=== PATIENT | female | born 1940 | race Caucasian/White ===

== ENCOUNTER 2017-10-14 17:20 | Emergency (ER) | payer MEDICARE, MEDICAID ==
[2017-10-14 17:23] VITALS: BP 140/78
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
--- NOTE | 2017-10-14 18:43 | RADIOLOGY REPORT (SQ) ---
EXAM DESCRIPTION: WRIST LEFT 3 VIEWS COMPLETED DATE/TIME: 10/14/2017 6:18 pm REASON FOR STUDY: pain COMPARISON: None. NUMBER OF VIEWS: Three views. TECHNIQUE: AP, lateral, and oblique radiographic images acquired of the left wrist. LIMITATIONS: None. FINDINGS: MINERALIZATION: Normal. BONES: No acute fracture or dislocation. No worrisome bone lesions. Normal alignment. Prominent de generative changes at the 1st carpometacarpal joint with sclerosis and osteophytes. SOFT TISSUES: No soft tissue swelling. Soft tissue calcification. No foreign body. OTHER: No other significant finding. IMPRESSION: PROMINENT DEGENERATIVE CHANGES AT THE BASE OF THE THUMB. NO OTHER SIGNIFICANT FINDINGS OR ACUTE FINDINGS. TECHNICAL DOCUMENTATION: JOB ID: [id number] [employer]- All Rights Reserved
[2017-10-14] MEDS ORDERED: ACETAMINOPHEN 325 MG TABLET PO ONE (19:08)
== END 2017-10-15 01:00 | disposition home or self-care (01) ==
LOC: ER 17:20
DX: S60.862A Insect bite (nonvenomous) of left wrist, initial encounter (principal); M25.532 Pain in left wrist; W57.XXXA Bitten or stung by nonvenomous insect and other nonvenomous arthropods, initial encounter; Z87.891 Personal history of nicotine dependence
CPT/HCPCS: 99283; 73110; L3908; A9270

== ENCOUNTER 2017-12-09 15:11 | Emergency (ER) | payer MEDICARE, MEDICAID ==
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
--- NOTE | 2017-12-09 15:54 | RADIOLOGY REPORT (SQ) ---
EXAM DESCRIPTION: CT HEAD WITHOUT; CT CERVICAL SPINE WITHOUT COMPLETED DATE/TIME: 12/09/2017 3:38 pm; 12/09/2017 3:42 pm REASON FOR STUDY: TRAUMA/PAIN COMPARISON: None. TECHNIQUE: Axial images acquired through the brain and cervical spine without intravenous contrast. Images reviewed with brain, subdural, lung, soft tissue and bone windows. Reconstructed coronal and sagittal MPR images reviewed. Images stored on PACS. All CT scanners at this facility use dose modulation, iterative reconstruction, and/or weight based d osing when appropriate to reduce radiation dose to as low as reasonably achievable (ALARA). [facility]: Dose Right [facility]: CareDose [facility]: Dose Right [facility]: Teradose 4D [facility]: [employer] RADIATION DOSE: CT Rad equipment meets quality standard of care and radiation dose reduction techniq ues were employed. CTDIvol: 64.6 mGy. DLP: 1163 mGy-cm.; CT Rad equipment meets quality standard of c are and radiation dose reduction techniques were employed. CTDIvol: 19.5 mGy. DLP: 362 mGy-cm. mGy. LIMITATIONS: None. FINDINGS: Brain Minimal small vessel disease is suggested in the deep white matter. No hemorrhage or mass or shift o r hydrocephalus. No skull fracture. A clear paranasal sinuses with intact orbits. Suspect high pos terior right scalp soft tissue hematoma. Cervical spine: No significant malalignment, allowing for minimal degenerative appearing listhesis at C4-5. Multilev el spondylosis with disc and facet disease throughout. No fracture or bone lesion. Mild ligament th ickening with calcification posterior to the odontoid ; mild encroachment on the central canal here. Soft tissues normal. Lung apices clear. IMPRESSION: 1. No acute brain pathology. 2. No acute findings in the cervical spine, degenerative changes are present. TECHNICAL DOCUMENTATION: JOB ID: [id number] Quality ID # [id number]: Final reports with documentation of one or more dose reduction techniques (e.g., Au tomated exposure control, adjustment of the mA and/or kV according to patient size, use of iterative reconstruction technique) 2010 [employer]- All Rights Reserved
--- NOTE | 2017-12-09 16:09 | RADIOLOGY REPORT (SQ) ---
EXAM DESCRIPTION: SACRUM AND COCCYX COMPLETED DATE/TIME: 12/09/2017 3:52 pm REASON FOR STUDY: TRAUMA/PAIN COMPARISON: None. NUMBER OF VIEWS: Three views. TECHNIQUE: AP, lateral, and tilt views of the sacrum and coccyx. LIMITATIONS: Osteopenia. FINDINGS: MINERALIZATION: Osteopenia. BONES: No acute fracture or dislocation. No worrisome bone lesions. SOFT TISSUES: No soft tissue swelling. No foreign body. OTHER: Lower lumbar spondylosis with mild degenerative anterolisthesis at L4-5 and marked disc space narrowing at the lumbosacral junction. IMPRESSION: Limiting osteopenia. No coccyx or sacral fracture evident. TECHNICAL DOCUMENTATION: JOB ID: [id number] [employer] All Rights Reserved
[2017-12-09] MEDS ORDERED: ACETAMINOPHEN 325 MG TABLET PO ONE (16:46)
[2017-12-09 18:19] VITALS: BP 143/75
== END 2017-12-09 18:30 | disposition home or self-care (01) ==
LOC: ER 15:11
DX: S00.03XA Contusion of scalp, initial encounter (principal); S30.0XXA Contusion of lower back and pelvis, initial encounter; Y04.8XXA Assault by other bodily force, initial encounter
CPT/HCPCS: 99284; 72220; 70450; 72125; A9270

== ENCOUNTER 2019-05-12 16:16 | Emergency (ER) | payer MEDICARE, MEDICAID ==
[2019-05-12 16:30] VITALS: BP 127/76
--- NOTE | 2019-05-12 18:57 | ER Document Report ---
ED Extremity Problem, Lower - General Chief Complaint: Foot Pain Stated Complaint: FOOT SWOLLEN Time Seen by Provider: 05/12/19 18:18 Primary Care Provider: LUCIANO RODRIGUEZ FNP-C [Primary Care Provider] - Follow up as needed TRAVEL OUTSIDE OF THE [place] IN LAST 30 DAYS: No - HPI Notes: Patient is a 78-year-old female with Alzheimer's dementia that presents to the emergency department for chief complaint of left foot redness. Patient tells me that she believes her foot became red yesterday. She is from the [facility] who reports she has had redness in her left foot since cutting her toenails a week ago. Patient has not had any reported change in mental status and is at her baseline dementia. She has not had any fevers. They report no history of injury. HPI is limited because of patient's Alzheimer's. Past Medical History: Alzheimer's dementia Past Surgical History: Reviewed in chart Social History: Lives at the [facility]. Family History: Reviewed and noncontributory for presenting illness Allergies: Reviewed, see documented allergy list. REVIEW OF SYSTEMS: Unable to obtain because of dementia PHYSICAL EXAMINATION: Vital signs reviewed, nursing noted reviewed. GENERAL: Well-appearing, well-nourished and in no acute distress. HEAD: Atraumatic, normocephalic. EYES: Eyes appear normal, extraocular movements intact, sclera anicteric, conjunctiva are normal. ENT: nares patent, oropharynx clear without exudates. Moist mucous membranes. NECK: Normal range of motion, supple without lymphadenopathy LUNGS: Breath sounds clear to auscultation bilaterally and equal. No wheezes rales or rhonchi. HEART: Regular rate and rhythm without murmurs ABDOMEN: Soft, nontender, normoactive bowel sounds. No rebound, guarding, or rigidity. No masses appreciated. EXTREMITIES: Nontender, good range of motion. No right lower externally edema. +2 left lower extremity pitting edema extending proximally to just below the knee. NEUROLOGICAL: Oriented to person only. Moves all extremities spontaneously Motor and sensory grossly intact on exam. PSYCH: Normal mood, normal affect. SKIN: Warm, Dry, normal turgor, trace erythema to the dorsal aspect of the left foot without lymphatic streaking, small overlying healing abrasion - Related Data Allergies/Adverse Reactions: soap Allergy (Verified 12/09/17 15:22) Past Medical History - Social History Smoking Status: Unknown if Ever Smoked Family History: Reviewed & Not Pertinent Patient has suicidal ideation: No Patient has homicidal ideation: No - Past Medical History Cardiac Medical History: Reports: Hx Hypercholesterolemia Renal/ Medical History: Denies: Hx Peritoneal Dialysis Psychiatric Medical History: Reports: Hx Dementia Past Surgical History: Reports: Hx Appendectomy, Hx Hysterectomy, Hx Kidney (Renal Surgery), Hx Tonsillectomy Physical Exam - Vital signs Vitals: Temp Pulse Resp BP Pulse Ox 98.2 F 74 18 127/76 H 96 05/12/19 16:29 05/12/19 16:29 05/12/19 16:29 05/12/19 16:29 05/12/19 16:29 Course - Re-evaluation Re-evalutation: 05/12/19 18:56 Vitals reviewed. Nursing notes reviewed. Patient is well-appearing and in no a cute distress. She does have edema to the left lower extremity with trace erythema on her dorsal foot. There appears to be a small overlying abrasion that is healing. There is no bleeding or drainage from the abrasion. She reports no injury and the arc reports no injury however given the abrasion x-ray will be ordered to evaluate for underlying bony injury. Because of her asymmetric edema Doppler of the left lower extremity has been ordered to evaluate for DVT. 05/12/19 20:24 Patient's x-ray and venous Doppler are both negative. She does have an opening in her skin with this abrasion and will be started on Keflex for early cellulitis. She has no systemic symptoms and her vital signs are stable. Patient is otherwise well-appearing. She will be discharged back to [facility] facility on Keflex. Foot X-Ray 05/12/19 18:36 IMPRESSION: Soft tissue swelling. No osseous finding. - Vital Signs Vital signs: Temp Pulse Resp BP Pulse Ox 98.2 F 74 18 127/76 H 96 05/12/19 16:29 05/12/19 16:29 05/12/19 16:29 05/12/19 16:29 05/12/19 16:29 Discharge - Discharge Clinical Impression: Cellulitis of left foot, Leg edema, left Condition: Stable Disposition: HOME, SELF-CARE Instructions: Cellulitis ([facility]) Additional Instructions: Please return to the emergency department if you have any worsening, or concern of your symptoms. Please return to the emergency department if you develop chest pain, difficulty breathing, severe abdominal pain, or ongoing vomiting. Please follow-up with your primary care physician in 2-3 days and any other recommended physicians. If prescribed, take all medications as directed. If you have any questions or concerns do not hesitate to return the emergency department for evaluation. Keep patient's left leg elevated above the level of the heart as often as possible Given Keflex prescription on 05/13/2019 Prescriptions: Cephalexin Monohydrate [Keflex 500 mg Capsule] 500 mg PO BID 5 Days capsule Referrals: LUCIANO RODRIGUEZ FNP-[place] [Primary Care Provider] - Follow up as needed
--- NOTE | 2019-05-12 19:29 | RADIOLOGY REPORT (SQ) ---
EXAM DESCRIPTION: FOOT LEFT COMPLETE COMPLETED DATE/TIME: 05/12/2019 7:05 pm REASON FOR STUDY: pain COMPARISON: None. NUMBER OF VIEWS: Three views. TECHNIQUE: AP, lateral and oblique radiographic images acquired of the left foot. LIMITATIONS: None. FINDINGS: MINERALIZATION: Normal. BONES: No acute fracture or dislocation. No worrisome bone lesions. JOINTS: No effusions. SOFT TISSUES: Dorsal soft tissue swelling. OTHER: No other significant finding. IMPRESSION: Soft tissue swelling. No osseous finding. TECHNICAL DOCUMENTATION: JOB ID: [id number] [employer]- All Rights Reserved Reading location - IP/workstation name: [email or web address]
[2019-05-12] MEDS ORDERED: CEPHALEXIN 500 MG CAPSULE PO ONE (20:23)
--- NOTE | 2019-05-13 06:48 | RADIOLOGY REPORT (SQ) ---
CLINICAL HISTORY: pain left leg COMPARISON: None. TECHNIQUE: US EXTREMITY VEINS UNILATERAL on 05/12/2019 6:35 PM CDT FINDINGS: The left common femoral, femoral and popliteal veins and right common femoral vein are normally compressible with patent flow and augmentation. The calf veins are patent. IMPRESSION: No DVT.
== END 2019-05-12 22:00 | disposition home or self-care (01) ==
LOC: ER 16:16
DX: L03.116 Cellulitis of left lower limb (principal); F02.80 Dementia in other diseases classified elsewhere, unspecified severity, without behavioral disturbance, psychotic disturbance, mood disturbance, and anxiety; M79.672 Pain in left foot; G30.9 Alzheimer's disease, unspecified; R60.0 Localized edema
CPT/HCPCS: 99285; 93971; 73630; A9270

== ENCOUNTER 2019-09-14 08:40 | Emergency (ER) | payer MEDICARE, MEDICAID ==
--- NOTE | 2019-09-14 09:49 | RADIOLOGY REPORT (SQ) ---
EXAM DESCRIPTION: CT CERVICAL SPINE WITHOUT COMPLETED DATE/TIME: 09/14/2019 9:32 am REASON FOR STUDY: pain s/p fall COMPARISON: None. TECHNIQUE: Axial images acquired through the cervical spine without intravenous contrast. Images re viewed with lung, soft tissue and bone windows. Reconstructed coronal and sagittal MPR images review ed. Images stored on PACS. All CT scanners at this facility use dose modulation, iterative reconstruction, and/or weight based d osing when appropriate to reduce radiation dose to as low as reasonably achievable (ALARA). [facility]: Dose Right [facility]: CareDose [facility]: Dose Right [facility]: Teradose 4D [facility]: [employer] RADIATION DOSE: CT Rad equipment meets quality standard of care and radiation dose reduction techniq ues were employed. CTDIvol: 18.5 mGy. DLP: 353 mGy-cm. mGy. LIMITATIONS: None. FINDINGS: ALIGNMENT: Anatomic. MINERALIZATION: Normal. VERTEBRAL BODIES: No fractures or dislocation. DISCS: Multilevel disc space narrowing with osteophytes. FACETS, LATERAL MASSES, POSTERIOR ELEMENTS: Facet arthropathy. No fractures. No dislocation. No ac te-moak findings. HARDWARE: None in the spine. VISUALIZED RIBS: No fractures. LUNG APICES AND SOFT TISSUES: No significant or acute findings. OTHER: No other significant finding. IMPRESSION: CHRONIC DEGENERATIVE CHANGES. NO ACUTE FINDINGS. TECHNICAL DOCUMENTATION: JOB ID: [id number] Quality ID # [id number]: Final reports with documentation of one or more dose reduction techniques (e.g., Au tomated exposure control, adjustment of the mA and/or kV according to patient size, use of iterative reconstruction technique) 2010 [employer]- All Rights Reserved Reading location - IP/workstation name: [email or web address]
--- NOTE | 2019-09-14 09:51 | RADIOLOGY REPORT (SQ) ---
EXAM DESCRIPTION: CT HEAD WITHOUT COMPLETED DATE/TIME: 09/14/2019 9:32 am REASON FOR STUDY: pain s/p fall COMPARISON: None. TECHNIQUE: Axial images acquired through the brain without intravenous contrast. Images reviewed wi th bone, brain and subdural windows. Additional sagittal and coronal reconstructions were generated. Images stored on PACS. All CT scanners at this facility use dose modulation, iterative reconstruction, and/or weight based d osing when appropriate to reduce radiation dose to as low as reasonably achievable (ALARA). [facility]: Dose Right [facility]: CareDose [facility]: Dose Right [facility]: Teradose 4D [facility]: [employer] RADIATION DOSE: CT Rad equipment meets quality standard of care and radiation dose reduction techniq ues were employed. CTDIvol: 53.2 mGy. DLP: 1177 mGy-cm.mGy. LIMITATIONS: None. FINDINGS: VENTRICLES: Prominent. CEREBRUM: No masses. No hemorrhage. No midline shift. Areas of low density in the white matter mos t likely due to chronic micro-vascular ischemic change. No evidence for acute infarction. CEREBELLUM: No masses. No hemorrhage. No alteration of density. No evidence for acute infarction. EXTRAAXIAL SPACES: Age-related involutional change. No fluid collections. No masses. ORBITS AND GLOBE: No intra- or extraconal masses. Normal contour of globe without masses. CALVARIUM: No fracture. PARANASAL SINUSES: No fluid or mucosal thickening. SOFT TISSUES: No mass or hematoma. OTHER: No other significant finding. IMPRESSION: CHRONIC CHANGES OF ATROPHY AND MICROVASCULAR ISCHEMIA. NO ACUTE PROCESS. EVIDENCE OF ACUTE STROKE: NO. TECHNICAL DOCUMENTATION: JOB ID: [id number] Quality ID # [id number]: Final reports with documentation of one or more dose reduction techniques (e.g., Au tomated exposure control, adjustment of the mA and/or kV according to patient size, use of iterative reconstruction technique) 2010 [employer]- All Rights Reserved Reading location - IP/workstation name: [email or web address]
--- NOTE | 2019-09-14 10:13 | ER Document Report ---
ED Fall - General Chief Complaint: Fall Stated Complaint: FALL,NECK,BACK PAIN Time Seen by Provider: 09/14/19 09:52 Primary Care Provider: LUCIANO RODRIGUEZ FNP-C [Primary Care Provider] - Follow up as needed Notes: Very pleasant 78-year-old female with reported recent CVA presents to the emergency department via EMS from a [facility] care facility after a fall sustained prior to arrival. Patient states that she remembers catching her foot and falling and she remembers striking her head on the ground. Patient states that she has been forgetful. Patient denies any palpitations or lightheadedness prior to the fall, denies slurred speech or acute limb weakness, denies any chest pain. Per EMS report did say that she became dizzy prior to fall so it is unclear if her history is inconsistent secondary to her Alzheimer's. TRAVEL OUTSIDE OF THE [place] IN LAST 30 DAYS: No - Related data Allergies/Adverse Reactions: soap Allergy (Verified 12/09/17 15:22) Home Medications: See paperwork provided by facility Past Medical History - Social History Smoking Status: Never Smoker Family History: Reviewed & Not Pertinent Patient has suicidal ideation: No Patient has homicidal ideation: No - Past Medical History Cardiac Medical History: Reports: Hx Hypercholesterolemia Renal/ Medical History: Denies: Hx Peritoneal Dialysis Psychiatric Medical History: Reports: Hx Dementia, Hx Depression Past Surgical History: Reports: Hx Appendectomy, Hx Hysterectomy, Hx Kidney (Renal Surgery), Hx Tonsillectomy Review of Systems - Review of Systems Constitutional: See HPI EENT: See HPI Cardiovascular: See HPI Respiratory: See HPI Gastrointestinal: No symptoms reported Genitourinary: No symptoms reported Female Genitourinary: No symptoms reported Musculoskeletal: See HPI Skin: No symptoms reported Hematologic/Lymphatic: No symptoms reported Neurological/Psychological: See HPI Physical Exam - Vital signs Vitals: Temp Resp BP 98.4 F 18 128/72 H 09/14/19 08:46 09/14/19 08:46 09/14/19 08:46 - Notes Notes: PHYSICAL EXAMINATION: Reviewed vital signs and charting by RN GENERAL: Alert, interacts well. No acute distress. HEAD: Normocephalic, atraumatic. EYES: Pupils equal and round. Extraocular movements intact. ENT: Oral mucosa moist, tongue midline. NECK: Full range of motion. Trachea midline. LUNGS: Clear to auscultation bilaterally, no wheezes, rales, or rhonchi. No respiratory distress. HEART: Regular rate and rhythm. No murmur ABDOMEN: soft, non-tender. No distention. Bowel sounds present EXTREMITIES: Moves all 4 extremities spontaneously. No edema, No cyanosis. NEURO: A &O X 3, normal speech, normal gait, PERRL, EOMI, SILT, follows commands in all 4 extremities, no gross abnormalities of cranial nerves, no focal neuro deficits, no pronator drift, [id number] testing normal, rapid alternating hand movements normal, [id number] normal, student affairs dean strength 5/5 bilateral, 5/5 strength in both proximal and distal upper and lower extremities PSYCH: Normal affect, normal mood. SKIN: Warm, dry, normal turgor. No rashes or lesions noted. Course - Re-evaluation Re-evalutation: 09/14/19 10:14 Well-appearing in no acute distress, imaging was ordered per protocol. CT head did not show any evidence of acute stroke or intracranial bleed, did not show evidence of mass-effect. CT cervical did not show any evidence of fracture or other acute findings. Plan is to get an EKG and ambulate patient although she is [place] ambulated without difficulty. This is most likely a mechanical fall and unrelated to potential cardiac etiology. Pending EKG patient will be stable for discharge home. 09/14/19 11:39 EKG did show discordant T wave inversions in leads V2 through V6, rate of 60, normal axis. Initial troponin was negative. But it was less than 4 hours from the event so I am going to get a delta troponin. 09/14/19 17:57 Delta troponin negative. Patient is stable for discharge with follow-up with her primary provider. - Vital Signs Vital signs: Temp Pulse Resp BP Pulse Ox 98.4 F 70 16 135/89 H 98 09/14/19 14:30 09/14/19 14:30 09/14/19 14:30 09/14/19 14:30 09/14/19 14:30 - Laboratory Result Diagrams: 09/14/19 10:37 09/14/19 10:37 Laboratory results interpreted by me: 09/14/19 10:37 Urine Blood SMALL H Discharge - Discharge Clinical Impression: Fall Qualifiers: Encounter type: initial encounter Qualified Code(s): W19.XXXA - Unspecified fall, initial encounter Condition: Good Disposition: HOME, SELF-CARE Additional Instructions: You were seen in the emergency department this morning for a fall. The CT exams were normal which is very reassuring meaning he did not fracture your neck or suffer from an acute stroke. Your clinical exam is very reassuring. It is important to ensure that your home is safe. If you have any tripping hazards you should address them. These can include rugs or loose items. Please immediately return to the emergency department if you develop acute confusion, slurred speech, acute weakness, severe shortness of breath or severe chest pain, intractable nausea or vomiting, or if you have any other concerning symptoms. Referrals: LUCIANO RODRIGUEZ, INSTRUCTOR [employer]UCATION-C [Primary Care Provider] - Follow up as needed
[2019-09-14 10:49] LABS: ABSOLUTE EOSINOPHILS # (AUTO) 0.1 10^3/uL (0.0-0.6); ABSOLUTE MONOCYTES (AUTO) 0.7 10^3/uL (0.1-1.4); ABSOLUTE NEUT (AUTO) 3.3 10^3/uL (1.7-8.2); BASOPHILS % (AUTO) 0.7 % (0-2); EOSINOPHILS % (AUTO) 1.6 % (0-6); HEMATOCRIT 39.4 % (36.0-47.0); HEMOGLOBIN 13.3 g/dL (12.0-15.5); LYMPHOCYTES % (AUTO) 32.9 % (13-45); MEAN CORPUSCULAR HEMOGLOBIN 31.2 pg (27.0-33.4); MEAN CORPUSCULAR HGB CONC 33.8 g/dL (32.0-36.0); MEAN CORPUSCULAR VOLUME 92 fl (80-97); MONOCYTES % (AUTO) 11.5 % (3-13); PLATELET COUNT 219 10^3/uL (150-450); RED BLOOD COUNT 4.27 10^6/uL (3.72-5.28); RED CELL DISTRIBUTION WIDTH 13.5 % (11.5-14.0); SEGMENTED NEUTROPHILS % (AUTO) 53.3 % (42-78); TOTAL CELLS COUNTED % (AUTO) 100 %; WHITE BLOOD COUNT 6.2 10^3/uL (4.0-10.5)
[2019-09-14 10:50] LABS: APPEARANCE,URINE CLEAR; BILIRUBIN,URINE NEGATIVE (NEGATIVE); COLOR,URINE STRAW; GLUCOSE, URINE NEGATIVE (NEGATIVE); KETONES,URINE NEGATIVE (NEGATIVE); LEUKOCYTE ESTERASE,URINE NEGATIVE (NEGATIVE); NITRITE,URINE NEGATIVE (NEGATIVE); PROTEIN,URINE NEGATIVE (NEGATIVE); URINE SPECIFIC GRAVITY 1.004; UROBILINOGEN,URINE NEGATIVE mg/dL (<2.0)
[2019-09-14 11:04] LABS: ALBUMIN 3.6 g/dL (3.5-5.0); ALKALINE PHOSPHATASE 59 U/L (38-126); ANION GAP 7 (5-19); ASPARTATE AMINO TRANSFERASE 18 U/L (14-36); BILIRUBIN,DIRECT 0.1 mg/dL (0.0-0.4); BILIRUBIN,TOTAL 0.5 mg/dL (0.2-1.3); BLOOD UREA NITROGEN 20 mg/dL (7-20); CALCIUM 9.5 mg/dL (8.4-10.2); CARBON DIOXIDE 29 mmol/L (22-30); CHLORIDE 105 mmol/L (98-107); GLUCOSE 80 mg/dL (75-110); POTASSIUM 4.4 mmol/L (3.6-5.0); TOTAL PROTEIN 6.4 g/dL (6.3-8.2)
[2019-09-14 14:58] VITALS: BP 135/89
--- NOTE | 2019-09-14 17:12 | EKG REPORT ---
SEVERITY:- ABNORMAL ECG - SINUS RHYTHM LOW VOLTAGE IN FRONTAL LEADS ABNORMAL T, CONSIDER ISCHEMIA, ANTEROLATERAL LEADS : Confirmed by: Juan Carlos Campos MD 14-Sep-2019 17:12:05
== END 2019-09-14 14:55 | disposition home or self-care (01) ==
LOC: ER 08:40
DX: S09.90XA Unspecified injury of head, initial encounter (principal); M54.2 Cervicalgia; M54.9 Dorsalgia, unspecified; W19.XXXA Unspecified fall, initial encounter; Y92.009 Unspecified place in unspecified non-institutional (private) residence as the place of occurrence of the external cause; E78.00 Pure hypercholesterolemia, unspecified; Z90.710 Acquired absence of both cervix and uterus; Z86.73 Personal history of transient ischemic attack (TIA), and cerebral infarction without residual deficits
CPT/HCPCS: 36415; 70450; 72125; 80053; 81001; 84484; 85025; 93005; 93010; 99284

== ENCOUNTER 2019-10-10 15:54 | Emergency (ER) | payer MEDICARE, MEDICAID ==
--- NOTE | 2019-10-10 17:09 | ER Document Report ---
ED Medical Screen (RME) - General Chief Complaint: Pain With Urination Stated Complaint: PAINFUL URINATION Time Seen by Provider: 10/10/19 16:58 Primary Care Provider: LUCIANO RODRIGUEZ FNP-C [Primary Care Provider] - Follow up as needed Mode of Arrival: Medic Notes: 78-year-old female presented to the ED via EMS from the [facility] for frequent urination and disorientation. The EMS report states that the [facility] stated she was more confused than normal and she has been complaining of pain with urination. She does have abdominal pain to palpation. Her urine is very foul-smelling and thick. She does wear a diaper. Perineal area is slightly red. Urine and blood work will be sent. I have greeted and performed a rapid initial assessment of this patient. A comprehensive ED assessment and evaluation of the patient, analysis of test results and completion of medical decision making process will be conducted by an additional ED providers. TRAVEL OUTSIDE OF THE [place] IN LAST 30 DAYS: No - Related Data Allergies/Adverse Reactions: No Known Allergies Allergy (Unverified 10/10/19 16:26) Past Medical History - Past Medical History Cardiac Medical History: Reports: Hx Hypercholesterolemia Renal/ Medical History: Denies: Hx Peritoneal Dialysis Psychiatric Medical History: Reports: Hx Dementia, Hx Depression Past Surgical History: Reports: Hx Appendectomy, Hx Hysterectomy, Hx Kidney (Renal Surgery), Hx Tonsillectomy Doctor's Discharge - Discharge Referrals: LUCIANO RODRIGUEZ FNP-C [Primary Care Provider] - Follow up as needed
[2019-10-10 17:38] LABS: APPEARANCE,URINE TURBID; BILIRUBIN,URINE NEGATIVE (NEGATIVE); COLOR,URINE YELLOW; GLUCOSE, URINE NEGATIVE (NEGATIVE); KETONES,URINE TRACE mg/dL (NEGATIVE); PROTEIN,URINE 100 mg/dL (NEGATIVE); URINE SPECIFIC GRAVITY 1.011
[2019-10-10 17:44] LABS: ABSOLUTE BASOPHILS # (AUTO) 0.1 10^3/uL (0.0-0.2); ABSOLUTE LYMPHOCYTES (AUTO) 1.2 10^3/uL (0.5-4.7); ABSOLUTE MONOCYTES (AUTO) 1.9 10^3/uL (0.1-1.4); ABSOLUTE NEUT (AUTO) 10.7 10^3/uL (1.7-8.2); BASOPHILS % (AUTO) 0.4 % (0-2); HEMATOCRIT 37.1 % (36.0-47.0); HEMOGLOBIN 12.3 g/dL (12.0-15.5); LYMPHOCYTES % (AUTO) 8.6 % (13-45); MEAN CORPUSCULAR HEMOGLOBIN 30.5 pg (27.0-33.4); MEAN CORPUSCULAR HGB CONC 33.3 g/dL (32.0-36.0); MEAN CORPUSCULAR VOLUME 92 fl (80-97); MONOCYTES % (AUTO) 13.5 % (3-13); PLATELET COUNT 249 10^3/uL (150-450); RED BLOOD COUNT 4.04 10^6/uL (3.72-5.28); RED CELL DISTRIBUTION WIDTH 13.4 % (11.5-14.0); SEGMENTED NEUTROPHILS % (AUTO) 77.5 % (42-78); TOTAL CELLS COUNTED % (AUTO) 100 %; WHITE BLOOD COUNT 13.9 10^3/uL (4.0-10.5)
[2019-10-10 18:06] LABS: ALBUMIN 3.5 g/dL (3.5-5.0); ALKALINE PHOSPHATASE 69 U/L (38-126); ANION GAP 8 (5-19); ASPARTATE AMINO TRANSFERASE 20 U/L (14-36); BILIRUBIN,DIRECT 0.1 mg/dL (0.0-0.4); BILIRUBIN,TOTAL 0.7 mg/dL (0.2-1.3); BLOOD UREA NITROGEN 24 mg/dL (7-20); CALCIUM 9.2 mg/dL (8.4-10.2); CARBON DIOXIDE 26 mmol/L (22-30); CHLORIDE 105 mmol/L (98-107); GLUCOSE 121 mg/dL (75-110); POTASSIUM 4.1 mmol/L (3.6-5.0); TOTAL PROTEIN 6.6 g/dL (6.3-8.2)
[2019-10-10] MEDS ORDERED: CEFTRIAXONE 1 GM/D5W RTU 1 GM/50 ML RTUPB IV SCH (20:00)
--- NOTE | 2019-10-10 20:05 | ER Document Report ---
ED General - General Mode of Arrival: Medic TRAVEL OUTSIDE OF THE [place] IN LAST 30 DAYS: No <AMAURI WILHELM - Last Filed: 10/10/19 20:36> <RUDY KUMAR IV - Last Filed: 10/10/19 22:57> - General Chief Complaint: Pain With Urination Stated Complaint: PAINFUL URINATION Time Seen by Provider: 10/10/19 16:58 Primary Care Provider: LUCIANO RODRIGUEZ FNP-C [Primary Care Provider] - Follow up as needed Notes: 78-year-old woman history of dementia presents to the emergency department with a history of increased confusion and concerns that the patient may have a urinary tract infection. Apparently she has complained of burning with urination. (AMAURI WLIHELM) - Related Data Allergies/Adverse Reactions: No Known Allergies Allergy (Unverified 10/10/19 16:26) Past Medical History - Social History Smoking Status: Unknown if Ever Smoked Family History: Reviewed & Not Pertinent Patient has suicidal ideation: No Patient has homicidal ideation: No - Past Medical History Cardiac Medical History: Reports: Hx Hypercholesterolemia Renal/ Medical History: Denies: Hx Peritoneal Dialysis Psychiatric Medical History: Reports: Hx Dementia, Hx Depression Past Surgical History: Reports: Hx Appendectomy, Hx Hysterectomy, Hx Kidney (Renal Surgery), Hx Tonsillectomy <AMAURI WILHELM - Last Filed: 10/10/19 20:36> Review of Systems - Review of Systems -: Yes ROS unobtainable due to patient's medical condition - Dementia and poorly responsive <AMAURI WILHELM - Last Filed: 10/10/19 20:36> Physical Exam <AMAURI WILHELM - Last Filed: 10/10/19 20:36> - Vital signs Vitals: Temp Pulse Resp BP Pulse Ox 99.8 F 75 18 124/61 93 10/10/19 17:18 10/10/19 17:18 10/10/19 17:18 10/10/19 17:18 10/10/19 17:18 - Notes Notes: PHYSICAL EXAMINATION: Physical Exam: General: Frail elderly female in no acute distress HEENT: NC/AT, pupils equal round and reactive to light, MM moist,nares clear, Neck: supple, no adenopathy, no masses. Lungs: clear, no wheezing, no rales no rhonchi CVS: Tachycardic rate and rhythm no murmur gallop or rub Abdomen: Soft active nontender, no masses, no hepatosplenomegaly Ext: No edema clubbing or cyanosis. Neuro: Alert and nonverbal, spontaneously moving all 4 extremities, no obvious focal neurologic abnormalities Skin: Intact no open lesions, no rash PSYCH: Normal mood, normal affect. (AMAURI WILHELM) Course - Laboratory Result Diagrams: 10/10/19 17:30 10/10/19 17:30 <AMAURI WILHELM - Last Filed: 10/10/19 20:36> - Laboratory Result Diagrams: 10/10/19 17:30 10/10/19 17:30 <RUDY KUMAR IV - Last Filed: 10/10/19 22:57> - Re-evaluation Re-evalutation: 10/10/19 20:32 78-year-old frail elderly Alzheimer's patient with fever, UTI and elevated white blood cell count. Lactic acid, blood cultures, fluids to be ordered. IV antibiotics ceftriaxone 1 g IV ordered. I have discussed the patient with Dr. Kumar, he will assume the care and disposition. (AMAURI WILHELM) 10/10/19 22:53 PT ABLE TO TOLERATE PO TYLENOL. STATES SHE FEELS "OKAY" WHEN ASKED HOW SHE IS FEELING BY THIS MD. PLAN: PRIOR URINE CX SHOWS SENSITIVITY TO MULTIPLE ABXS, INCLUDING BACTRIM. WILL D/C PT WITH RX FOR BACTRIM BID X 10 DAYS. (RUDY KUMAR IV) - Vital Signs Vital signs: Temp Pulse Resp BP Pulse Ox 101.8 F H 75 18 124/61 93 10/10/19 20:13 10/10/19 17:18 10/10/19 17:18 10/10/19 17:18 10/10/19 17:18 - Laboratory Laboratory results interpreted by me: 10/10/19 10/10/19 10/10/19 17:02 17:30 17:30 WBC 13.9 H Lymph % (Auto) 8.6 L [place] % (Auto) 13.5 H Absolute Neuts (auto) 10.7 H Absolute Monos (auto) 1.9 H BUN 24 H Est GFR (MDRD) Non-Af 55 L Glucose 121 H Urine Protein 100 H Urine Ketones TRACE H Urine Blood SMALL H Urine Nitrite (Reflex) POSITIVE H Urine Urobilinogen 4.0 H Leukocyte Esterase Rfl LARGE H Discharge <AMAURI WILHELM - Last Filed: 10/10/19 20:36> <CAMACHORUDY IV - Last Filed: 10/10/19 22:57> - Discharge Clinical Impression: UTI (urinary tract infection) Condition: Good Disposition: SNF-Other Instructions: Urinary Tract Infection ([facility]) Additional Instructions: Return to the Emergency Department without delay if any worse. HOME CARE INSTRUCTIONS & INFORMATION: Thank you for choosing us for your medical needs. We hope you're satisfied with the care you received. After you leave, you must properly care for your problem and, at the same time, observe its progress. Any condition can change. Some illnesses can change rapidly over hours or days. If your condition worsens, return to the Emergency Department or see your physician promptly. ABOUT YOUR X-RAYS AND EKG'S: If you had an EKG or X-rays taken, they have been read by the Emergency Physician. The X-rays and EKG's will also be read by a Radiologist or Dry Starch Operator within 24 hours. If discrepancies are noted, you will be notified by telephone. Please be certain the ED has a correct telephone number & address where you can be reached. Also, realize that some fractures or abnormalities do not show up on initial X-rays. If your symptoms continue, see your physician. ABOUT YOUR LABORATORY TEST: If you had laboratory tests, the results have been reviewed by the Emergency Physician. Some test results (for example cultures) may not be available for several days. You will be contacted if any test result shows you need additional treatment. Please be certain the ED has a correct telephone number and address where you can be reached. ABOUT YOUR MEDICATIONS: You will receive instructions on how to take your medicine on the prescription label you receive. Additional information may be provided by the Pharmacy. If you have questions afterwards, call the ED for clarification or further instructions. Some prescribed medications may cause drowsiness. Do not perform tasks such as driving a car or operating machinery without consulting your Pharmacist. If you feel you need a refill of pain medication, your condition will need re-evaluation. Please do not call for a refill of any medication. ABOUT YOUR SIGNATURE: Signature of this document acknowledges to followin. Understanding that you received emergency treatment and that you may be released before al medical problems are known or treated. Please be certain the ED has a correct phone number & address where you can be reached. 2. Acknowledgement that you will arrange for follow-up care as recommended. 3. Authorization for the Emergency Physician to provide information to your follow-up Physician in order to maximize your care. AT ANY TIME, IF YOUR SYMPTOMS CHANGE SIGNIFICANTLY OR WORSEN OR YOU DEVELOP NEW SYMPTOMS, RETURN TO THE EMERGENCY DEPARTMENT IMMEDIATELY FOR RE-EVALUATION. OUR GOAL IS TO PROVIDE EXCELLENT MEDICAL CARE! WE HOPE THAT WE HAVE MET YOUR EXPECTATIONS DURING YOUR EMERGENCY DEPARTMENT VISIT AND THAT YOU FEEL YOU HAVE RECEIVED EXCELLENT CARE! Prescriptions: Sulfamethoxazole/Trimethoprim [Bactrim Ds Tablet] 1 tab PO BID 10 Days #20 tablet Referrals: LUCIANO RODRIGUEZ FNP-C [Primary Care Provider] - Follow up as needed
[2019-10-10] MEDS ORDERED: ACETAMINOPHEN 325 MG TABLET PO ONE (21:04)
[2019-10-10] MEDS ORDERED: NORMAL SALINE 1000 ML 1,000 ML IV ONE (21:04)
[2019-10-10 23:04] VITALS: BP 106/63
== END 2019-10-11 00:01 ==
LOC: ER 15:54
DX: N39.0 Urinary tract infection, site not specified (principal); R00.0 Tachycardia, unspecified; R50.9 Fever, unspecified; G30.9 Alzheimer's disease, unspecified; F02.80 Dementia in other diseases classified elsewhere, unspecified severity, without behavioral disturbance, psychotic disturbance, mood disturbance, and anxiety
CPT/HCPCS: 99284; 96361; 51701; 96365; 36415; 87040; 83690; 85025; 80053; 81001; 83605; A9270; J3490; J7030; J0696

== ENCOUNTER 2020-04-23 11:27 | Inpatient (IN) | payer MEDICARE, MEDICAID ==
[2020-04-23] MEDS ORDERED: ACETAMINOPHEN 650 MG SUPP.RECT PR ONE (11:58)
--- NOTE | 2020-04-23 12:22 | RADIOLOGY REPORT (SQ) ---
EXAM DESCRIPTION: CHEST SINGLE VIEW IMAGES COMPLETED DATE/TIME: 04/23/2020 12:06 pm REASON FOR STUDY: suspect sepsis COMPARISON: None. EXAM PARAMETERS: NUMBER OF VIEWS: One view. TECHNIQUE: Single frontal radiographic view of the chest acquired. RADIATION DOSE: NA LIMITATIONS: None. FINDINGS: LUNGS AND PLEURA: No opacities, masses or pneumothorax. No pleural effusion. MEDIASTINUM AND HILAR STRUCTURES: No masses. Contour normal. HEART AND VASCULAR STRUCTURES: Heart normal in size. Normal vasculature. BONES: No acute findings. HARDWARE: None in the chest. OTHER: No other significant finding. IMPRESSION: NO ACUTE RADIOGRAPHIC FINDING IN THE CHEST. TECHNICAL DOCUMENTATION: JOB ID: [id number] 2010 [employer]- All Rights Reserved Reading location - IP/workstation name: [email or web address]
[2020-04-23 12:28] LABS: ABSOLUTE BASOPHILS # (AUTO) 0.1 10^3/uL (0.0-0.2); ABSOLUTE LYMPHOCYTES (AUTO) 1.8 10^3/uL (0.5-4.7); ABSOLUTE MONOCYTES (AUTO) 1.8 10^3/uL (0.1-1.4); ABSOLUTE NEUT (AUTO) 9.6 10^3/uL (1.7-8.2); BASOPHILS % (AUTO) 0.4 % (0-2); EOSINOPHILS % (AUTO) 0.1 % (0-6); HEMATOCRIT 39.9 % (36.0-47.0); HEMOGLOBIN 13.1 g/dL (12.0-15.5); LYMPHOCYTES % (AUTO) 13.3 % (13-45); MEAN CORPUSCULAR HEMOGLOBIN 30.8 pg (27.0-33.4); MEAN CORPUSCULAR HGB CONC 32.8 g/dL (32.0-36.0); MEAN CORPUSCULAR VOLUME 94 fl (80-97); MONOCYTES % (AUTO) 13.4 % (3-13); PLATELET COUNT 229 10^3/uL (150-450); RED BLOOD COUNT 4.26 10^6/uL (3.72-5.28); RED CELL DISTRIBUTION WIDTH 14.1 % (11.5-14.0); SEGMENTED NEUTROPHILS % (AUTO) 72.8 % (42-78); TOTAL CELLS COUNTED % (AUTO) 100 %; WHITE BLOOD COUNT 13.2 10^3/uL (4.0-10.5)
[2020-04-23 12:32] LABS: INTERNATIONAL RATION (INR) 1.13; PROTHROMBIN TIME 14.6 SEC (11.4-15.4)
[2020-04-23 12:45] LABS: ALBUMIN 3.8 g/dL (3.5-5.0); ALKALINE PHOSPHATASE 62 U/L (38-126); ANION GAP 5 (5-19); ASPARTATE AMINO TRANSFERASE 20 U/L (14-36); BILIRUBIN,TOTAL 0.6 mg/dL (0.2-1.3); BLOOD UREA NITROGEN 26 mg/dL (7-20); CALCIUM 9.5 mg/dL (8.4-10.2); CARBON DIOXIDE 28 mmol/L (22-30); CHLORIDE 103 mmol/L (98-107); GLUCOSE 102 mg/dL (75-110); POTASSIUM 4.2 mmol/L (3.6-5.0); TOTAL PROTEIN 6.8 g/dL (6.3-8.2)
[2020-04-23] MEDS ORDERED: NORMAL SALINE 1000 ML 2,300 ML IV PRN (12:46)
--- NOTE | 2020-04-23 12:49 | ER Document Report ---
ED General - General Chief Complaint: Altered Mental Status Stated Complaint: ALTERED MENTAL STATUS Time Seen by Provider: 04/23/20 11:59 Primary Care Provider: LUCIANO RODRIGUEZ FNP-C [Primary Care Provider] - Follow up as needed Mode of Arrival: Medic Information source: Patient Notes: This 79-year-old woman presents to the emergency department history of altered mental status noted this morning. She is brought to the emergency department from the [facility] by EMS. Apparently was normal but yesterday and last night, found today confused and disoriented. Patient was noted to have a temperature of 103.9. There is no further history regarding the onset or duration of her symptoms. Patient is unable to give a history. TRAVEL OUTSIDE OF THE [place] IN LAST 30 DAYS: No - Related Data Allergies/Adverse Reactions: No Known Allergies Allergy (Verified 04/23/20 12:01) Home Medications: Pt. arrived via EMS from the [facility] of [place], C/O of altered Mental Status. Per EMS, caregivers stated that the the Pt. was not acting like herself. Pt. is A & O X1, vitals were stable for EMS. However, when pt. arrived she was found to be febrile with a taurus of 103.9 Rectally. Pt. was placed on public service administrator, and chnaged into a gown. IV access was obtained and blood cultures and labs were drawn. Pt. is in room resting at this time. Past Medical History - Social History Smoking Status: Unknown if Ever Smoked Chew tobacco use (# tins/day): No Frequency of alcohol use: None Family History: Reviewed & Not Pertinent Patient has homicidal ideation: No - Past Medical History Cardiac Medical History: Reports: Hx Hypercholesterolemia Renal/ Medical History: Denies: Hx Peritoneal Dialysis Psychiatric Medical History: Reports: Hx Dementia, Hx Depression Past Surgical History: Reports: Hx Appendectomy, Hx Hysterectomy, Hx Kidney (Renal Surgery), Hx Tonsillectomy Review of Systems - Review of Systems -: Yes ROS unobtainable due to patient's medical condition - Due to confusion/dementia Physical Exam - Vital signs Vitals: Temp 103.9 F H 04/23/20 11:27 - Notes Notes: PHYSICAL EXAMINATION: Physical Exam: General: Poorly responsive 79-year-old woman with obvious confusion HEENT: NC/AT, pupils equal round and reactive to light, MM moist,nares clear, oropharynx clear, airway patent Neck: supple, no adenopathy, no masses. Good range of motion Lungs: clear, no wheezing, no rales no rhonchi CVS: Tachycardic rate and rhythm no murmur gallop or rub Abdomen: Soft, active, nontender, no masses, no hepatosplenomegaly Ext: No edema, clubbing or cyanosis. Neuro: Confused and answering questions with nonsensical answers, no focal neurologic findings Skin: Intact no open lesions, no rash Course - Re-evaluation Re-evalutation: 04/23/20 14:04 Patient presents with fever of 103.9 and increased confusion. She is from the [facility], appears to be a full code, a sepsis evaluation is carried out, the patient is given normal saline 30mL/kg, Zosyn 3.375 g IV, blood cultures x2 lactate levels were also performed. Lactic acid was 1.5, WBC 13.2, urinalysis reveals nitrite positive urine with 68 WBCs and moderate leukocyte esterase. Patient is being treated for a urinary tract infection with possible sepsis. After hydration and IV antibiotics the patient is more alert, temperature continues at 101, she is given a dose of ibuprofen in the emergency department. 04/23/20 15:00 I have spoken with the hospitalist, Dr. Villegas and a request for rapid coronavirus testing prior to admission given that the patient is coming from long-term care facility and febrile. - Vital Signs Vital signs: Temp Pulse Resp BP Pulse Ox 101.6 F H 88 18 121/62 98 04/23/20 13:52 04/23/20 12:09 04/23/20 14:00 04/23/20 13:01 04/23/20 14:00 - Laboratory Result Diagrams: 04/23/20 11:54 04/23/20 11:54 Laboratory results interpreted by me: 04/23/20 04/23/20 04/23/20 11:54 11:54 12:35 WBC 13.2 H RDW 14.1 H [place] % (Auto) 13.4 H Absolute Neuts (auto) 9.6 H Absolute Monos (auto) 1.8 H Sodium 136.2 L BUN 26 H Urine Protein 100 H Urine Ketones TRACE H Urine Blood MODERATE H Urine Nitrite (Reflex) POSITIVE H Urine Urobilinogen 4.0 H Leukocyte Esterase Rfl MODERATE H - Diagnostic Test Radiology reviewed: Image reviewed, Reports reviewed Radiology results interpreted by me: 04/23/20 15:02 Chest x-ray: No acute cardiopulmonary findings. - EKG Interpretation by Me EKG shows normal: Sinus rhythm, Boomer - Normal, QRS Complexes - Low voltage in the anterior leads, ST-T Waves - No acute ST or T wave changes, no ischemic findings. Rate: Normal - 78 bpm Rhythm: NSR Critical Care Note - Critical Care Note Total time excluding time spent on procedures (mins): 60 - Critical care time spent obtaining history from patient or surrogate, discussions with consultants, development of treatment plan with patient or surrogate, evaluation of patient's response to treatment, examination of patient, ordering and performing treatments and interventions, ordering and review of laboratory studies, re- evaluation of patient's condition, ordering and review of radiographic studies and review of old charts Discharge - Discharge Clinical Impression: Encephalopathy due to infection, Dementia UTI (urinary tract infection) Qualifiers: Urinary tract infection type: site unspecified Hematuria presence: without hematuria Qualified Code(s): N39.0 - Urinary tract infection, site not specified Fever Qualifiers: Fever type: due to other condition Qualified Code(s): R50.81 - Fever presenting with conditions classified elsewhere Sepsis Qualifiers: Sepsis type: sepsis due to unspecified organism Sepsis acute organ dysfunction status: unspecified Qualified Code(s): A41.9 - Sepsis, unspecified organism Condition: Good Disposition: ADMITTED INPATIENT Admitting Provider: Bakari (Hospitalist) Unit Admitted: Telemetry Referrals: LUCIANO RODRIGUEZ FNP-C [Primary Care Provider] - Follow up as needed
[2020-04-23 12:57] LABS: VENOUS BLOOD BASE EXCESS 2.1 mmol/L; VENOUS BLOOD PCO2 48.6 mmHg (35-63); VENOUS BLOOD PH 7.38 (7.30-7.42)
[2020-04-23 12:58] LABS: APPEARANCE,URINE SLIGHTLY-CLOUDY; BILIRUBIN,URINE NEGATIVE (NEGATIVE); COLOR,URINE YELLOW; GLUCOSE, URINE NEGATIVE (NEGATIVE); KETONES,URINE TRACE mg/dL (NEGATIVE); PROTEIN,URINE 100 mg/dL (NEGATIVE); URINE SPECIFIC GRAVITY 1.013
[2020-04-23] MEDS ORDERED: PIPERACILLIN/TAZOBACTAM 4.5 GM VIAL IV ONE (13:32)
[2020-04-23] MEDS: PIPERACILLIN SODIUM/TAZOBACTAM 4.5 GM in NORMAL SALINE 100 ML IV SCH ×3 (13:43→23:13)
[2020-04-23] MEDS ORDERED: IBUPROFEN 800 MG TABLET PO ONE (13:59)
[2020-04-23] MEDS ORDERED: MAG HYDROX/AL HYDROX/SIMETH SUSP 30 ML UDCUP PO PRN (16:08)
[2020-04-23] MEDS ORDERED: ONDANSETRON HCL INJ/PF 4 MG/2 ML SDV IV PRN (16:08)
[2020-04-23] MEDS ORDERED: IBUPROFEN 400 MG TABLET PO PRN (16:14)
[2020-04-23] MEDS ORDERED: RISPERIDONE 1 MG TABLET PO PRN (16:15)
[2020-04-23] MEDS ORDERED: LORAZEPAM 0.5 MG TABLET PO PRN (16:15)
--- NOTE | 2020-04-23 16:26 | PDOC H&P ---
History of Present Illness Admission Date/PCP: 04/23/20 15:15 JOHN HOPKINS Patient complains of: Fever History of Present Illness: LUCHO BROWN is a 79 year old female with of advanced dementia [baseline AO x1 and confused], who presents to the hospital from [facility] for evaluation of fever no reported change in mental status. Apparently patient became more confused today. She was also noted to be spiking fevers at the custodial. Patient is not able to divulge much history during physical encounter. She is alert and oriented to self alone. In the ER, patient was noted to have a positive urinalysis and referred to hospitalist service for admission for possible UTI. ER staff also confirms to me that patient is a full code per report from [facility]. Past Medical History Cardiac Medical History: Reports: Hyperlipidema Psychiatric Medical History: Reports: Dementia, Depression Past Surgical History Past Surgical History: Reports: Appendectomy, Hysterectomy, Tonsillectomy Social History Smoking Status: Unknown if Ever Smoked Electronic Cigarette use?: No Frequency of Alcohol Use: None Hx Recreational Drug Use: No - Advance Directive Resuscitation Status: Full Code Family History Family History: Reviewed & Not Pertinent Parental Family History Reviewed: Yes - Unknown also not pertinent Children Family History Reviewed: Unknown Sibling(s) Family History Reviewed.: Unknown Medication/Allergy Home Medications: Aripiprazole 2 mg PO QHS 10/10/19 Bupropion HCl [Wellbutrin 75 Mg Tablet] 75 mg PO DAILY 10/10/19 Dextromethorphan HBr/Quinidine [Nuedexta 20-10 mg Capsule] 1 each PO DAILY 10/10/19 Divalproex Sodium [Depakote Sprinkle] 250 mg PO TID 10/10/19 Lorazepam 0.5 mg PO Q12 10/10/19 Paroxetine HCl [Paxil 20 mg Tablet] 20 mg PO DAILY 10/10/19 Risperidone [Risperdal 1 mg Tablet] 1 mg PO Q8HP PRN 10/10/19 Allergies/Adverse Reactions: No Known Allergies Allergy (Verified 04/23/20 12:01) Review of Systems ROS unobtainable: Due to mental status Physical Exam Vital Signs: Temp Pulse Resp BP Pulse Ox 98.7 F 88 22 H 108/67 95 04/23/20 15:06 04/23/20 12:09 04/23/20 15:01 04/23/20 15:01 04/23/20 15:01 Intake & Output 04/22/20 04/23/20 04/24/20 06:59 06:59 06:59 Intake Total 100 Balance 100 Weight 77.111 kg General appearance: PRESENT: no acute distress, cooperative, well-nourished Head exam: PRESENT: normocephalic Eye exam: PRESENT: EOMI Mouth exam: PRESENT: neck supple Neck exam: ABSENT: JVD Respiratory exam: PRESENT: clear to auscultation coleman, symmetrical, unlabored. ABSENT: tachypnea, wheezes Cardiovascular exam: PRESENT: RRR, +S1, +S2. ABSENT: tachycardia GI/Abdominal exam: PRESENT: soft, tenderness - Mildly tender in the periumbilical region. ABSENT: distended, firm, guarding, rebound, rigid Extremities exam: PRESENT: pedal edema Neurological exam: PRESENT: alert, awake, oriented to person, other - Does not talk much and likes to keep her eyes closed except if instructed to open it.. ABSENT: oriented to place, oriented to time, oriented to situation Psychiatric exam: ABSENT: agitated, anxious Focused psych exam: ABSENT: pressured speech Results Laboratory Results: 04/23/20 11:54 04/23/20 11:54 04/23/20 04/23/20 04/23/20 11:54 11:54 11:54 WBC 13.2 H RBC 4.26 Hgb 13.1 Hct 39.9 MCV 94 MCH 30.8 MCHC 32.8 RDW 14.1 H Plt Count 229 Seg Neutrophils % 72.8 VBG pH VBG pCO2 VBG HCO3 VBG Base Excess Sodium 136.2 L Potassium 4.2 Chloride 103 Carbon Dioxide 28 Anion Gap 5 BUN 26 H Creatinine 0.89 Est GFR ( Amer) > 60 Glucose 102 Lactic Acid 1.5 Calcium 9.5 Total Bilirubin 0.6 AST 20 Alkaline Phosphatase 62 Total Protein 6.8 Albumin 3.8 Urine Color Urine Appearance Urine pH Ur Specific Holloway Urine Protein Urine Glucose (UA) Urine Ketones Urine Blood Urine RBC (Auto) 04/23/20 04/23/20 04/23/20 12:30 12:35 14:27 WBC RBC Hgb Hct MCV MCH MCHC RDW Plt Count Seg Neutrophils % VBG pH 7.38 VBG pCO2 48.6 VBG HCO3 28.0 VBG Base Excess 2.1 Sodium Potassium Chloride Carbon Dioxide Anion Gap BUN Creatinine Est GFR ( Amer) Glucose Lactic Acid 1.0 Calcium Total Bilirubin AST Alkaline Phosphatase Total Protein Albumin Urine Color YELLOW Urine Appearance SLIGHTLY-CLOUDY Urine pH 7.0 Ur Specific Holloway 1.013 Urine Protein 100 H Urine Glucose (UA) NEGATIVE Urine Ketones TRACE H Urine Blood MODERATE H Urine RBC (Auto) 19 Impressions: Chest X-Ray 04/23/20 11:39 IMPRESSION: NO ACUTE RADIOGRAPHIC FINDING IN THE CHEST. Assessment and Plan - Diagnosis (1) UTI (urinary tract infection) Qualifiers: Urinary tract infection type: site unspecified Hematuria presence: without hematuria Qualified Code(s): N39.0 - Urinary tract infection, site not specified Is this a current diagnosis for this admission?: Yes Plan: Urinalysis is positive. Given patient's dementia, it is hard to obtain if patient truly has urinary symptoms. Will treat empirically for UTI given fever with cefepime. Urine culture and blood cultures are pending. We will follow- up. (2) Fever Qualifiers: Fever type: due to other condition Qualified Code(s): R50.81 - Fever presenting with conditions classified elsewhere Is this a current diagnosis for this admission?: Yes Plan: Notably having fevers. However that does not seem to have respiratory symptoms. Exact source of fever is not quite certain but is suspected to be due to urinary tract infection. Chest x-ray is negative. Blood cultures pending. Skin survey done by me does not denote any infected wounds or ulcers. Sofa score is 1 [GCS assessment is skewed as patient has baseline confusion and AO x1 at baseline from her dementia]-sepsis unlikely We will continue to monitor closely. Tylenol and ibuprofen as needed for fevers We will test patient for COVID-19. (3) Dementia Is this a current diagnosis for this admission?: Yes Plan: Supportive care. Apparently patient is baseline confused and ANO x1. Lives at [facility] facility. (4) Depression with anxiety Is this a current diagnosis for this admission?: Yes Plan: Resume patient's psych medications (5) DVT prophylaxis Is this a current diagnosis for this admission?: Yes Plan: Lovenox - Time Time Spent with patient: 25-34 minutes
[2020-04-23] MEDS ORDERED: DIVALPROEX SODIUM 125 MG CAP.SPRINK PO ONE (18:51)
[2020-04-23] MEDS: DIVALPROEX SODIUM 125 MG CAP.SPRINK PO SCH (19:21)
[2020-04-23] MEDS ORDERED: CEFEPIME 2 GM/D5W RTU 2 GM/50 ML RTUPB IV ONE (21:25)
[2020-04-23] MEDS: ARIPIPRAZOLE 2 MG TABLET PO SCH (21:35)
[2020-04-23] MEDS ORDERED: CEFEPIME 2 GM/D5W RTU 2 GM/50 ML RTUPB IV SCH (22:00)
--- NOTE | 2020-04-23 22:11 | EKG REPORT ---
SEVERITY:- OTHERWISE NORMAL ECG - SINUS RHYTHM LOW VOLTAGE IN FRONTAL LEADS : Confirmed by: Shantel Cruz MD 23-Apr-2020 22:11:31
[2020-04-24] MEDS: PIPERACILLIN SODIUM/TAZOBACTAM 4.5 GM in NORMAL SALINE 100 ML IV SCH (05:10)
[2020-04-24] MEDS: ACETAMINOPHEN 325 MG TABLET PO PRN ×2 (05:34→20:20)
[2020-04-24 07:02] LABS: HEMATOCRIT 33.8 % (36.0-47.0); HEMOGLOBIN 11.4 g/dL (12.0-15.5); MEAN CORPUSCULAR HEMOGLOBIN 31.2 pg (27.0-33.4); MEAN CORPUSCULAR HGB CONC 33.7 g/dL (32.0-36.0); MEAN CORPUSCULAR VOLUME 93 fl (80-97); PLATELET COUNT 168 10^3/uL (150-450); RED BLOOD COUNT 3.65 10^6/uL (3.72-5.28); RED CELL DISTRIBUTION WIDTH 14.1 % (11.5-14.0); WHITE BLOOD COUNT 15.3 10^3/uL (4.0-10.5)
[2020-04-24 07:25] LABS: ANION GAP 7 (5-19); BLOOD UREA NITROGEN 23 mg/dL (7-20); CALCIUM 8.2 mg/dL (8.4-10.2); CARBON DIOXIDE 21 mmol/L (22-30); CHLORIDE 109 mmol/L (98-107); GLUCOSE 95 mg/dL (75-110); POTASSIUM 3.5 mmol/L (3.6-5.0)
[2020-04-24 07:32] LABS: ABSOLUTE LYMPHOCYTES# (MANUAL) 0.9 10^3/uL (0.5-4.7); ABSOLUTE MONOCYTES # (MANUAL) 1.7 10^3/uL (0.1-1.4); BAND NEUTROPHILS % (MANUAL) 7 % (3-5); BASOPHILS % (MANUAL) 0 % (0-2); EOSINOPHILS % (MANUAL) 0 % (0-6); LYMPHOCYTES % (MANUAL) 6 % (13-45); MONOCYTES % (MANUAL) 11 % (3-13); SEGMENTED NEUTROPHILS % (MAN) 76 % (42-78); TOTAL CELLS COUNTED 100
[2020-04-24 07:33] LABS: ANISOCYTOSIS 1+; PLATELET COMMENT ADEQUATE; POLYCHROMASIA 1+
[2020-04-24] MEDS: NORMAL SALINE 1000 ML 1,000 ML IV PRN ×2 (08:41→16:24)
[2020-04-24] MEDS ORDERED: POTASSIUM CHLORIDE 10 MEQ TABLET.ER PO ONE (08:45)
[2020-04-24] MEDS ORDERED: CEFEPIME HCL 2 GM in DEXTROSE 5%-WATER 50 ML IV SCH (10:00)
[2020-04-24] MEDS: BUPROPION HCL 75 MG TABLET PO SCH (10:15)
[2020-04-24] MEDS: DOCUSATE SODIUM 100 MG CAPSULE PO SCH (10:15)
[2020-04-24] MEDS: PAROXETINE HCL 20 MG TABLET PO SCH (10:15)
[2020-04-24] MEDS: DIVALPROEX SODIUM 125 MG CAP.SPRINK PO SCH ×3 (10:15→21:24)
[2020-04-24] MEDS: ENOXAPARIN SODIUM INJ 40 MG/0.4 ML DISP.SYRIN SUBCUT SCH (10:16)
[2020-04-24] MEDS ORDERED: NORMAL SALINE 500 ML IV ONE (11:30)
[2020-04-24] MEDS: IPRATROPIUM/ALBUTEROL 0.5-2.5 MG/3 ML AMPUL NEB PRN (13:02)
--- NOTE | 2020-04-24 15:13 | RADIOLOGY REPORT (SQ) ---
EXAM DESCRIPTION: CHEST SINGLE VIEW IMAGES COMPLETED DATE/TIME: 04/24/2020 2:36 pm REASON FOR STUDY: hypoxia COMPARISON: 04/23/2020 TECHNIQUE: Single frontal radiographic view of the chest acquired. NUMBER OF VIEWS: One view. LIMITATIONS: Mild RPO positioning. FINDINGS: LUNGS AND PLEURA: No pneumothorax. No consolidation or pleural effusion. Similar chronic interstitial changes. MEDIASTINUM AND HILAR STRUCTURES: Stable. HEART AND VASCULAR STRUCTURES: Stable. BONES: No acute findings. HARDWARE: None in the chest. OTHER: No other significant finding. IMPRESSION: NO ACUTE FINDINGS. TECHNICAL DOCUMENTATION: JOB ID: [id number] [id number] 2010 [employer]- All Rights Reserved Reading location - IP/workstation name: [email or web address]
[2020-04-24] MEDS ORDERED: PIPERACILLIN/TAZOBACTAM 3.375 GM VIAL IV SCH (15:15)
--- NOTE | 2020-04-24 17:16 | PDOC PROGRESS REPORT ---
Subjective Progress Note for:: 04/24/20 Subjective:: Patient is more awake and alert today. Still baseline confused and only oriented to self. He did get a little bit more hypoxic earlier this afternoon and was put on 2 L nasal cannula. Appeared comfortable at the time but we obtained a chest x-ray. Reason For Visit: URINARY TRACT INFECTION Physical Exam Vital Signs: Temp Pulse Resp BP Pulse Ox 98.3 F 86 28 H 101/52 L 92 04/24/20 13:30 04/24/20 13:30 04/24/20 13:30 04/24/20 13:30 04/24/20 13:30 Intake & Output 04/23/20 04/24/20 04/25/20 06:59 06:59 06:59 Intake Total 2750 1322 Balance 2750 1322 Weight 77.1 kg General appearance: PRESENT: no acute distress, cooperative Neck exam: ABSENT: JVD Respiratory exam: PRESENT: clear to auscultation coleman, unlabored. ABSENT: tachypnea, wheezes Cardiovascular exam: PRESENT: RRR, +S1, +S2. ABSENT: tachycardia GI/Abdominal exam: PRESENT: soft. ABSENT: rebound, rigid, tenderness Neurological exam: PRESENT: alert, awake, oriented to person. ABSENT: oriented to place, oriented to time, oriented to situation Psychiatric exam: ABSENT: agitated, anxious Focused psych exam: ABSENT: pressured speech Skin exam: ABSENT: dry, jaundice Results Laboratory Results: 04/24/20 06:30 04/24/20 06:30 04/23/20 04/24/20 04/24/20 18:55 06:30 06:30 WBC 15.3 H RBC 3.65 L Hgb 11.4 L Hct 33.8 L MCV 93 MCH 31.2 MCHC 33.7 RDW 14.1 H Plt Count 168 Seg Neutrophils % Not Reportable Sodium 136.6 L Potassium 3.5 L Chloride 109 H Carbon Dioxide 21 L Anion Gap 7 BUN 23 H Creatinine 0.77 Est GFR ( Amer) > 60 Glucose 95 Lactic Acid 1.0 Calcium 8.2 L Magnesium 1.7 Impressions: Chest X-Ray 04/24/20 00:00 IMPRESSION: NO ACUTE FINDINGS. Assessment and Plan - Diagnosis (1) UTI (urinary tract infection) Qualifiers: Urinary tract infection type: site unspecified Hematuria presence: without hematuria Qualified Code(s): N39.0 - Urinary tract infection, site not specified Is this a current diagnosis for this admission?: Yes Plan: Urinalysis is positive. Given patient's dementia, it is hard to obtain if patient truly has urinary symptoms. Will continue to treat empirically for UTI given fever with IV antibiotics. Urine culture is growing gram-negative rods and blood cultures negative so far. We will continue to follow. Awaiting speciation. (2) Fever Qualifiers: Fever type: due to other condition Qualified Code(s): R50.81 - Fever p resenting with conditions classified elsewhere Is this a current diagnosis for this admission?: Yes Plan: Last fever was notably at 5 AM this morning. However that does not seem to have respiratory symptoms. Exact source of fever is not quite certain but is suspected to be due to urinary tract infection. Chest x-ray yesterday and today still show only chronic interstitial changes but nothing acute. Blood cultures pending. Skin survey done by me does not denote any infected wounds or ulcers. Sofa score is 1 [GCS assessment is skewed as patient has baseline confusion and AO x1 at baseline from her dementia]-sepsis unlikely Tylenol and ibuprofen as needed for fevers Rapid COVID-19 test was negative. (3) Dementia Is this a current diagnosis for this admission?: Yes Plan: Supportive care. Apparently patient is baseline confused and ANO x1. Lives at [facility] facility. (4) Depression with anxiety Is this a current diagnosis for this admission?: Yes Plan: Resume patient's psych medications (5) DVT prophylaxis Is this a current diagnosis for this admission?: Yes Plan: Lovenox (6) Hypoxia Is this a current diagnosis for this admission?: Yes Plan: Noted to be hypoxic earlier this afternoon. However O2 sats look a lot better on 2 L. Chest x-ray does not show any new findings besides just some chronic changes in her lungs. Hypoxia may be vertebral secondary to chronic interstitial lung disease. This is never been officially diagnosed with a high- res CT. Will hold off on pursuing further CT imaging for now patient can have this done as outpatient. We will try to wean off oxygen if possible. - Time Time Spent with patient: 15-24 minutes
[2020-04-24] MEDS: ARIPIPRAZOLE 2 MG TABLET PO SCH (21:24)
[2020-04-24] MEDS: PIPERACILLIN SODIUM/TAZOBACTAM 3.375 GM in NORMAL SALINE 100 ML IV SCH (21:25)
[2020-04-25] MEDS: NORMAL SALINE 1000 ML 1,000 ML IV PRN (03:36)
[2020-04-25] MEDS: PIPERACILLIN SODIUM/TAZOBACTAM 3.375 GM in NORMAL SALINE 100 ML IV SCH (05:03)
[2020-04-25] MEDS: IPRATROPIUM/ALBUTEROL 0.5-2.5 MG/3 ML AMPUL NEB PRN ×2 (08:43→20:24)
[2020-04-25 08:47] LABS: ABSOLUTE EOSINOPHILS # (AUTO) 0.1 10^3/uL (0.0-0.6); ABSOLUTE LYMPHOCYTES (AUTO) 1.8 10^3/uL (0.5-4.7); ABSOLUTE MONOCYTES (AUTO) 1.8 10^3/uL (0.1-1.4); ABSOLUTE NEUT (AUTO) 8.7 10^3/uL (1.7-8.2); BASOPHILS % (AUTO) 0.4 % (0-2); EOSINOPHILS % (AUTO) 0.4 % (0-6); HEMATOCRIT 33.5 % (36.0-47.0); HEMOGLOBIN 11.2 g/dL (12.0-15.5); LYMPHOCYTES % (AUTO) 14.2 % (13-45); MEAN CORPUSCULAR HGB CONC 33.4 g/dL (32.0-36.0); MEAN CORPUSCULAR VOLUME 93 fl (80-97); MONOCYTES % (AUTO) 14.8 % (3-13); PLATELET COUNT 163 10^3/uL (150-450); RED CELL DISTRIBUTION WIDTH 13.8 % (11.5-14.0); SEGMENTED NEUTROPHILS % (AUTO) 70.2 % (42-78); TOTAL CELLS COUNTED % (AUTO) 100 %; WHITE BLOOD COUNT 12.4 10^3/uL (4.0-10.5)
[2020-04-25 08:58] LABS: ALBUMIN 2.7 g/dL (3.5-5.0); ALKALINE PHOSPHATASE 55 U/L (38-126); ANION GAP 6 (5-19); ASPARTATE AMINO TRANSFERASE 21 U/L (14-36); BILIRUBIN,TOTAL 0.6 mg/dL (0.2-1.3); BLOOD UREA NITROGEN 21 mg/dL (7-20); CALCIUM 8.5 mg/dL (8.4-10.2); CARBON DIOXIDE 22 mmol/L (22-30); CHLORIDE 109 mmol/L (98-107); GLUCOSE 120 mg/dL (75-110); POTASSIUM 3.6 mmol/L (3.6-5.0); TOTAL PROTEIN 5.3 g/dL (6.3-8.2)
[2020-04-25] MEDS: PAROXETINE HCL 20 MG TABLET PO SCH (09:58)
[2020-04-25] MEDS: BUPROPION HCL 75 MG TABLET PO SCH (09:58)
[2020-04-25] MEDS: ENOXAPARIN SODIUM INJ 40 MG/0.4 ML DISP.SYRIN SUBCUT SCH (09:58)
[2020-04-25] MEDS: DIVALPROEX SODIUM 125 MG CAP.SPRINK PO SCH ×3 (09:58→17:30)
[2020-04-25] MEDS: DOCUSATE SODIUM 100 MG CAPSULE PO SCH (09:58)
--- NOTE | 2020-04-25 13:45 | PDOC PROGRESS REPORT ---
Subjective Progress Note for:: 04/25/20 Subjective:: Patient is doing well today. She has no complaints. She is very cheerful. She denies any shortness of breath. Noted to be hypoxic on ambulation on room air earlier. Reason For Visit: URINARY TRACT INFECTION Physical Exam Vital Signs: Temp Pulse Resp BP Pulse Ox 97.9 F 90 18 113/73 95 04/25/20 08:00 04/25/20 08:43 04/25/20 08:43 04/25/20 08:00 04/25/20 08:43 Intake & Output 04/24/20 04/25/20 04/26/20 06:59 06:59 06:59 Intake Total 2750 4107 Balance 2750 4107 Weight 77.1 kg 76.6 kg General appearance: PRESENT: no acute distress, cooperative Neck exam: ABSENT: JVD Respiratory exam: PRESENT: clear to auscultation coleman, unlabored. ABSENT: tachypnea, wheezes Cardiovascular exam: PRESENT: RRR, +S1, +S2. ABSENT: tachycardia GI/Abdominal exam: PRESENT: soft. ABSENT: rebound, rigid, tenderness Neurological exam: PRESENT: alert, awake, oriented to person, other - Fully al ert and talkative. Cheerful. ABSENT: oriented to place, oriented to time, oriented to situation Results Laboratory Results: 04/25/20 08:15 04/25/20 08:15 04/25/20 04/25/20 08:15 08:15 WBC 12.4 H RBC 3.60 L Hgb 11.2 L Hct 33.5 L MCV 93 MCH 31.0 MCHC 33.4 RDW 13.8 Plt Count 163 Seg Neutrophils % 70.2 Sodium 137.0 Potassium 3.6 Chloride 109 H Carbon Dioxide 22 Anion Gap 6 BUN 21 H Creatinine 0.75 Est GFR ( Amer) > 60 Glucose 120 H Calcium 8.5 Magnesium 2.1 Total Bilirubin 0.6 AST 21 Alkaline Phosphatase 55 Total Protein 5.3 L Albumin 2.7 L Impressions: Chest X-Ray 04/24/20 00:00 IMPRESSION: NO ACUTE FINDINGS. Assessment and Plan - Diagnosis (1) UTI (urinary tract infection) Qualifiers: Urinary tract infection type: site unspecified Hematuria presence: without hematuria Qualified Code(s): N39.0 - Urinary tract infection, site not specifi ed Is this a current diagnosis for this admission?: Yes Plan: Urinalysis is positive. Given patient's dementia, it is hard to obtain if patient truly has urinary symptoms. Will continue to treat empirically for Urine culture growing E. coli which is sensitive to most to except ampicillin. Will put patient on cefazolin. Leukocytosis is improving. (2) Fever Qualifiers: Fever type: due to other condition Qualified Code(s): R50.81 - Fever presenting with conditions classified elsewhere Is this a current diagnosis for this admission?: Yes Plan: Currently afebrile. Suspected to be due to urinary tract infection. Chest x-ray show only chronic interstitial changes but nothing acute. Blood cultures pending. Skin survey done by me does not denote any infected wounds or ulcers. Sofa score is 1 [GCS assessment is skewed as patient has baseline confusion and AO x1 at baseline from her dementia]-sepsis unlikely Tylenol and ibuprofen as needed for fevers Rapid COVID-19 test was negative. (3) Dementia Qualifiers: Dementia type: unspecified type Dementia behavioral disturbance: without behavioral disturbance Qualified Code(s): F03.90 - Unspecified dementia without behavioral disturbance Is this a current diagnosis for this admission?: Yes Plan: Supportive care. Patient is back to her baseline fully alert and talkative but AO x1. Lives at [facility] facility. Initially had some delirium likely exacerbated by UTI. Delirium seems to have resolved. (4) Depression with anxiety Is this a current diagnosis for this admission?: Yes Plan: Resume patient's psych medications (5) DVT prophylaxis Is this a current diagnosis for this admission?: Yes Plan: Lovenox (6) Hypoxia Is this a current diagnosis for this admission?: Yes Plan: Noted to be hypoxic on ambulation earlier this morning but at rest is okay on room air. Chest x-ray does not show any new findings besides just some chronic interstitial findings in her lungs. Hypoxia may be secondary to chronic interstitial lung disease. This has never been officially diagnosed with a high-res CT. Will hold off on pursuing further CT imaging for now patient can have this done as outpatient. We will try to wean off oxygen if possible otherwise patient will need to be qualified for home O2. - Time Time Spent with patient: Less than 15 minutes
[2020-04-25] MEDS: CEFAZOLIN SODIUM 2 GM in DEXTROSE 5%-WATER 100 ML IV SCH ×2 (17:31→23:12)
[2020-04-25] MEDS ORDERED: CEFAZOLIN 2 GM/D5W RTU 2 GM/50 ML RTUPB IV SCH (18:00)
[2020-04-25] MEDS: ARIPIPRAZOLE 2 MG TABLET PO SCH (21:55)
[2020-04-26] MEDS: CEFAZOLIN SODIUM 2 GM in DEXTROSE 5%-WATER 100 ML IV SCH (05:32)
[2020-04-26] MEDS: IPRATROPIUM/ALBUTEROL 0.5-2.5 MG/3 ML AMPUL NEB PRN (09:00)
[2020-04-26] MEDS: DOCUSATE SODIUM 100 MG CAPSULE PO SCH ×2 (09:14→09:47)
[2020-04-26] MEDS: PAROXETINE HCL 20 MG TABLET PO SCH (09:14)
[2020-04-26] MEDS: DIVALPROEX SODIUM 125 MG CAP.SPRINK PO SCH (09:14)
[2020-04-26] MEDS: BUPROPION HCL 75 MG TABLET PO SCH (09:14)
[2020-04-26] MEDS: ENOXAPARIN SODIUM INJ 40 MG/0.4 ML DISP.SYRIN SUBCUT SCH (09:15)
[2020-04-26 09:47] LABS: ABSOLUTE EOSINOPHILS # (AUTO) 0.2 10^3/uL (0.0-0.6); ABSOLUTE LYMPHOCYTES (AUTO) 1.8 10^3/uL (0.5-4.7); ABSOLUTE MONOCYTES (AUTO) 1.4 10^3/uL (0.1-1.4); ABSOLUTE NEUT (AUTO) 5.6 10^3/uL (1.7-8.2); BASOPHILS % (AUTO) 0.3 % (0-2); EOSINOPHILS % (AUTO) 1.9 % (0-6); HEMATOCRIT 33.6 % (36.0-47.0); HEMOGLOBIN 11.2 g/dL (12.0-15.5); LYMPHOCYTES % (AUTO) 19.9 % (13-45); MEAN CORPUSCULAR HEMOGLOBIN 30.9 pg (27.0-33.4); MEAN CORPUSCULAR HGB CONC 33.4 g/dL (32.0-36.0); MEAN CORPUSCULAR VOLUME 92 fl (80-97); MONOCYTES % (AUTO) 15.2 % (3-13); PLATELET COUNT 193 10^3/uL (150-450); RED BLOOD COUNT 3.64 10^6/uL (3.72-5.28); RED CELL DISTRIBUTION WIDTH 13.9 % (11.5-14.0); SEGMENTED NEUTROPHILS % (AUTO) 62.7 % (42-78); TOTAL CELLS COUNTED % (AUTO) 100 %
--- NOTE | 2020-04-26 11:55 | PDOC DISCHARGE SUMMARY ---
Impression - Admit/DC Date/PCP Admission Date/Primary Care Provider: 04/23/20 15:15 JOHN HOPKINS Discharge Date: 04/26/20 - Discharge Diagnosis (1) UTI (urinary tract infection) Is this a current diagnosis for this admission?: Yes (2) Fever Is this a current diagnosis for this admission?: Yes (3) Dementia Is this a current diagnosis for this admission?: Yes (4) Depression with anxiety Is this a current diagnosis for this admission?: Yes (5) DVT prophylaxis Is this a current diagnosis for this admission?: Yes (6) Hypoxia Is this a current diagnosis for this admission?: Yes - Additional Information Resuscitation Status: Full Code Referrals: LUCIANO RODRIGUEZ FNP-C [Primary Care Provider] - Follow up as needed Prescriptions: Cephalexin Monohydrate [Keflex 500 mg Capsule] 500 mg PO TID 3 Days #9 capsule Albuterol Sulfate [Ventolin Hfa 8 gm Mdi (1 Mdi/ER Disp)] 2 puff IH Q6HP PRN #1 inhaler PRN Reason: Home Medications: Aripiprazole 2 mg PO QHS 10/10/19 Bupropion HCl [Wellbutrin 75 mg Tablet] 75 mg PO DAILY 10/10/19 Dextromethorphan HBr/Quinidine [Nuedexta 20-10 mg Capsule] 1 each PO DAILY 10/10/19 Divalproex Sodium [Depakote Sprinkle] 250 mg PO TID 10/10/19 Paroxetine HCl [Paxil 20 mg Tablet] 20 mg PO DAILY 10/10/19 Risperidone [Risperdal 1 mg Tablet] 1 mg PO Q8HP PRN 10/10/19 Albuterol Sulfate [Ventolin Hfa 8 gm Mdi (1 Mdi/ER Disp)] 2 puff IH Q6HP PRN #1 inhaler 04/26/20 Cephalexin Monohydrate [Keflex 500 mg Capsule] 500 mg PO TID 3 Days #9 capsule 04/26/20 Lorazepam 0.5 mg PO DAILYP PRN #0 04/26/20 History of Present Illiness History of Present Illness: LUCHO BROWN is a 79 year old female with of advanced dementia [baseline AO x1 and confused], who presents to the hospital from [facility] for evaluation of fever no reported change in mental status. Apparently patient became more confused today. She was also noted to be spiking fevers at the alf. Patient is not able to divulge much history during physical encounter. She is alert and oriented to self alone. In the ER, patient was noted to have a positive urinalysis and referred to hospitalist service for admission for possible UTI. ER staff also confirms to me that patient is a full code per report from [facility]. Hospital Course Hospital Course: Patient was admitted to the hospital for fever. Chest x-ray on presentation showed only findings of chronic interstitial lung disease but no pneumonia. Patient had a little bit of encephalopathy likely due to delirium from UTI. Her urinalysis was positive and urine culture grew E. coli which is sensitive to most antibiotics except ampicillin. Blood cultures were negative at 48 hours. COVID-19 test was negative. Patient has been treated with IV antibiotics since presentation and her leukocytosis has normalized from 15.3-9 today. Patient mental status has also improved and she has been alert awake and conversational pleasantly for most of her hospital stay. She will be discharged on Keflex to be taken for 3 more days to complete treatment of UTI. Her fevers have long resolved. She was noted to have some hypoxia but as mentioned before her chest x-ray does show findings that make me believe that patient may have some chronic interstitial lung disease. On ambulation this morning, patient's pulse oximetry remained mostly between 88% to 90% but never dropped below 88% and as such as no qualified for home oxygen. Patient may benefit from a high-res CT scan of the lung to confirm the diagnosis of ILD. She was noted to have some wheezing for which she will be treated with albuterol inhalers. Patient is doing well and ready for discharge. Please ensure follow-up with her primary care provider within 2 weeks. Physical Exam Vital Signs: Temp Pulse Resp BP Pulse Ox 97.9 F 71 16 112/69 97 04/26/20 07:41 04/26/20 09:00 04/26/20 09:00 04/26/20 07:41 04/26/20 09:00 Intake & Output 04/25/20 04/26/20 04/27/20 06:59 06:59 06:59 Intake Total 4107 1320 100 Balance 4107 1320 100 Weight 76.6 kg 84.2 kg General appearance: PRESENT: no acute distress, cooperative Neck exam: ABSENT: JVD Respiratory exam: PRESENT: symmetrical, unlabored, wheezes. ABSENT: accessory muscle use, retraction, tachypnea Cardiovascular exam: PRESENT: RRR, +S1, +S2. ABSENT: tachycardia GI/Abdominal exam: PRESENT: soft. ABSENT: rebound, rigid, tenderness Neurological exam: PRESENT: alert, awake, oriented to person, other - very pleasantly conversational. ABSENT: oriented to place, oriented to time Results Laboratory Results: WBC 9.0 10^3/uL (4.0-10.5) 04/26/20 09:30 RBC 3.64 10^6/uL (3.72-5.28) L 04/26/20 09:30 Hgb 11.2 g/dL (12.0-15.5) L 04/26/20 09:30 Hct 33.6 % (36.0-47.0) L 04/26/20 09:30 MCV 92 fl (80-97) 04/26/20 09:30 MCH 30.9 pg (27.0-33.4) 04/26/20 09:30 MCHC 33.4 g/dL (32.0-36.0) 04/26/20 09:30 RDW 13.9 % (11.5-14.0) 04/26/20 09:30 Plt Count 193 10^3/uL (150-450) 04/26/20 09:30 Lymph % (Auto) 19.9 % (13-45) 04/26/20 09:30 Love % (Auto) 15.2 % (3-13) H 04/26/20 09:30 Eos % (Auto) 1.9 % (0-6) 04/26/20 09:30 Baso % (Auto) 0.3 % (0-2) 04/26/20 09:30 Absolute Neuts (auto) 5.6 10^3/uL (1.7-8.2) 04/26/20 09:30 Absolute Lymphs (auto) 1.8 10^3/uL (0.5-4.7) 04/26/20 09:30 Absolute Monos (auto) 1.4 10^3/uL (0.1-1.4) 04/26/20 09:30 Absolute Eos (auto) 0.2 10^3/uL (0.0-0.6) 04/26/20 09:30 Absolute Basos (auto) 0.0 10^3/uL (0.0-0.2) 04/26/20 09:30 Total Counted 100 04/24/20 06:30 Seg Neutrophils % 62.7 % (42-78) 04/26/20 09:30 Seg Neuts % (Manual) 76 % (42-78) 04/24/20 06:30 Band Neutrophils % 7 % (3-5) H 04/24/20 06:30 Lymphocytes % (Manual) 6 % (13-45) L 04/24/20 06:30 Monocytes % (Manual) 11 % (3-13) 04/24/20 06:30 Eosinophils % (Manual) 0 % (0-6) 04/24/20 06:30 Basophils % (Manual) 0 % (0-2) 04/24/20 06:30 Abs Neuts (Manual) 12.7 10^3/uL (1.7-8.2) H 04/24/20 06:30 Abs Lymphs (Manual) 0.9 10^3/uL (0.5-4.7) 04/24/20 06:30 Abs Monocytes (Manual) 1.7 10^3/uL (0.1-1.4) H 04/24/20 06:30 Absolute Eos (Manual) 0.0 10^3/uL (0.0-0.6) 04/24/20 06:30 Abs Basophils (Manual) 0.0 10^3/uL (0.0-0.2) 04/24/20 06:30 Platelet Comment ADEQUATE 04/24/20 06:30 Polychromasia 1+ 04/24/20 06:30 Anisocytosis 1+ 04/24/20 06:30 PT 14.6 SEC (11.4-15.4) 04/23/20 11:54 INR 1.13 04/23/20 11:54 VBG pH 7.38 (7.30-7.42) 04/23/20 12:30 VBG pCO2 48.6 mmHg (35-63) 04/23/20 12:30 VBG HCO3 28.0 mmol/L (20-32) 04/23/20 12:30 VBG Base Excess 2.1 mmol/L 04/23/20 12:30 Sodium 137.0 mmol/L (137-145) 04/25/20 08:15 Potassium 3.6 mmol/L (3.6-5.0) 04/25/20 08:15 Chloride 109 mmol/L (98-107) H 04/25/20 08:15 Carbon Dioxide 22 mmol/L (22-30) 04/25/20 08:15 Anion Gap 6 (5-19) 04/25/20 08:15 BUN 21 mg/dL (7-20) H 04/25/20 08:15 Creatinine 0.75 mg/dL (0.52-1.25) 04/25/20 08:15 Est GFR ( Amer) > 60 (>60) 04/25/20 08:15 Est GFR (MDRD) Non-Af > 60 (>60) 04/25/20 08:15 Glucose 120 mg/dL (75-110) H 04/25/20 08:15 POC Glucose 83 mg/dL (70-110) 04/23/20 12:26 Lactic Acid 1.0 mmol/L (0.7-2.1) 04/23/20 18:55 Calcium 8.5 mg/dL (8.4-10.2) 04/25/20 08:15 Magnesium 2.1 mg/dL (1.6-2.3) 04/25/20 08:15 Total Bilirubin 0.6 mg/dL (0.2-1.3) 04/25/20 08:15 Direct Bilirubin 0.0 mg/dL (0.0-0.4) 04/25/20 08:15 Neonat Total Bilirubin Not Reportable 04/25/20 08:15 Neonat Direct Bilirubin Not Reportable 04/25/20 08:15 Neonat Indirect Bili Not Reportable 04/25/20 08:15 AST 21 U/L (14-36) 04/25/20 08:15 ALT 10 U/L (<35) 04/25/20 08:15 Alkaline Phosphatase 55 U/L (38-126) 04/25/20 08:15 Total Protein 5.3 g/dL (6.3-8.2) L 04/25/20 08:15 Albumin 2.7 g/dL (3.5-5.0) L 04/25/20 08:15 Urine Color YELLOW 04/23/20 12:35 Urine Appearance SLIGHTLY-CLOUDY 04/23/20 12:35 Urine pH 7.0 (5.0-9.0) 04/23/20 12:35 Ur Specific Bradford 1.013 04/23/20 12:35 Urine Protein 100 mg/dL (NEGATIVE) H 04/23/20 12:35 Urine Glucose (UA) NEGATIVE mg/dL (NEGATIVE) 04/23/20 12:35 Urine Ketones TRACE mg/dL (NEGATIVE) H 04/23/20 12:35 Urine Blood MODERATE (NEGATIVE) H 04/23/20 12:35 Urine Nitrite (Reflex) POSITIVE (NEGATIVE) H 04/23/20 12:35 Urine Bilirubin NEGATIVE (NEGATIVE) 04/23/20 12:35 Urine Urobilinogen 4.0 mg/dL (<2.0) H 04/23/20 12:35 Leukocyte Esterase Rfl MODERATE (NEGATIVE) H 04/23/20 12:35 Urine RBC (Auto) 19 /HPF 04/23/20 12:35 Urine Bacteria (Auto) TRACE /HPF 04/23/20 12:35 Urine WBC (Reflex) 68 /HPF 04/23/20 12:35 Squamous Epi Cells Auto 4 /HPF 04/23/20 12:35 Urine Mucus (Auto) RARE /LPF 04/23/20 12:35 Urine Ascorbic Acid NEGATIVE (NEGATIVE) 04/23/20 12:35 COVID-19 Source Cancelled 04/23/20 15:59 COVID-19 (RAJESH) Cancelled 04/23/20 15:59 SARS-CoV-2 (PCR) NEGATIVE (NEGATIVE) 04/23/20 15:59 Impressions: Chest X-Ray 04/23/20 11:39 IMPRESSION: NO ACUTE RADIOGRAPHIC FINDING IN THE CHEST. Chest X-Ray 04/24/20 00:00 IMPRESSION: NO ACUTE FINDINGS. Plan Time Spent: Less than 30 Minutes Stroke Is this a Stroke Patient?: No Acute Heart Failure - Is this a Heart Failure Patient?: No
[2020-04-26 13:17] VITALS: BP 113/73
== END 2020-04-26 13:18 | DRG 690 ==
LOC: ER 11:27 → EH 15:15 → 4N 18:29
PROVIDERS: ADMIT Internal Medicine; ATTEND Internal Medicine
DX: N39.0 Urinary tract infection, site not specified (principal); G93.40 Encephalopathy, unspecified; B96.20 Unspecified Escherichia coli [E. coli] as the cause of diseases classified elsewhere; J84.89 Other specified interstitial pulmonary diseases; E78.5 Hyperlipidemia, unspecified; F03.90 Unspecified dementia, unspecified severity, without behavioral disturbance, psychotic disturbance, mood disturbance, and anxiety; F41.8 Other specified anxiety disorders; R09.02 Hypoxemia; R50.81 Fever presenting with conditions classified elsewhere; Z90.49 Acquired absence of other specified parts of digestive tract; Z90.710 Acquired absence of both cervix and uterus; Z79.899 Other long term (current) drug therapy; Z20.828 Contact with and (suspected) exposure to other viral communicable diseases
CPT/HCPCS: 36415; 51701; 71045; 80048; 80053; 81001; 82803; 82962; 83605; 83735; 85025; 85610; 87040; 87086; 87088; 87186; 87635; 93005; 93010; 96361; 96365; 99291; C9803; J0690; J0692; J1650; J2543; J3490; J7030; J7040; J7050; J7060

== ENCOUNTER 2020-06-08 20:57 | Inpatient (IN) | payer MEDICARE, MEDICAID ==
[2020-06-08 21:24] LABS: ABSOLUTE LYMPHOCYTES (AUTO) 1.1 10^3/uL (0.5-4.7); ABSOLUTE NEUT (AUTO) 15.2 10^3/uL (1.7-8.2); BASOPHILS % (AUTO) 0.2 % (0-2); HEMATOCRIT 38.3 % (36.0-47.0); HEMOGLOBIN 12.7 g/dL (12.0-15.5); INTERNATIONAL RATION (INR) 1.07; LYMPHOCYTES % (AUTO) 5.9 % (13-45); MEAN CORPUSCULAR HEMOGLOBIN 30.7 pg (27.0-33.4); MEAN CORPUSCULAR HGB CONC 33.3 g/dL (32.0-36.0); MEAN CORPUSCULAR VOLUME 92 fl (80-97); MONOCYTES % (AUTO) 10.7 % (3-13); PLATELET COUNT 215 10^3/uL (150-450); PROTHROMBIN TIME 14.1 SEC (11.4-15.4); RED BLOOD COUNT 4.16 10^6/uL (3.72-5.28); RED CELL DISTRIBUTION WIDTH 13.7 % (11.5-14.0); SEGMENTED NEUTROPHILS % (AUTO) 83.2 % (42-78); TOTAL CELLS COUNTED % (AUTO) 100 %; WHITE BLOOD COUNT 18.3 10^3/uL (4.0-10.5)
[2020-06-08 21:25] LABS: PARTIAL THROMBOPLASTIN TIME 29.6 SEC (23.5-35.8)
--- NOTE | 2020-06-08 21:32 | ER Document Report ---
ED Dizziness/Weakness - General Chief Complaint: Altered Mental Status Stated Complaint: ALTERED MENTAL STATUS Time Seen by Provider: 06/08/20 21:16 Primary Care Provider: LUCIANO RODRIGUEZ FNP-C [Primary Care Provider] - Follow up as needed Mode of Arrival: Medic Information source: Emergency Med Personnel Notes: 79-year-old female arrives by EMS after patient was found and another patient's room and was escorted to her own room. Patient has a history of Alzheimer's disease. She is currently at the [facility] in [place]. Patient is moving her fingers well and moving her feet well and had a initial stroke alert checked by CT done upon arrival. Temperature was 102 rectally and she is currently hypotensive 85 systolic. She has IV in her left arm and was given 500 mL of LR per EMS. Much of this history is via staff through EMS reports. Igor johnson has poor severely poor historian. She is able to tell us her first name and denies any headache or hip pain. She has dry lips and dry tongue but able to stick her tongue out on command. TRAVEL OUTSIDE OF THE [place] IN LAST 30 DAYS: No - HPI Patient complains to provider of: Altered mental status, Weakness Onset: This afternoon Onset/Duration: Sudden, Persistent Quality of pain: No pain Severity: Mild Pain Level: Denies Associated symptoms: Weak all over - Related Data Allergies/Adverse Reactions: No Known Allergies Allergy (Verified 06/08/20 22:22) Past Medical History - General Information source: Emergency Med Personnel Cannot obtain history due to: Dementia - Social History Smoking Status: Unknown if Ever Smoked Cigarette use (# per day): No Chew tobacco use (# tins/day): No Smoking Education Provided: No Frequency of alcohol use: None Drug Abuse: None Lives with: Family Family History: Reviewed & Not Pertinent Patient has suicidal ideation: No Patient has homicidal ideation: No - Past Medical History Cardiac Medical History: Reports: Hx Hypercholesterolemia Renal/ Medical History: Denies: Hx Peritoneal Dialysis Psychiatric Medical History: Reports: Hx Dementia, Hx Depression Past Surgical History: Reports: Hx Appendectomy, Hx Hysterectomy, Hx Kidney (Renal Surgery), Hx Tonsillectomy Review of Systems - Review of Systems Constitutional: See HPI, Weakness EENT: No symptoms reported Cardiovascular: No symptoms reported Respiratory: No symptoms reported Gastrointestinal: No symptoms reported Genitourinary: No symptoms reported Female Genitourinary: No symptoms reported Musculoskeletal: No symptoms reported Skin: No symptoms reported Hematologic/Lymphatic: No symptoms reported Neurological/Psychological: See HPI, Weakness Physical Exam - Vital signs Vitals: Pulse Ox 94 06/08/20 21:11 Interpretation: Hypotensive - HEENT Head: Normocephalic, Atraumatic Eyes: Normal Pupils: PERRL Mouth/Lips: Normal Mucous membranes: Normal Pharynx: Normal Neck: Normal - Respiratory Respiratory status: No respiratory distress Chest status: Nontender Breath sounds: Normal Chest palpation: Normal - Cardiovascular Rhythm: Regular Heart sounds: Normal auscultation Murmur: No - Abdominal Inspection: Normal Distension: No distension Bowel sounds: Normal Tenderness: Nontender Organomegaly: No organomegaly - Rectal Tenderness: No - Genitourinary External exam: Normal - Back Back: Normal - Extremities General upper extremity: Normal inspection General lower extremity: Normal inspection - Neurological Neuro grossly intact: Yes Cognition: Confused Orientation: Disoriented to place, Disoriented to time, Disoriented to events - oriented to person Rapidan Coma Scale Eye Opening: Spontaneous Rapidan Coma Scale Verbal: Confused Rapidan Coma Scale Motor: Obeys Commands Rapidan Coma Scale Total: 14 Speech: Dysarthria Motor strength normal: LUE, RUE, LLE, RLE Sensory: Normal - Psychological Associated symptoms: Flat affect - Skin Skin Temperature: Cool Skin Moisture: Dry Course - Vital Signs Vital signs: Temp Pulse Resp BP Pulse Ox 98.4 F 13 94/51 L 93 06/09/20 00:00 06/09/20 00:00 06/08/20 23:53 06/09/20 00:00 - Laboratory Result Diagrams: 06/08/20 21:06 06/08/20 21:06 Laboratory results interpreted by me: 06/08/20 06/08/20 06/08/20 21:06 21:06 21:40 WBC 18.3 H Lymph % (Auto) 5.9 L Absolute Neuts (auto) 15.2 H Absolute Monos (auto) 2.0 H Seg Neutrophils % 83.2 H BUN 23 H Lactic Acid 2.5 H Urine Protein Urine Ketones Urine Blood Urine Nitrite Urine Urobilinogen Ur Leukocyte Esterase 06/08/20 21:40 WBC Lymph % (Auto) Absolute Neuts (auto) Absolute Monos (auto) Seg Neutrophils % BUN Lactic Acid Urine Protein 100 H Urine Ketones TRACE H Urine Blood MODERATE H Urine Nitrite POSITIVE H Urine Urobilinogen 4.0 H Ur Leukocyte Esterase LARGE H - Diagnostic Test Radiology reviewed: Reports reviewed - EKG Interpretation by Me EKG shows normal: Sinus rhythm Rate: Normal Rhythm: NSR - [address] elevation no ST depression no T wave elevation no T wave depression and axis within normal limits Critical Care Note - Critical Care Note Comments: Dr Salvador Rodgers called at 0100 and he advises admission telemetry bed. Discharge - Discharge Clinical Impression: UTI (urinary tract infection) Qualifiers: Urinary tract infection type: acute cystitis Hematuria presence: without hematuria Qualified Code(s): N30.00 - Acute cystitis without hematuria Sepsis Qualifiers: Sepsis type: sepsis due to unspecified organism Sepsis acute organ dysfunction status: unspecified Qualified Code(s): A41.9 - Sepsis, unspecified organism Dementia Qualifiers: Dementia type: Alzheimer's disease Alzheimer's disease onset: unspecified onset Dementia behavioral disturbance: with behavioral disturbance Qualified Code(s): G30.9 - Alzheimer's disease, unspecified Hypotension Qualifiers: Hypotension type: unspecified hypotension type Qualified Code(s): I95.9 - Hypotension, unspecified Disposition: ADMITTED INPATIENT Admitting Provider: Ana Maria (Hospitalist) Unit Admitted: Telemetry Referrals: LUCIANO RODRIGUEZ FNP-C [Primary Care Provider] - Follow up as needed
[2020-06-08] MEDS ORDERED: ACETAMINOPHEN 650 MG SUPP.RECT PR ONE (21:38)
[2020-06-08] MEDS ORDERED: CEFTRIAXONE INJ 1000 MG VIAL IV ONE (21:39)
[2020-06-08] MEDS ORDERED: VANCOMYCIN HCL INJ 1000 MG VIAL IV ONE (21:39)
[2020-06-08 21:40] LABS: ALBUMIN 3.8 g/dL (3.5-5.0); ALKALINE PHOSPHATASE 56 U/L (38-126); ANION GAP 9 (5-19); ASPARTATE AMINO TRANSFERASE 23 U/L (14-36); BILIRUBIN,TOTAL 0.6 mg/dL (0.2-1.3); BLOOD UREA NITROGEN 23 mg/dL (7-20); CALCIUM 9.2 mg/dL (8.4-10.2); CARBON DIOXIDE 27 mmol/L (22-30); CHLORIDE 103 mmol/L (98-107); CREATINE KINASE 84 U/L (30-135); GLUCOSE 108 mg/dL (75-110); POTASSIUM 4.1 mmol/L (3.6-5.0); TOTAL PROTEIN 6.7 g/dL (6.3-8.2)
[2020-06-08 21:49] LABS: CREATINE KINASE MB 0.93 ng/mL (<4.55)
[2020-06-08 21:53] LABS: TROPONIN I < 0.012 ng/mL
--- NOTE | 2020-06-08 21:53 | RADIOLOGY REPORT (SQ) ---
CT BRAIN AND CERVICAL SPINE HISTORY: Trauma. COMPARISON: None. TECHNIQUE: CT scan of the brain and cervical spine was performed without IV contrast. This exam was performed according to our departmental dose-optimization program, which includes automated exposure control, adjustment of the mA and/or kV according to patient size and/or use of iterative reconstruction technique. FINDINGS: BRAIN: There are scattered areas of hypoattenuation within the periventricular white matter, which likely represent chronic microvascular ischemia. No evidence of acute infarction, intracranial hemorrhage, extra-axial fluid collection, or midline shift. No air-fluid levels are seen in the paranasal sinuses to suggest acute sinusitis. No depressed skull fracture. CERVICAL SPINE: No acute cervical fracture or prevertebral soft tissue swelling. There is straightening of the normal cervical lordosis, which may be due to cervical collar, muscle spasm, or patient positioning. There is mild multilevel degenerative disc disease as well as facet DJD throughout the cervical spine. There are multilevel disc bulges but without advanced canal stenosis identified. IMPRESSION: 1. No acute intracranial hemorrhage. 2. No acute fracture or subluxation of the cervical spine.
[2020-06-08] MEDS: NORMAL SALINE 1000 ML 1,000 ML IV PRN ×2 (22:00→23:25)
--- NOTE | 2020-06-08 22:12 | RADIOLOGY REPORT (SQ) ---
EXAM DESCRIPTION: XR CHEST 1 VIEW COMPLETED DATE/TME: 06/08/2020 21:11 CLINICAL HISTORY: 79 years, Female, FALL COMPARISON: 04/24/2020 chest NUMBER OF VIEWS: 1 TECHNIQUE: Portable chest LIMITATIONS: None. FINDINGS: The heart size is normal. Osteopenia. No pneumothorax. Subsegmental atelectasis in the left lung base. Lungs are otherwise clear IMPRESSION: No acute cardiopulmonary process copyright 2010 [employer]- All Rights Reserved
[2020-06-08 22:50] LABS: APPEARANCE,URINE CLOUDY; BILIRUBIN,URINE NEGATIVE (NEGATIVE); COLOR,URINE YELLOW; GLUCOSE, URINE NEGATIVE (NEGATIVE); KETONES,URINE TRACE mg/dL (NEGATIVE); LEUKOCYTE ESTERASE,URINE LARGE (NEGATIVE); NITRITE,URINE POSITIVE (NEGATIVE); PROTEIN,URINE 100 mg/dL (NEGATIVE); URINE SPECIFIC GRAVITY 1.016
[2020-06-08] MEDS ORDERED: RINGERS SOLUTION,LACTATED 1,000 ML IV ONE (23:06)
[2020-06-09] MEDS ORDERED: MAGNESIUM HYDROXIDE SUSP 30 ML UDCUP PO PRN ×2 (02:01→16:49)
[2020-06-09] MEDS ORDERED: ACETAMINOPHEN 650 MG SUPP.RECT PR PRN (02:01)
[2020-06-09] MEDS ORDERED: ACETAMINOPHEN 325 MG TABLET PO PRN (02:01)
[2020-06-09] MEDS ORDERED: GUAIFENESIN SYRP 200 MG/10 ML UDC PO PRN (02:06)
[2020-06-09] MEDS ORDERED: PROMETHAZINE HCL INJ 25 MG/1 ML VIAL IV PRN (02:06)
[2020-06-09] MEDS ORDERED: MAG HYDROX/AL HYDROX/SIMETH SUSP 30 ML UDCUP PO PRN (02:06)
[2020-06-09] MEDS ORDERED: LORAZEPAM INJ 2 MG/1 ML VIAL IV PRN (02:06)
[2020-06-09] MEDS: RINGERS SOLUTION,LACTATED 1,000 ML IV PRN ×2 (02:47→09:08)
[2020-06-09] MEDS ORDERED: NORMAL SALINE 1000 ML 1,000 ML IV ONE (05:30)
--- NOTE | 2020-06-09 06:13 | PDOC H&P ---
History of Present Illness Admission Date/PCP: 06/09/20 01:28 JOHN HOPKINS Patient complains of: Increased confusion History of Present Illness: LUCHO BROWN is a 79 year old female who presented to the emergency room with an acutely increased level of confusion. The patient was noted by her care staff at the [facility] to be acutely more confused than usual and she was subsequently sent to the hospital for further evaluation in the emergency room. Patient has severe dementia and is unable to contribute to her medical care. In the emergency room the patient was found to have a temperature 102 F and was noted to be hypotensive with a systolic blood pressure of 85. Her temperature was treated with Tylenol and her blood pressure responded well to a fluid bolus. She was noted to have significant pyuria with a positive nitrite and was therefore initiated on antibiotic therapy by the emergency room provider before he called the hospitalist service for admission. Patient was subsequently admitted to the hospital for further evaluation treatment. Past Medical History Past Medical History: Due to the patient's severe dementia all information for past medical history, surgical history, social history and family history is obtained from the best available reliable source. Cardiac Medical History: Reports: Hyperlipidema, Hypertension Pulmonary Medical History: Reports: Chronic Obstructive Pulmonary Disease (COPD) Denies: Respiratory Failure EENT Medical History: Denies: Eyes - Glaucoma, Ears - Hearing aids Neurological Medical History: Denies: Ischemic CVA, Seizures Endocrine Medical History: Denies: Diabetes Mellitus Type 1, Diabetes Mellitus Type 2, Hyperthyroidism, Hypothyroidism Renal/ Medical History: Denies: Chronic Kidney Disease, Nephrolithiasis Malignancy Medical History: Reports: None GI Medical History: Denies: Cirrhosis, Hepatitis Musculoskeltal Medical History: Denies: Fibromyalgia, Gout Skin Medical History: Denies: Eczema, Psoriasis Psychiatric Medical History: Reports: Dementia, Depression Denies: Alcohol Dependency, Substance Abuse, Tobacco Dependency Traumatic Medical History: Reports: None Hematology: Denies: Anemia, Bleeding Tendencies Infectious Medical History: Reports: None Past Surgical History Past Surgical History: Due to the patient's severe dementia all information for past medical history, surgical history, social history and family history is obtained from the best available reliable source. Past Surgical History: Reports: Appendectomy, Hysterectomy, Tonsillectomy Social History Information Source: [facility] Records Lives with: Other - The [facility] Smoking Status: Unknown if Ever Smoked Electronic Cigarette use?: No Frequency of Alcohol Use: None Hx Recreational Drug Use: No Drugs: None Hx Prescription Drug Abuse: No Past Social History Note: Due to the patient's severe dementia all information for past medical history, surgical history, social history and family history is obtained from the best available reliable source. - Advance Directive Resuscitation Status: Full Code Surrogate healthcare decision maker:: Xenia Delaney Family History Family History: Other - No family history is available Family History: Due to the patient's severe dementia all information for past medical history, surgical history, social history and family history is obtained from the best available reliable source. Parental Family History Reviewed: No Children Family History Reviewed: No Sibling(s) Family History Reviewed.: No Medication/Allergy Home Medications: Aripiprazole 2 mg PO QHS 10/10/19 Bupropion HCl [Wellbutrin 75 mg Tablet] 75 mg PO DAILY 10/10/19 Dextromethorphan HBr/Quinidine [Nuedexta 20-10 mg Capsule] 1 each PO DAILY 10/10/19 Divalproex Sodium [Depakote Sprinkle] 250 mg PO TID 10/10/19 Paroxetine HCl [Paxil 20 mg Tablet] 20 mg PO DAILY 10/10/19 Risperidone [Risperdal 1 mg Tablet] 1 mg PO Q8HP PRN 10/10/19 Albuterol Sulfate [Ventolin Hfa 8 gm Mdi (1 Mdi/ER Disp)] 2 puff IH Q6HP PRN #1 inhaler 04/26/20 Cephalexin Monohydrate [Keflex 500 mg Capsule] 500 mg PO TID 3 Days #9 capsule 04/26/20 Lorazepam 0.5 mg PO DAILYP PRN #0 04/26/20 Allergies/Adverse Reactions: No Known Allergies Allergy (Verified 06/08/20 22:22) Review of Systems ROS unobtainable: Due to mental status - Severe dementia Physical Exam Vital Signs: Temp Pulse Resp BP Pulse Ox 98.4 F 13 94/51 L 93 06/09/20 00:00 06/09/20 00:00 06/08/20 23:53 06/09/20 00:00 Intake & Output 06/07/20 06/08/20 06/09/20 23:59 23:59 23:59 Intake Total 1000 Balance 1000 Weight 77.7 kg General appearance: PRESENT: no acute distress, cooperative Head exam: PRESENT: atraumatic, normocephalic Eye exam: PRESENT: conjunctiva pink. ABSENT: conjunctival injection, scleral icterus Ear exam: PRESENT: normal external ear exam. ABSENT: bleeding, drainage Mouth exam: PRESENT: dry mucosa, neck supple Neck exam: ABSENT: thyromegaly, tracheal deviation Respiratory exam: PRESENT: clear to auscultation coleman, symmetrical, unlabored Cardiovascular exam: PRESENT: RRR. ABSENT: clicks, gallop, rubs Pulses: PRESENT: normal radial pulses, normal dorsalis pedis pul Vascular exam: PRESENT: normal capillary refill. ABSENT: pallor GI/Abdominal exam: PRESENT: normal bowel sounds, soft Rectal exam: PRESENT: deferred Extremities exam: ABSENT: joint swelling, pedal edema Musculoskeletal exam: ABSENT: deformity, dislocation Neurological exam: PRESENT: alert, awake, oriented to person, CN II-XII grossly intact. ABSENT: oriented to place, oriented to time, oriented to situation, motor sensory deficit Psychiatric exam: PRESENT: appropriate affect, normal mood, other - Pleasant but confused Skin exam: PRESENT: dry, intact, warm. ABSENT: jaundice, rash, urticaria Results Laboratory Results: 06/08/20 21:06 06/08/20 21:06 06/08/20 06/08/20 06/08/20 21:06 21:06 21:40 WBC 18.3 H RBC 4.16 Hgb 12.7 Hct 38.3 MCV 92 MCH 30.7 MCHC 33.3 RDW 13.7 Plt Count 215 Seg Neutrophils % 83.2 H Sodium 138.8 Potassium 4.1 Chloride 103 Carbon Dioxide 27 Anion Gap 9 BUN 23 H Creatinine 0.86 Est GFR ( Amer) > 60 Glucose 108 Lactic Acid 2.5 H Calcium 9.2 Total Bilirubin 0.6 AST 23 Alkaline Phosphatase 56 Total Protein 6.7 Albumin 3.8 Urine Color Urine Appearance Urine pH Ur Specific [place] Urine Protein Urine Glucose (UA) Urine Ketones Urine Blood Urine Nitrite Ur Leukocyte Esterase Urine WBC (Auto) Urine RBC (Auto) 06/08/20 21:40 WBC RBC Hgb Hct MCV MCH MCHC RDW Plt Count Seg Neutrophils % Sodium Potassium Chloride Carbon Dioxide Anion Gap BUN Creatinine Est GFR ( Amer) Glucose Lactic Acid Calcium Total Bilirubin AST Alkaline Phosphatase Total Protein Albumin Urine Color YELLOW Urine Appearance CLOUDY Urine pH 6.0 Ur Specific [place] 1.016 Urine Protein 100 H Urine Glucose (UA) NEGATIVE Urine Ketones TRACE H Urine Blood MODERATE H Urine Nitrite POSITIVE H Ur Leukocyte Esterase LARGE H Urine WBC (Auto) >182 Urine RBC (Auto) 21 06/08/20 06/08/20 21:06 21:06 Creatine Kinase 84 CK-MB (CK-2) 0.93 Troponin I < 0.012 Impressions: Cervical Spine CT 06/08/20 00:00 IMPRESSION: 1. No acute intracranial hemorrhage. 2. No acute fracture or subluxation of the cervical spine. Head CT 06/08/20 00:00 IMPRESSION: 1. No acute intracranial hemorrhage. 2. No acute fracture or subluxation of the cervical spine. Chest X-Ray 06/08/20 21:11 IMPRESSION: No acute cardiopulmonary process copyright 2011 [employer]- All Rights Reserved Assessment and Plan - Diagnosis (1) UTI (urinary tract infection) Qualifiers: Urinary tract infection type: site unspecified Hematuria presence: without hematuria Qualified Code(s): N39.0 - Urinary tract infection, site not specified Is this a current diagnosis for this admission?: Yes (2) Sepsis Qualifiers: Sepsis type: sepsis due to unspecified organism Sepsis acute organ dysfunction status: with acute organ dysfunction Severe sepsis acute organ dysfunction type: encephalopathy Severe sepsis shock status: with septic shock Qualified Code(s): A41.9 - Sepsis, unspecified organism; R65.21 - Severe sepsis with septic shock; G93.40 - Encephalopathy, unspecified Is this a current diagnosis for this admission?: Yes (3) Encephalopathy due to infection Is this a current diagnosis for this admission?: Yes (4) Fever Qualifiers: Fever type: due to other condition Qualified Code(s): R50.81 - Fever presenting with conditions classified elsewhere Is this a current diagnosis for this admission?: Yes (5) Dementia Qualifiers: Dementia type: Alzheimer's disease Alzheimer's disease onset: unspecified onset Dementia behavioral disturbance: with behavioral disturbance Qualified Code(s): G30.9 - Alzheimer's disease, unspecified; F02.81 - Dementia in other diseases classified elsewhere with behavioral disturbance Is this a current diagnosis for this admission?: Yes - Plan Summary Summary: Patient will be admitted to the medical floor where she received routine supportive and symptomatic cares. She will be treated with IV fluids utilizing lactated D5LR at 167 mL/h initially. She will receive IV Rocephin. Serial lactic acids will be obtained. She will receive Ativan 1 mg IV every 4 hours as needed for restlessness or anxiety. She will be placed on a cardiac diet. CBCs, metabolic profiles and additional laboratory and/or radiographic evaluations will be obtained as needed. Patient's fever will be treated with Tylenol orally or via suppository as required. - Time Time Spent with patient: Less than 15 minutes Medications reviewed and adjusted accordingly: Yes Anticipated Discharge Disposition: [facility] Anticipated Discharge Timeframe: Undetermined - Inpatient Certification Based on my medical assessment, after consideration of the patient's comorbidities, presenting symptoms, or acuity I expect that the services needed warrant INPATIENT care.: Yes I certify that my determination is in accordance with my understanding of Medicare's requirements for reasonable and necessary INPATIENT services [42 CFR 412.3e].: Yes Medical Necessity: Need Close Monitoring Due to Risk of Patient Decompensation, Need For IV Fluids, Need for IV Antibiotics, Risk of Complication if Not Cared For in Hospital
[2020-06-09] MEDS: PANTOPRAZOLE SODIUM 40 MG TABLET.DR PO SCH (06:27)
--- NOTE | 2020-06-09 08:35 | EKG REPORT ---
SEVERITY:- ABNORMAL ECG - SINUS RHYTHM LOW VOLTAGE IN FRONTAL LEADS ABNORMAL T, CONSIDER ISCHEMIA, ANT-LAT LEADS : Confirmed by: Jonathan Hancock 09-Jun-2020 08:35:07
[2020-06-09] MEDS ORDERED: RISPERIDONE 1 MG TABLET PO PRN (16:49)
--- NOTE | 2020-06-09 16:49 | PDOC PROGRESS REPORT ---
Subjective Progress Note for:: 06/09/20 Subjective:: The patient is restless and confused. No doubt from the adverse effects of sepsis with underlying dementia. Reason For Visit: UTI (URINARY TRACT INFECTION), UROSEPSIS Physical Exam Vital Signs: Temp Pulse Resp BP Pulse Ox 98.7 F 78 20 124/64 94 06/09/20 13:10 06/09/20 14:00 06/09/20 13:10 06/09/20 13:10 06/09/20 12:16 Intake & Output 06/08/20 06/09/20 06/10/20 06:59 06:59 06:59 Intake Total 4000 1240 Output Total 1600 Balance 4000 -360 Weight 77.7 kg General appearance: PRESENT: cooperative, mild distress, well-developed Head exam: PRESENT: atraumatic, normocephalic Ear exam: PRESENT: normal external ear exam. ABSENT: bleeding, drainage Mouth exam: PRESENT: moist, tongue midline Respiratory exam: PRESENT: clear to auscultation coleman, symmetrical, unlabored. ABSENT: crackles, prolonged expiratory phas, rales, rhonchi, tachypnea, wheezes Cardiovascular exam: PRESENT: RRR, +S1, +S2. ABSENT: bradycardia, diastolic murmur, irregular rhythm, systolic murmur, tachycardia GI/Abdominal exam: PRESENT: soft. ABSENT: distended, guarding, tenderness Rectal exam: PRESENT: deferred Gentrourinary exam: PRESENT: indwelling catheter Extremities exam: ABSENT: calf tenderness, joint swelling, pedal edema Musculoskeletal exam: PRESENT: normal inspection. ABSENT: deformity, dislocation Neurological exam: PRESENT: alert, altered, awake, oriented to person, CN II-XII grossly intact. ABSENT: oriented to place, oriented to situation Psychiatric exam: PRESENT: appropriate affect. ABSENT: agitated, anxious Focused psych exam: PRESENT: restlessness. ABSENT: delusional, paranoid Skin exam: PRESENT: dry, normal color, warm. ABSENT: erythema, rash Results Laboratory Results: 06/08/20 21:06 06/08/20 21:06 06/08/20 06/08/20 06/08/20 21:06 21:06 21:40 WBC 18.3 H RBC 4.16 Hgb 12.7 Hct 38.3 MCV 92 MCH 30.7 MCHC 33.3 RDW 13.7 Plt Count 215 Seg Neutrophils % 83.2 H Sodium 138.8 Potassium 4.1 Chloride 103 Carbon Dioxide 27 Anion Gap 9 BUN 23 H Creatinine 0.86 Est GFR ( Amer) > 60 Glucose 108 Lactic Acid 2.5 H Calcium 9.2 Total Bilirubin 0.6 AST 23 Alkaline Phosphatase 56 Total Protein 6.7 Albumin 3.8 Urine Color Urine Appearance Urine pH Ur Specific [place] Urine Protein Urine Glucose (UA) Urine Ketones Urine Blood Urine Nitrite Ur Leukocyte Esterase Urine WBC (Auto) Urine RBC (Auto) 06/08/20 06/09/20 06/09/20 21:40 02:14 05:29 WBC RBC Hgb Hct MCV MCH MCHC RDW Plt Count Seg Neutrophils % Sodium Potassium Chloride Carbon Dioxide Anion Gap BUN Creatinine Est GFR ( Amer) Glucose Lactic Acid 1.4 3.3 H Calcium Total Bilirubin AST Alkaline Phosphatase Total Protein Albumin Urine Color YELLOW Urine Appearance CLOUDY Urine pH 6.0 Ur Specific [place] 1.016 Urine Protein 100 H Urine Glucose (UA) NEGATIVE Urine Ketones TRACE H Urine Blood MODERATE H Urine Nitrite POSITIVE H Ur Leukocyte Esterase LARGE H Urine WBC (Auto) >182 Urine RBC (Auto) 21 06/09/20 09:27 WBC RBC Hgb Hct MCV MCH MCHC RDW Plt Count Seg Neutrophils % Sodium Potassium Chloride Carbon Dioxide Anion Gap BUN Creatinine Est GFR ( Amer) Glucose Lactic Acid 1.4 Calcium Total Bilirubin AST Alkaline Phosphatase Total Protein Albumin Urine Color Urine Appearance Urine pH Ur Specific [place] Urine Protein Urine Glucose (UA) Urine Ketones Urine Blood Urine Nitrite Ur Leukocyte Esterase Urine WBC (Auto) Urine RBC (Auto) 06/08/20 06/08/20 21:06 21:06 Creatine Kinase 84 CK-MB (CK-2) 0.93 Troponin I < 0.012 Impressions: Cervical Spine CT 06/08/20 00:00 IMPRESSION: 1. No acute intracranial hemorrhage. 2. No acute fracture or subluxation of the cervical spine. Head CT 06/08/20 00:00 IMPRESSION: 1. No acute intracranial hemorrhage. 2. No acute fracture or subluxation of the cervical spine. Chest X-Ray 06/08/20 21:11 IMPRESSION: No acute cardiopulmonary process copyright 2011 [employer]- All Rights Reserved Assessment and Plan - Diagnosis (1) Sepsis Qualifiers: Sepsis type: sepsis due to unspecified organism Sepsis acute organ dysfunction status: with acute organ dysfunction Severe sepsis acute organ dysfunction type: encephalopathy Severe sepsis shock status: with septic shock Qualified Code(s): A41.9 - Sepsis, unspecified organism; R65.21 - Severe sepsis with septic shock; G93.40 - Encephalopathy, unspecified Is this a current diagnosis for this admission?: Yes Plan: Continue antibiotics and IV fluids. Await culture results. Continue to monitor vital signs. (2) UTI (urinary tract infection) Qualifiers: Urinary tract infection type: site unspecified Hematuria presence: without hematuria Qualified Code(s): N39.0 - Urinary tract infection, site not specifi ed Is this a current diagnosis for this admission?: Yes Plan: Continue ceftriaxone until culture results available (3) Encephalopathy due to infection Is this a current diagnosis for this admission?: Yes Plan: The patient already has underlying dementia. The sepsis has exacerbated this. It may be difficult to determine her baseline but will monitor closely. Continue medications for dementia. (4) Fever Qualifiers: Fever type: due to other condition Qualified Code(s): R50.81 - Fever presenting with conditions classified elsewhere Is this a current diagnosis for this admission?: Yes Plan: Secondary to infection. Monitor vital signs. Supportive care and symptom treatment. (5) Leukocytosis Qualifiers: Leukocytosis type: unspecified Qualified Code(s): D72.829 - Elevated white blood cell count, unspecified Is this a current diagnosis for this admission?: Yes Plan: Increased neutrophils secondary to infection. White blood cell count should improve with antibiotic therapy. (6) Dementia Qualifiers: Dementia type: Alzheimer's disease Alzheimer's disease onset: unspecified onset Dementia behavioral disturbance: with behavioral disturbance Qualified Code(s): G30.9 - Alzheimer's disease, unspecified; F02.81 - Dementia in other diseases classified elsewhere with behavioral disturbance Is this a current diagnosis for this admission?: Yes Plan: We will continue her Wellbutrin, Depakote, Paxil and Risperdal. Clearly decompe nsated due to infection. Will return to the [facility] at discharge. (7) Lactic acidemia Is this a current diagnosis for this admission?: Yes Plan: Corrected with IV fluids - Plan Summary Summary: Patient will be admitted to the medical floor where she received routine supportive and symptomatic cares. She will be treated with IV fluids utilizing lactated D5LR at 167 mL/h initially. She will receive IV Rocephin. Serial lactic acids will be obtained. She will receive Ativan 1 mg IV every 4 hours as needed for restlessness or anxiety. She will be placed on a cardiac diet. CBCs, metabolic profiles and additional laboratory and/or radiographic evaluations will be obtained as needed. Patient's fever will be treated with Tylenol orally or via suppository as required. - Time Time Spent with patient: 15-24 minutes Medications reviewed and adjusted accordingly: Yes Anticipated Discharge Disposition: [facility] Care Facility Anticipated Discharge Timeframe: within 72 hours
[2020-06-09] MEDS: CEFTRIAXONE 1 GM/D5W RTU 1 GM/50 ML RTUPB IV SCH (21:14)
[2020-06-09] MEDS: ARIPIPRAZOLE 2 MG TABLET PO SCH (21:14)
[2020-06-09] MEDS: LORAZEPAM 0.5 MG TABLET PO SCH (21:14)
[2020-06-09] MEDS: DIVALPROEX SODIUM 125 MG CAP.SPRINK PO SCH (21:15)
[2020-06-10] MEDS: DIVALPROEX SODIUM 125 MG CAP.SPRINK PO SCH ×3 (06:21→21:45)
[2020-06-10] MEDS: PANTOPRAZOLE SODIUM 40 MG TABLET.DR PO SCH (06:21)
[2020-06-10 06:39] LABS: ABSOLUTE BASOPHILS # (AUTO) 0.1 10^3/uL (0.0-0.2); ABSOLUTE LYMPHOCYTES (AUTO) 2.6 10^3/uL (0.5-4.7); ABSOLUTE MONOCYTES (AUTO) 2.8 10^3/uL (0.1-1.4); ABSOLUTE NEUT (AUTO) 13.9 10^3/uL (1.7-8.2); BASOPHILS % (AUTO) 0.5 % (0-2); EOSINOPHILS % (AUTO) 0.2 % (0-6); HEMATOCRIT 33.7 % (36.0-47.0); HEMOGLOBIN 11.2 g/dL (12.0-15.5); LYMPHOCYTES % (AUTO) 13.5 % (13-45); MEAN CORPUSCULAR HEMOGLOBIN 30.6 pg (27.0-33.4); MEAN CORPUSCULAR HGB CONC 33.3 g/dL (32.0-36.0); MEAN CORPUSCULAR VOLUME 92 fl (80-97); MONOCYTES % (AUTO) 14.3 % (3-13); PLATELET COUNT 164 10^3/uL (150-450); RED BLOOD COUNT 3.67 10^6/uL (3.72-5.28); RED CELL DISTRIBUTION WIDTH 13.6 % (11.5-14.0); SEGMENTED NEUTROPHILS % (AUTO) 71.5 % (42-78); TOTAL CELLS COUNTED % (AUTO) 100 %; WHITE BLOOD COUNT 19.4 10^3/uL (4.0-10.5)
[2020-06-10 06:59] LABS: ALBUMIN 2.8 g/dL (3.5-5.0); ALKALINE PHOSPHATASE 53 U/L (38-126); ANION GAP 5 (5-19); ASPARTATE AMINO TRANSFERASE 28 U/L (14-36); BILIRUBIN,TOTAL 0.5 mg/dL (0.2-1.3); BLOOD UREA NITROGEN 13 mg/dL (7-20); CALCIUM 8.5 mg/dL (8.4-10.2); CARBON DIOXIDE 24 mmol/L (22-30); CHLORIDE 109 mmol/L (98-107); GLUCOSE 87 mg/dL (75-110); POTASSIUM 3.4 mmol/L (3.6-5.0); TOTAL PROTEIN 5.7 g/dL (6.3-8.2)
[2020-06-10] MEDS: RINGERS SOLUTION,LACTATED 1,000 ML IV PRN ×3 (09:23→21:49)
[2020-06-10] MEDS: PAROXETINE HCL 20 MG TABLET PO SCH (10:40)
[2020-06-10] MEDS: BUPROPION HCL 75 MG TABLET PO SCH (10:40)
[2020-06-10] MEDS: LORAZEPAM 0.5 MG TABLET PO SCH ×2 (10:40→21:49)
--- NOTE | 2020-06-10 13:53 | PDOC PROGRESS REPORT ---
Subjective Progress Note for:: 06/10/20 Subjective:: The patient is requiring a sitter but seems to be feeling better. She is eating lunch. Because she is edentulous her diet needs to be changed. Reason For Visit: UTI (URINARY TRACT INFECTION), UROSEPSIS Physical Exam Vital Signs: Temp Pulse Resp BP Pulse Ox 98.2 F 77 16 121/67 94 06/10/20 11:20 06/10/20 11:47 06/10/20 11:47 06/10/20 11:20 06/10/20 12:00 Intake & Output 06/09/20 06/10/20 06/11/20 06:59 06:59 06:59 Intake Total 4000 2750 Output Total 3005 400 Balance 4000 -255 -400 Weight 77.7 kg 77.9 kg General appearance: PRESENT: no acute distress, cooperative, well-developed Head exam: PRESENT: atraumatic, normocephalic Mouth exam: PRESENT: moist, tongue midline Teeth exam: PRESENT: edentulous Neck exam: ABSENT: carotid bruit, JVD, lymphadenopathy Respiratory exam: PRESENT: clear to auscultation co[place], symmetrical, unlabored. ABSENT: rales, rhonchi, tachypnea, wheezes Cardiovascular exam: PRESENT: RRR, +S1, +S2. ABSENT: bradycardia, diastolic murmur, irregular rhythm, systolic murmur, tachycardia GI/Abdominal exam: PRESENT: normal bowel sounds, soft. ABSENT: distended, tenderness Rectal exam: PRESENT: deferred Gentrourinary exam: PRESENT: indwelling catheter Extremities exam: ABSENT: pedal edema Musculoskeletal exam: PRESENT: full ROM, normal inspection. ABSENT: deformity, dislocation Neurological exam: PRESENT: alert, awake, oriented to person. ABSENT: oriented to place Psychiatric exam: PRESENT: appropriate affect. ABSENT: agitated, anxious Focused psych exam: ABSENT: delusional, paranoid, restlessness Skin exam: PRESENT: dry, normal color, warm. ABSENT: rash Results Laboratory Results: 06/10/20 05:52 06/10/20 05:52 06/10/20 06/10/20 05:52 05:52 WBC 19.4 H RBC 3.67 L Hgb 11.2 L Hct 33.7 L MCV 92 MCH 30.6 MCHC 33.3 RDW 13.6 Plt Count 164 Seg Neutrophils % 71.5 Sodium 138.4 Potassium 3.4 L Chloride 109 H Carbon Dioxide 24 Anion Gap 5 BUN 13 Creatinine 0.65 Est GFR ( Amer) > 60 Glucose 87 Calcium 8.5 Total Bilirubin 0.5 AST 28 Alkaline Phosphatase 53 Total Protein 5.7 L Albumin 2.8 L 06/08/20 21:40 Clean Catch Midstream Urine Culture - Final Escherichia Coli 06/08/20 06/08/20 21:06 21:06 Creatine Kinase 84 CK-MB (CK-2) 0.93 Troponin I < 0.012 Impressions: Cervical Spine CT 06/08/20 00:00 IMPRESSION: 1. No acute intracranial hemorrhage. 2. No acute fracture or subluxation of the cervical spine. Head CT 06/08/20 00:00 IMPRESSION: 1. No acute intracranial hemorrhage. 2. No acute fracture or subluxation of the cervical spine. Chest X-Ray 06/08/20 21:11 IMPRESSION: No acute cardiopulmonary process copyright 2011 [employer]- All Rights Reserved Assessment and Plan - Diagnosis (1) Sepsis Qualifiers: Sepsis type: sepsis due to unspecified organism Sepsis acute organ dysfunction status: with acute organ dysfunction Severe sepsis acute organ dysfunction type: encephalopathy Severe sepsis shock status: with septic shock Qualified Code(s): A41.9 - Sepsis, unspecified organism; R65.21 - Severe sepsis with septic shock; G93.40 - Encephalopathy, unspecified Is this a current diagnosis for this admission?: Yes Plan: Sepsis has resolved with antibiotics and fluids. (2) UTI (urinary tract infection) Qualifiers: Urinary tract infection type: site unspecified Hematuria presence: without hematuria Qualified Code(s): N39.0 - Urinary tract infection, site not specified Is this a current diagnosis for this admission?: Yes Plan: E. coli identified on urine culture. Continue antibiotics as it is fairly sensitive organism. (3) Encephalopathy due to infection Is this a current diagnosis for this admission?: Yes Plan: The patient is in better spirits today. She does not seem agitated. This may be her baseline. We will continue current treatment regimen to see if her mental status improves further. (4) Fever Qualifiers: Fever type: due to other condition Qualified Code(s): R50.81 - Fever presenting with conditions classified elsewhere Is this a current diagnosis for this admission?: Yes Plan: Resolved with fluids and antibiotics (5) Leukocytosis Qualifiers: Leukocytosis type: unspecified Qualified Code(s): D72.829 - Elevated white blood cell count, unspecified Is this a current diagnosis for this admission?: Yes Plan: The patient's white blood cell count is actually slightly higher than yesterday. Hopefully it is just a question of time before the antibiotics take full eff ect. (6) Dementia Qualifiers: Dementia type: Alzheimer's disease Alzheimer's disease onset: unspecified onset Dementia behavioral disturbance: with behavioral disturbance Qualified Code(s): G30.9 - Alzheimer's disease, unspecified; F02.81 - Dementia in other diseases classified elsewhere with behavioral disturbance Is this a current diagnosis for this admission?: Yes Plan: This makes it difficult to appreciate a true baseline. She is definitely better today. Will continue her current regimen and monitor for improvement. (7) Lactic acidemia Is this a current diagnosis for this admission?: Yes Plan: Resolved with IV fluids (8) E coli infection Is this a current diagnosis for this admission?: Yes Plan: Sensitive to the ceftriaxone. We will continue for now. Transition to oral antibiotics at discharge. (9) Edentulous Is this a current diagnosis for this admission?: Yes Plan: I am going to change her diet to mechanical soft with ground meats. Clearly there is no way she can chew foods such as the hamburger that was delivered today. This should allow easier nutrition. - Plan Summary Summary: Patient will be admitted to the medical floor where she received routine supportive and symptomatic cares. She will be treated with IV fluids utilizing lactated D5LR at 167 mL/h initially. She will receive IV Rocephin. Serial lactic acids will be obtained. She will receive Ativan 1 mg IV every 4 hours as needed for restlessness or anxiety. She will be placed on a cardiac diet. CBCs, metabolic profiles and additional laboratory and/or radiographic eval uations will be obtained as needed. Patient's fever will be treated with Tylenol orally or via suppository as required. 06/10/2020 The patient certainly appears better. White cell count is still elevated. Serology test for COVID was ordered as it will be required before the patient returns to the [facility]. Hopefully this will occur within the next 2 days. - Time Time Spent with patient: 15-24 minutes Medications reviewed and adjusted accordingly: Yes Anticipated Discharge Disposition: [facility] Care Facility Anticipated Discharge Timeframe: within 72 hours
[2020-06-10] MEDS: LEVALBUTEROL HCL NEB 0.63 MG/3 ML AMPUL NEB PRN (20:29)
[2020-06-10] MEDS: CEFTRIAXONE 1 GM/D5W RTU 1 GM/50 ML RTUPB IV SCH (21:48)
[2020-06-10] MEDS: ARIPIPRAZOLE 2 MG TABLET PO SCH (21:48)
[2020-06-11 05:23] LABS: HEMATOCRIT 33.4 % (36.0-47.0); HEMOGLOBIN 11.3 g/dL (12.0-15.5); MEAN CORPUSCULAR HGB CONC 33.7 g/dL (32.0-36.0); MEAN CORPUSCULAR VOLUME 92 fl (80-97); PLATELET COUNT 167 10^3/uL (150-450); RED BLOOD COUNT 3.63 10^6/uL (3.72-5.28); RED CELL DISTRIBUTION WIDTH 13.8 % (11.5-14.0); WHITE BLOOD COUNT 13.4 10^3/uL (4.0-10.5)
[2020-06-11 05:44] LABS: ANION GAP 8 (5-19); BLOOD UREA NITROGEN 9 mg/dL (7-20); CALCIUM 8.5 mg/dL (8.4-10.2); CARBON DIOXIDE 25 mmol/L (22-30); CHLORIDE 106 mmol/L (98-107); GLUCOSE 90 mg/dL (75-110); POTASSIUM 3.6 mmol/L (3.6-5.0)
[2020-06-11] MEDS: DIVALPROEX SODIUM 125 MG CAP.SPRINK PO SCH ×2 (06:35→14:32)
[2020-06-11] MEDS: PANTOPRAZOLE SODIUM 40 MG TABLET.DR PO SCH (06:36)
[2020-06-11] MEDS: PAROXETINE HCL 20 MG TABLET PO SCH (10:39)
[2020-06-11] MEDS: BUPROPION HCL 75 MG TABLET PO SCH (10:40)
[2020-06-11] MEDS: LORAZEPAM 0.5 MG TABLET PO SCH (10:40)
[2020-06-11] MEDS: LEVALBUTEROL HCL NEB 0.63 MG/3 ML AMPUL NEB PRN (14:19)
[2020-06-11 14:37] VITALS: BP 126/58
--- NOTE | 2020-06-11 15:08 | PDOC DISCHARGE SUMMARY ---
Impression - Admit/DC Date/PCP Admission Date/Primary Care Provider: 06/09/20 01:28 JOHN HOPKINS Discharge Date: 06/11/20 - Discharge Diagnosis (1) Sepsis Is this a current diagnosis for this admission?: Yes (2) UTI (urinary tract infection) Is this a current diagnosis for this admission?: Yes (3) Encephalopathy due to infection Is this a current diagnosis for this admission?: Yes (4) Fever Is this a current diagnosis for this admission?: Yes (5) Leukocytosis Is this a current diagnosis for this admission?: Yes (6) Dementia Is this a current diagnosis for this admission?: Yes (7) Lactic acidemia Is this a current diagnosis for this admission?: Yes (8) E coli infection Is this a current diagnosis for this admission?: Yes (9) Edentulous Is this a current diagnosis for this admission?: Yes - Assessment Summary: Patient will be admitted to the medical floor where she received routine supportive and symptomatic cares. She will be treated with IV fluids utilizing lactated D5LR at 167 mL/h initially. She will receive IV Rocephin. Serial lactic acids will be obtained. She will receive Ativan 1 mg IV every 4 hours as needed for restlessness or anxiety. She will be placed on a cardiac diet. CBCs, metabolic profiles and additional laboratory and/or radiographic evaluations will be obtained as needed. Patient's fever will be treated with Tylenol orally or via suppository as required. 06/10/2020 The patient certainly appears better. White cell count is still elevated. Serology test for COVID was ordered as it will be required before the patient returns to the [facility]. Hopefully this will occur within the next 2 days. - Additional Information Resuscitation Status: Full Code Discharge Diet: Diabetic Discharge Activity: Activity As Tolerated, Slowly Increase Activity Referrals: LUCIANO RODRIGUEZ FNP-C [Primary Care Provider] - Follow up as needed Prescriptions: Cephalexin [Cephalexin 500 MG Tablet] 500 mg PO BID 4 Days #8 tablet Home Medications: Aripiprazole 2 mg PO QHS 10/10/19 Bupropion HCl [Wellbutrin 75 mg Tablet] 75 mg PO DAILY 10/10/19 Divalproex Sodium [Depakote Sprinkle] 250 mg PO Q8 10/10/19 Paroxetine HCl [Paxil 20 mg Tablet] 20 mg PO DAILY 10/10/19 Risperidone [Risperdal 1 mg Tablet] 1 mg PO Q8HP PRN 10/10/19 Acetaminophen [Pain Relief Extra Strength] 1,000 mg PO Q8HP PRN 06/09/20 Albuterol Sulfate [Albuterol Sulfate Hfa] 2 puff IH Q6HP PRN 06/09/20 Cold Cream/Zinc Oxide/Star/Ismael [Dermacloud Ointment] 1 applic TOP ASDIR PRN 06/09/20 Guaifenesin [Robafen] 10 ml PO Q4HP PRN 06/09/20 Lorazepam 0.5 mg PO BID 06/09/20 Magnesium Hydroxide [Milk of Magnesia 30 ml Udcup] 30 ml PO ASDIR PRN 06/09/20 Neomycin/Bacitracin/Polymyxinb [Triple Antibiotic Ointment] 1 applic TOP ASDIR PRN 06/09/20 Cephalexin [Cephalexin 500 MG Tablet] 500 mg PO BID 4 Days #8 tablet 06/11/20 Guaifenesin [Robitussin Syrup 200 mg/10 ml Ud Cup] 200 mg PO Q4HP PRN udc 06/11/20 Promethazine HCl [Phenergan Inj 25 mg/1 ml Vial] 12.5 mg IV Q4HP PRN vial 06/11/20 History of Present Illiness History of Present Illness: LUCHO BROWN is a 79 year old female who presented to the emergency room with an acutely increased level of confusion. The patient was noted by her care st aff at the [facility] to be acutely more confused than usual and she was subsequently sent to the hospital for further evaluation in the emergency room. Patient has severe dementia and is unable to contribute to her medical care. In the emergency room the patient was found to have a temperature 102 F and was noted to be hypotensive with a systolic blood pressure of 85. Her temperature was treated with Tylenol and her blood pressure responded well to a fluid bolus. She was noted to have significant pyuria with a positive nitrite and was therefore initiated on antibiotic therapy by the emergency room provider before he called the hospitalist service for admission. Patient was subsequently admitted to the hospital for further evaluation treatment. Hospital Course Hospital Course: Unremarkable hospital course. Sepsis resolved with antibiotics and fluids. As the infection improved her mental status I called. She is likely back at baseline. The bacteria in the urine was E. coli sensitive to cephalosporins. Physical Exam Vital Signs: Temp Pulse Resp BP Pulse Ox 98.7 F 80 20 126/58 H 98 06/11/20 14:37 06/11/20 14:37 06/11/20 14:37 06/11/20 14:37 06/11/20 14:37 Intake & Output 06/10/20 06/11/20 06/12/20 06:59 06:59 06:59 Intake Total 2750 2240 50 Output Total 3005 3425 1000 Balance -255 -1185 -950 Weight 77.9 kg 77 kg General appearance: PRESENT: no acute distress Respiratory exam: PRESENT: clear to auscultation [place], unlabored. ABSENT: rales, rhonchi Cardiovascular exam: PRESENT: RRR, +S1, +S2 GI/Abdominal exam: PRESENT: normal bowel sounds, soft. ABSENT: tenderness Rectal exam: PRESENT: deferred Neurological exam: PRESENT: alert, awake, oriented to person Psychiatric exam: PRESENT: appropriate affect. ABSENT: agitated, anxious Focused psych exam: ABSENT: delusional, paranoid, restlessness Skin exam: PRESENT: dry, normal color, warm Results Laboratory Results: WBC 13.4 10^3/uL (4.0-10.5) H 06/11/20 04:13 RBC 3.63 10^6/uL (3.72-5.28) L 06/11/20 04:13 Hgb 11.3 g/dL (12.0-15.5) L 06/11/20 04:13 Hct 33.4 % (36.0-47.0) L 06/11/20 04:13 MCV 92 fl (80-97) 06/11/20 04:13 MCH 31.0 pg (27.0-33.4) 06/11/20 04:13 MCHC 33.7 g/dL (32.0-36.0) 06/11/20 04:13 RDW 13.8 % (11.5-14.0) 06/11/20 04:13 Plt Count 167 10^3/uL (150-450) 06/11/20 04:13 Lymph % (Auto) 13.5 % (13-45) 06/10/20 05:52 [place] % (Auto) 14.3 % (3-13) H 06/10/20 05:52 Eos % (Auto) 0.2 % (0-6) 06/10/20 05:52 Baso % (Auto) 0.5 % (0-2) 06/10/20 05:52 Absolute Neuts (auto) 13.9 10^3/uL (1.7-8.2) H 06/10/20 05:52 Absolute Lymphs (auto) 2.6 10^3/uL (0.5-4.7) 06/10/20 05:52 Absolute Monos (auto) 2.8 10^3/uL (0.1-1.4) H 06/10/20 05:52 Absolute Eos (auto) 0.0 10^3/uL (0.0-0.6) 06/10/20 05:52 Absolute Basos (auto) 0.1 10^3/uL (0.0-0.2) 06/10/20 05:52 Seg Neutrophils % 71.5 % (42-78) 06/10/20 05:52 PT 14.1 SEC (11.4-15.4) 06/08/20 21:06 INR 1.07 06/08/20 21:06 APTT 29.6 SEC (23.5-35.8) 06/08/20 21:06 Sodium 138.7 mmol/L (137-145) 06/11/20 04:13 Potassium 3.6 mmol/L (3.6-5.0) 06/11/20 04:13 Chloride 106 mmol/L (98-107) 06/11/20 04:13 Carbon Dioxide 25 mmol/L (22-30) 06/11/20 04:13 Anion Gap 8 (5-19) 06/11/20 04:13 BUN 9 mg/dL (7-20) 06/11/20 04:13 Creatinine 0.58 mg/dL (0.52-1.25) 06/11/20 04:13 Est GFR ( Amer) > 60 (>60) 06/11/20 04:13 Est GFR (MDRD) Non-Af > 60 (>60) 06/11/20 04:13 Glucose 90 mg/dL (75-110) 06/11/20 04:13 POC Glucose 96 mg/dL (70-110) 06/11/20 11:38 Lactic Acid 1.4 mmol/L (0.7-2.1) 06/09/20 09:27 Calcium 8.5 mg/dL (8.4-10.2) 06/11/20 04:13 Total Bilirubin 0.5 mg/dL (0.2-1.3) 06/10/20 05:52 Direct Bilirubin 0.0 mg/dL (0.0-0.4) 06/10/20 05:52 Neonat Total Bilirubin Not Reportable 06/10/20 05:52 Neonat Direct Bilirubin Not Reportable 06/10/20 05:52 Neonat Indirect Bili Not Reportable 06/10/20 05:52 AST 28 U/L (14-36) 06/10/20 05:52 ALT 10 U/L (<35) 06/10/20 05:52 Alkaline Phosphatase 53 U/L (38-126) 06/10/20 05:52 Creatine Kinase 84 U/L (30-135) 06/08/20 21:06 CK-MB (CK-2) 0.93 ng/mL (<4.55) 06/08/20 21:06 Troponin I < 0.012 ng/mL 06/08/20 21:06 Total Protein 5.7 g/dL (6.3-8.2) L 06/10/20 05:52 Albumin 2.8 g/dL (3.5-5.0) L 06/10/20 05:52 Urine Color YELLOW 06/08/20 21:40 Urine Appearance CLOUDY 06/08/20 21:40 Urine pH 6.0 (5.0-9.0) 06/08/20 21:40 Ur Specific [place] 1.016 06/08/20 21:40 Urine Protein 100 mg/dL (NEGATIVE) H 06/08/20 21:40 Urine Glucose (UA) NEGATIVE mg/dL (NEGATIVE) 06/08/20 21:40 Urine Ketones TRACE mg/dL (NEGATIVE) H 06/08/20 21:40 Urine Blood MODERATE (NEGATIVE) H 06/08/20 21:40 Urine Nitrite POSITIVE (NEGATIVE) H 06/08/20 21:40 Urine Bilirubin NEGATIVE (NEGATIVE) 06/08/20 21:40 Urine Urobilinogen 4.0 mg/dL (<2.0) H 06/08/20 21:40 Ur Leukocyte Esterase LARGE (NEGATIVE) H 06/08/20 21:40 Urine WBC (Auto) >182 /HPF 06/08/20 21:40 Urine RBC (Auto) 21 /HPF 06/08/20 21:40 Urine Bacteria (Auto) TRACE /HPF 06/08/20 21:40 Urine WBC Clumps MOD /HPF 06/08/20 21:40 U Non-Squamous Epis Auto 2 /HPF 06/08/20 21:40 Urine Mucus (Auto) FEW /LPF 06/08/20 21:40 Urine Ascorbic Acid NEGATIVE (NEGATIVE) 06/08/20 21:40 Valproic Acid 77.7 ug/mL (50.0-120.0) 06/08/20 21:06 COVID-19 Source NASOPHARYNGEAL 06/09/20 12:20 COVID-19 (RAJESH) NOT DETECTED 06/09/20 12:20 06/08/20 21:06 CK-MB (CK-2) 0.93 Troponin I < 0.012 Impressions: Cervical Spine CT 06/08/20 00:00 IMPRESSION: 1. No acute intracranial hemorrhage. 2. No acute fracture or subluxation of the cervical spine. Head CT 06/08/20 00:00 IMPRESSION: 1. No acute intracranial hemorrhage. 2. No acute fracture or subluxation of the cervical spine. Chest X-Ray 06/08/20 21:11 IMPRESSION: No acute cardiopulmonary process copyright 2011 [employer]- All Rights Reserved Plan Health Concerns: Urosepsis Plan of Treatment: Complete antibiotics as ordered Goals: Resolution of urinary infection Time Spent: Greater than 30 Minutes Stroke Is this a Stroke Patient?: No Acute Heart Failure - Is this a Heart Failure Patient?: No
--- NOTE | 2020-06-11 15:13 | PDOC TRANSFER SUMMARY ---
Impression - Admit/DC Date/PCP Admission Date/Primary Care Provider: 06/09/20 01:28 JOHN HOPKINS Discharge Date: 06/11/20 - Discharge Diagnosis (1) Sepsis Is this a current diagnosis for this admission?: Yes (2) UTI (urinary tract infection) Is this a current diagnosis for this admission?: Yes (3) Encephalopathy due to infection Is this a current diagnosis for this admission?: Yes (4) Fever Is this a current diagnosis for this admission?: Yes (5) Leukocytosis Is this a current diagnosis for this admission?: Yes (6) Dementia Is this a current diagnosis for this admission?: Yes (7) Lactic acidemia Is this a current diagnosis for this admission?: Yes (8) E coli infection Is this a current diagnosis for this admission?: Yes (9) Edentulous Is this a current diagnosis for this admission?: Yes - Assessment Summary: Patient will be admitted to the medical floor where she received routine supportive and symptomatic cares. She will be treated with IV fluids utilizing lactated D5LR at 167 mL/h initially. She will receive IV Rocephin. Serial lactic acids will be obtained. She will receive Ativan 1 mg IV every 4 hours as needed for restlessness or anxiety. She will be placed on a cardiac diet. CBCs, metabolic profiles and additional laboratory and/or radiographic evaluations will be obtained as needed. Patient's fever will be treated with Tylenol orally or via suppository as required. 06/10/2020 The patient certainly appears better. White cell count is still elevated. Serology test for COVID was ordered as it will be required before the patient returns to the [facility]. Hopefully this will occur within the next 2 days. - Additional Information Resuscitation Status: Full Code Discharge Diet: Diabetic Discharge Activity: Activity As Tolerated, Slowly Increase Activity Referrals: LUCIANO RODRIGUEZ FNP-C [Primary Care Provider] - Follow up as needed Prescriptions: Cephalexin [Cephalexin 500 MG Tablet] 500 mg PO BID 4 Days #8 tablet Home Medications: Aripiprazole 2 mg PO QHS 10/10/19 Bupropion HCl [Wellbutrin 75 mg Tablet] 75 mg PO DAILY 10/10/19 Divalproex Sodium [Depakote Sprinkle] 250 mg PO Q8 10/10/19 Paroxetine HCl [Paxil 20 mg Tablet] 20 mg PO DAILY 10/10/19 Risperidone [Risperdal 1 mg Tablet] 1 mg PO Q8HP PRN 10/10/19 Acetaminophen [Pain Relief Extra Strength] 1,000 mg PO Q8HP PRN 06/09/20 Albuterol Sulfate [Albuterol Sulfate Hfa] 2 puff IH Q6HP PRN 06/09/20 Cold Cream/Zinc Oxide/Star/Ismael [Dermacloud Ointment] 1 applic TOP ASDIR PRN 06/09/20 Guaifenesin [Robafen] 10 ml PO Q4HP PRN 06/09/20 Lorazepam 0.5 mg PO BID 06/09/20 Magnesium Hydroxide [Milk of Magnesia 30 ml Udcup] 30 ml PO ASDIR PRN 06/09/20 Neomycin/Bacitracin/Polymyxinb [Triple Antibiotic Ointment] 1 applic TOP ASDIR PRN 06/09/20 Cephalexin [Cephalexin 500 MG Tablet] 500 mg PO BID 4 Days #8 tablet 06/11/20 Guaifenesin [Robitussin Syrup 200 mg/10 ml Ud Cup] 200 mg PO Q4HP PRN udc 06/11/20 Promethazine HCl [Phenergan Inj 25 mg/1 ml Vial] 12.5 mg IV Q4HP PRN vial 06/11/20 History of Present Illiness History of Present Illness: LUCHO BROWN is a 79 year old female who presented to the emergency room with an acutely increased level of confusion. The patient was noted by her care st aff at the [facility] to be acutely more confused than usual and she was subsequently sent to the hospital for further evaluation in the emergency room. Patient has severe dementia and is unable to contribute to her medical care. In the emergency room the patient was found to have a temperature 102 F and was noted to be hypotensive with a systolic blood pressure of 85. Her temperature was treated with Tylenol and her blood pressure responded well to a fluid bolus. She was noted to have significant pyuria with a positive nitrite and was therefore initiated on antibiotic therapy by the emergency room provider before he called the hospitalist service for admission. Patient was subsequently admitted to the hospital for further evaluation treatment. Hospital Course Hospital Course: Unremarkable hospital course. Sepsis resolved with antibiotics and fluids. As the infection improved her mental status I called. She is likely back at baseline. The bacteria in the urine was E. coli sensitive to cephalosporins. Physical Exam Vital Signs: Temp Pulse Resp BP Pulse Ox 98.7 F 80 20 126/58 H 98 06/11/20 14:37 06/11/20 14:37 06/11/20 14:37 06/11/20 14:37 06/11/20 14:37 Intake & Output 06/10/20 06/11/20 06/12/20 06:59 06:59 06:59 Intake Total 2750 2240 50 Output Total 3005 3425 1000 Balance -255 -1185 -950 Weight 77.9 kg 77 kg General appearance: PRESENT: no acute distress Head exam: PRESENT: atraumatic, normocephalic Respiratory exam: PRESENT: symmetrical, unlabored. ABSENT: rales, rhonchi, tachypnea, wheezes Cardiovascular exam: PRESENT: RRR, +S1, +S2 GI/Abdominal exam: PRESENT: normal bowel sounds, soft. ABSENT: guarding, tenderness Rectal exam: PRESENT: deferred Gentrourinary exam: PRESENT: indwelling catheter Neurological exam: PRESENT: alert, awake, oriented to person Psychiatric exam: PRESENT: appropriate affect. ABSENT: agitated, anxious Focused psych exam: ABSENT: delusional, paranoid, restlessness Results Laboratory Results: WBC 13.4 10^3/uL (4.0-10.5) H 06/11/20 04:13 RBC 3.63 10^6/uL (3.72-5.28) L 06/11/20 04:13 Hgb 11.3 g/dL (12.0-15.5) L 06/11/20 04:13 Hct 33.4 % (36.0-47.0) L 06/11/20 04:13 MCV 92 fl (80-97) 06/11/20 04:13 MCH 31.0 pg (27.0-33.4) 06/11/20 04:13 MCHC 33.7 g/dL (32.0-36.0) 06/11/20 04:13 RDW 13.8 % (11.5-14.0) 06/11/20 04:13 Plt Count 167 10^3/uL (150-450) 06/11/20 04:13 Lymph % (Auto) 13.5 % (13-45) 06/10/20 05:52 [place] % (Auto) 14.3 % (3-13) H 06/10/20 05:52 Eos % (Auto) 0.2 % (0-6) 06/10/20 05:52 Baso % (Auto) 0.5 % (0-2) 06/10/20 05:52 Absolute Neuts (auto) 13.9 10^3/uL (1.7-8.2) H 06/10/20 05:52 Absolute Lymphs (auto) 2.6 10^3/uL (0.5-4.7) 06/10/20 05:52 Absolute Monos (auto) 2.8 10^3/uL (0.1-1.4) H 06/10/20 05:52 Absolute Eos (auto) 0.0 10^3/uL (0.0-0.6) 06/10/20 05:52 Absolute Basos (auto) 0.1 10^3/uL (0.0-0.2) 06/10/20 05:52 Seg Neutrophils % 71.5 % (42-78) 06/10/20 05:52 PT 14.1 SEC (11.4-15.4) 06/08/20 21:06 INR 1.07 06/08/20 21:06 APTT 29.6 SEC (23.5-35.8) 06/08/20 21:06 Sodium 138.7 mmol/L (137-145) 06/11/20 04:13 Potassium 3.6 mmol/L (3.6-5.0) 06/11/20 04:13 Chloride 106 mmol/L (98-107) 06/11/20 04:13 Carbon Dioxide 25 mmol/L (22-30) 06/11/20 04:13 Anion Gap 8 (5-19) 06/11/20 04:13 BUN 9 mg/dL (7-20) 06/11/20 04:13 Creatinine 0.58 mg/dL (0.52-1.25) 06/11/20 04:13 Est GFR ( Amer) > 60 (>60) 06/11/20 04:13 Est GFR (MDRD) Non-Af > 60 (>60) 06/11/20 04:13 Glucose 90 mg/dL (75-110) 06/11/20 04:13 POC Glucose 96 mg/dL (70-110) 06/11/20 11:38 Lactic Acid 1.4 mmol/L (0.7-2.1) 06/09/20 09:27 Calcium 8.5 mg/dL (8.4-10.2) 06/11/20 04:13 Total Bilirubin 0.5 mg/dL (0.2-1.3) 06/10/20 05:52 Direct Bilirubin 0.0 mg/dL (0.0-0.4) 06/10/20 05:52 Neonat Total Bilirubin Not Reportable 06/10/20 05:52 Neonat Direct Bilirubin Not Reportable 06/10/20 05:52 Neonat Indirect Bili Not Reportable 06/10/20 05:52 AST 28 U/L (14-36) 06/10/20 05:52 ALT 10 U/L (<35) 06/10/20 05:52 Alkaline Phosphatase 53 U/L (38-126) 06/10/20 05:52 Creatine Kinase 84 U/L (30-135) 06/08/20 21:06 CK-MB (CK-2) 0.93 ng/mL (<4.55) 06/08/20 21:06 Troponin I < 0.012 ng/mL 06/08/20 21:06 Total Protein 5.7 g/dL (6.3-8.2) L 06/10/20 05:52 Albumin 2.8 g/dL (3.5-5.0) L 06/10/20 05:52 Urine Color YELLOW 06/08/20 21:40 Urine Appearance CLOUDY 06/08/20 21:40 Urine pH 6.0 (5.0-9.0) 06/08/20 21:40 Ur Specific [place] 1.016 06/08/20 21:40 Urine Protein 100 mg/dL (NEGATIVE) H 06/08/20 21:40 Urine Glucose (UA) NEGATIVE mg/dL (NEGATIVE) 06/08/20 21:40 Urine Ketones TRACE mg/dL (NEGATIVE) H 06/08/20 21:40 Urine Blood MODERATE (NEGATIVE) H 06/08/20 21:40 Urine Nitrite POSITIVE (NEGATIVE) H 06/08/20 21:40 Urine Bilirubin NEGATIVE (NEGATIVE) 06/08/20 21:40 Urine Urobilinogen 4.0 mg/dL (<2.0) H 06/08/20 21:40 Ur Leukocyte Esterase LARGE (NEGATIVE) H 06/08/20 21:40 Urine WBC (Auto) >182 /HPF 06/08/20 21:40 Urine RBC (Auto) 21 /HPF 06/08/20 21:40 Urine Bacteria (Auto) TRACE /HPF 06/08/20 21:40 Urine WBC Clumps MOD /HPF 06/08/20 21:40 U Non-Squamous Epis Auto 2 /HPF 06/08/20 21:40 Urine Mucus (Auto) FEW /LPF 06/08/20 21:40 Urine Ascorbic Acid NEGATIVE (NEGATIVE) 06/08/20 21:40 Valproic Acid 77.7 ug/mL (50.0-120.0) 06/08/20 21:06 COVID-19 Source NASOPHARYNGEAL 06/09/20 12:20 COVID-19 (RAJESH) NOT DETECTED 06/09/20 12:20 06/08/20 21:06 CK-MB (CK-2) 0.93 Troponin I < 0.012 Impressions: Cervical Spine CT 06/08/20 00:00 IMPRESSION: 1. No acute intracranial hemorrhage. 2. No acute fracture or subluxation of the cervical spine. Head CT 06/08/20 00:00 IMPRESSION: 1. No acute intracranial hemorrhage. 2. No acute fracture or subluxation of the cervical spine. Chest X-Ray 06/08/20 21:11 IMPRESSION: No acute cardiopulmonary process copyright 2011 [employer]- All Rights Reserved Plan Health Concerns: Urosepsis Plan of Treatment: Complete antibiotics as ordered Goals: Resolution of urinary infection Stroke Is this a Stroke Patient?: No Acute Heart Failure - Is this a Heart Failure Patient?: No
== END 2020-06-11 16:10 | DRG 871 ==
LOC: ER 20:57 → 4W 06-09 01:28 → EH 06-09 01:28 → UNDOADMIN 06-09 01:28 → 4W 06-09 09:46 → EH 06-09 09:46
PROVIDERS: ADMIT Emergency Medicine; ATTEND Hospitalist
DX: A41.9 Sepsis, unspecified organism (principal); G93.41 Metabolic encephalopathy; N39.0 Urinary tract infection, site not specified; F02.81 Dementia in other diseases classified elsewhere, unspecified severity, with behavioral disturbance; G30.9 Alzheimer's disease, unspecified; D72.829 Elevated white blood cell count, unspecified; B96.20 Unspecified Escherichia coli [E. coli] as the cause of diseases classified elsewhere; K06.9 Disorder of gingiva and edentulous alveolar ridge, unspecified; Z20.828 Contact with and (suspected) exposure to other viral communicable diseases; Z78.1 Physical restraint status; R65.20 Severe sepsis without septic shock
CPT/HCPCS: 36415; 70450; 71045; 72125; 80048; 80053; 80164; 81001; 82550; 82553; 82962; 83605; 84484; 85025; 85027; 85610; 85730; 87040; 87086; 87088; 87186; 87635; 93005; 93010; 94640; 96361; 96365; 96375; 99285; C9803; J0696; J2060; J3370; J3490; J7030; J7120

== ENCOUNTER 2020-07-01 14:38 | Observation (INO) | payer MEDICARE, MEDICAID ==
--- NOTE | 2020-07-01 15:07 | ER Document Report ---
ED General - General TRAVEL OUTSIDE OF THE [place] IN LAST 30 DAYS: No <KODI MORENO - Last Filed: 07/01/20 23:00> <LINDA TADEO JR - Last Filed: 07/02/20 20:15> - General Information source: POA - Power of Product Safety Coordinator <MAY MACK - Last Filed: 07/04/20 18:48> - General Chief Complaint: Hip Pain Stated Complaint: HIP PAIN Time Seen by Provider: 07/01/20 14:41 Primary Care Provider: LUCIANO RODRIGUEZ FNP-C [Primary Care Provider] - Follow up as needed Notes: Patient is a 79-year-old female who presents emergency department with a chief complaint of left hip pain, as per EMS. Patient was seen at [facility] for a left anterior trochanteric hip fracture. This was repaired on June 26 at [facility]. Patient fell on June 25. She was also diagnosed with a urinary tract infection. Patient was discharged from the facility back to [facility] on June 27. According to the primary nurse, [facility] is unable to care for the patient due to needing acute rehab. Patient denies any pain. Patient is alert and oriented x1. This is the patient's baseline per EMS. After review of records here at this facility, the patient has history of urinary tract infections in the past. (KODI MORENO) - Related Data Allergies/Adverse Reactions: No Known Allergies Allergy (Verified 06/08/20 22:22) Past Medical History - Social History Smoking Status: Unknown if Ever Smoked Family History: Other - No family history is available - Past Medical History Cardiac Medical History: Reports: Hx Hypercholesterolemia, Hx Hypertension Pulmonary Medical History: Reports: Hx COPD Denies: Hx Respiratory Failure Neurological Medical History: Denies: Hx Seizures Endocrine Medical History: Denies: Hx Diabetes Mellitus Type 1, Hx Diabetes Mellitus Type 2, Hx Hyperthyroidism, Hx Hypothyroidism Renal/ Medical History: Denies: Hx Peritoneal Dialysis GI Medical History: Denies: Hx Cirrhosis, Hx Hepatitis Musculoskeletal Medical History: Denies Hx Fibromyalgia, Denies Hx Gout Skin Medical History: Denies Hx Eczema, Denies Hx Psoriasis Psychiatric Medical History: Reports: Hx Dementia, Hx Depression Infectious Medical History: Denies: Hx Hepatitis Past Surgical History: Reports: Hx Appendectomy, Hx Hysterectomy, Hx Kidney (Renal Surgery), Hx Tonsillectomy <KODI MORENO - Last Filed: 07/01/20 23:00> Review of Systems - Review of Systems -: Yes ROS unobtainable due to patient's medical condition <KODI MORENO - Last Filed: 07/01/20 23:00> Physical Exam <KODI MORENO - Last Filed: 07/01/20 23:00> - Vital signs Vitals: Temp Pulse Resp BP Pulse Ox 98.7 F 78 14 122/76 98 07/01/20 15:01 07/01/20 15:01 07/01/20 15:01 07/01/20 15:01 07/01/20 15:01 - Notes Notes: PHYSICAL EXAMINATION: GENERAL: Appears well, healthy, well-nourished, no acute distress. HEAD: Normocephalic, atraumatic. EYES: PERRL, conjunctiva normal, all extraocular movements intact, sclera nonicteric ENT: Moist mucous membranes. NECK: Supple, no noticeable swelling, redness, rash. Normal range of motion. LUNGS: Equal breath sounds bilaterally and clear to auscultation. No wheezes rales or rhonchi. CARDIOVASCULAR: S1-S2, regular rate, regular rhythm. Radial pulses 2+, normal. ABDOMEN: Normoactive bowel sounds. Soft, nontender, no guarding, no rebound tenderness, and no masses palpated. EXTREMITIES: Normal strength and range of motion, no pitting or edema. No cyanosis. NEUROLOGICAL: Moves all extremities upon command. Strength 5/5 in all extremities. PSYCH: Normal mood, normal affect. SKIN: Warm, dry. Tamiko in place to the left lateral thigh at hip and upper thigh. (KODI MORENO) Course - Laboratory Result Diagrams: 07/01/20 15:33 07/01/20 15:33 <KODI MORENO - Last Filed: 07/01/20 23:00> - Laboratory Result Diagrams: 07/01/20 15:33 07/01/20 15:33 <BAREFOOTLINDA JR - Last Filed: 07/02/20 20:15> - Laboratory Result Diagrams: 07/04/20 14:05 07/04/20 14:05 <MARTINAMAY - Last Filed: 07/04/20 18:48> - Re-evaluation Re-evalutation: 07/01/20 16:56 Hematology is unremarkable. Chemistries are also unremarkable. Urinalysis shows a moderate blood, but this was a cathed urine. At this time, the patient does not meet any admission criteria. Social work consulted. Hopefully the patient will be placed appropriately. I reevaluated the patient and she still denies any pain in her hip. I have not given her any medications. 07/01/20 17:08 Zaki Amezquita RN evaluated the patient. She also spoke with [facility] retirement. Tomorrow, Zkai will speak with [facility] for further management. If the patient does not require acute rehab, [facility] will take the patient back for care. Patient will be a social hold at this time. (KODI MORENO) - Vital Signs Vital signs: Temp Pulse Resp BP Pulse Ox 102.0 F H 91 20 113/56 L 97 07/04/20 17:39 07/04/20 13:13 07/04/20 06:43 07/04/20 13:13 07/04/20 13:13 - Laboratory Laboratory results interpreted by nh: 07/01/20 07/01/20 07/01/20 15:33 15:33 15:33 WBC RBC 3.54 L Hgb 10.8 L Hct 32.2 L RDW Lymph % (Auto) [place] % (Auto) 13.1 H Absolute Neuts (auto) Absolute Monos (auto) Sodium 135.9 L Glucose Creatine Kinase Total Protein 5.4 L Albumin 2.6 L Urine Protein Urine Ketones TRACE H Urine Blood MODERATE H Urine Urobilinogen 4.0 H Valproic Acid 07/02/20 07/04/20 07/04/20 10:58 14:05 14:05 WBC 14.3 H RBC 3.35 L Hgb 10.1 L Hct 29.9 L RDW 14.4 H Lymph % (Auto) 9.1 L [place] % (Auto) 18.6 H Absolute Neuts (auto) 10.3 H Absolute Monos (auto) 2.7 H Sodium 133.6 L Glucose 136 H Creatine Kinase 28 L Total Protein 5.8 L Albumin 2.7 L Urine Protein Urine Ketones Urine Blood Urine Urobilinogen Valproic Acid 43.0 L 07/04/20 14:05 WBC RBC Hgb Hct RDW Lymph % (Auto) [place] % (Auto) Absolute Neuts (auto) Absolute Monos (auto) Sodium Glucose Creatine Kinase Total Protein Albumin Urine Protein 30 H Urine Ketones TRACE H Urine Blood SMALL H Urine Urobilinogen 4.0 H Valproic Acid Critical Care Note <LINDA TADEO JR - Last Filed: 07/02/20 20:15> - Critical Care Note Comments: I discussed this case with [facility] who advised he will pass this on to the accepting crew. We will try to get this patient transfer back to [facility]. CT scan today revealed trochanteric avulsion along with hardware intact with ORIF. Patient has pain when she attempts to turn from side to side. She is now on a social hold here in room #47 per Zaki Stafford (LINDA TADEO JR) Discharge <JOSHKODI - Last Filed: 07/01/20 23:00> <LINDA TADEO JR - Last Filed: 07/02/20 20:15> - Discharge Admitting Provider: Bakari (Hospitalist) Unit Admitted: Medical Floor <MAY MACK - Last Filed: 07/04/20 18:48> - Discharge Clinical Impression: Hip fracture, intertrochanteric Qualifiers: Encounter type: sequela Fracture type: closed Fracture alignment: displaced Laterality: left Qualified Code(s): S72.142S - Displaced intertrochanteric fracture of left femur, sequela Fever Qualifiers: Fever type: unspecified Qualified Code(s): R50.9 - Fever, unspecified Condition: Stable Disposition: ADMITTED INPATIENT Referrals: LUCIANO RODRIGUEZ FNP-C [Primary Care Provider] - Follow up as needed
[2020-07-01 16:20] LABS: ABSOLUTE BASOPHILS # (AUTO) 0.1 10^3/uL (0.0-0.2); ABSOLUTE EOSINOPHILS # (AUTO) 0.1 10^3/uL (0.0-0.6); ABSOLUTE LYMPHOCYTES (AUTO) 2.5 10^3/uL (0.5-4.7); ABSOLUTE MONOCYTES (AUTO) 1.3 10^3/uL (0.1-1.4); ABSOLUTE NEUT (AUTO) 6.2 10^3/uL (1.7-8.2); BASOPHILS % (AUTO) 0.6 % (0-2); EOSINOPHILS % (AUTO) 1.1 % (0-6); HEMATOCRIT 32.2 % (36.0-47.0); HEMOGLOBIN 10.8 g/dL (12.0-15.5); LYMPHOCYTES % (AUTO) 24.5 % (13-45); MEAN CORPUSCULAR HEMOGLOBIN 30.4 pg (27.0-33.4); MEAN CORPUSCULAR HGB CONC 33.4 g/dL (32.0-36.0); MEAN CORPUSCULAR VOLUME 91 fl (80-97); MONOCYTES % (AUTO) 13.1 % (3-13); PLATELET COUNT 429 10^3/uL (150-450); RED BLOOD COUNT 3.54 10^6/uL (3.72-5.28); RED CELL DISTRIBUTION WIDTH 13.7 % (11.5-14.0); SEGMENTED NEUTROPHILS % (AUTO) 60.7 % (42-78); TOTAL CELLS COUNTED % (AUTO) 100 %; WHITE BLOOD COUNT 10.2 10^3/uL (4.0-10.5)
[2020-07-01 16:25] LABS: APPEARANCE,URINE CLEAR; BILIRUBIN,URINE NEGATIVE (NEGATIVE); COLOR,URINE YELLOW; GLUCOSE, URINE NEGATIVE (NEGATIVE); KETONES,URINE TRACE mg/dL (NEGATIVE); PROTEIN,URINE NEGATIVE (NEGATIVE); URINE SPECIFIC GRAVITY 1.011
[2020-07-01 16:38] LABS: ALBUMIN 2.6 g/dL (3.5-5.0); ALKALINE PHOSPHATASE 64 U/L (38-126); ANION GAP 7 (5-19); ASPARTATE AMINO TRANSFERASE 23 U/L (14-36); BILIRUBIN,DIRECT 0.2 mg/dL (0.0-0.4); BILIRUBIN,TOTAL 0.7 mg/dL (0.2-1.3); BLOOD UREA NITROGEN 12 mg/dL (7-20); CARBON DIOXIDE 27 mmol/L (22-30); CHLORIDE 102 mmol/L (98-107); GLUCOSE 94 mg/dL (75-110); POTASSIUM 4.4 mmol/L (3.6-5.0); TOTAL PROTEIN 5.4 g/dL (6.3-8.2)
[2020-07-01] MEDS ORDERED: ACETAMINOPHEN 1000 MG PO PRN (20:30)
[2020-07-01] MEDS ORDERED: ALBUTEROL SULFATE HFA (90 MCG/PUFF) 8 GM MDI (1 MDI/ER DISP) IH PRN (20:30)
[2020-07-01] MEDS ORDERED: RISPERIDONE 1 MG TABLET PO PRN (20:30)
[2020-07-01] MEDS: DIVALPROEX SODIUM 125 MG CAP.SPRINK PO SCH (22:34)
[2020-07-01] MEDS: ARIPIPRAZOLE 2 MG TABLET PO SCH (22:35)
[2020-07-02] MEDS: DIVALPROEX SODIUM 125 MG CAP.SPRINK PO SCH ×3 (06:35→22:18)
[2020-07-02] MEDS: LORAZEPAM 1 MG TABLET PO SCH ×2 (10:04→18:54)
[2020-07-02] MEDS: CIPROFLOXACIN HCL 500 MG TABLET PO SCH ×2 (10:05→18:55)
[2020-07-02] MEDS: BUPROPION HCL 75 MG TABLET PO SCH (10:05)
[2020-07-02] MEDS: PAROXETINE HCL 20 MG TABLET PO SCH (10:05)
[2020-07-02] MEDS: ACETAMINOPHEN 325 MG TABLET PO PRN (10:06)
[2020-07-02] MEDS: RIVAROXABAN 10 MG TABLET PO SCH (10:15)
--- NOTE | 2020-07-02 12:06 | RADIOLOGY REPORT (SQ) ---
EXAM DESCRIPTION: PELVIS AP IMAGES COMPLETED DATE/TIME: 07/02/2020 11:06 am REASON FOR STUDY: pain COMPARISON: None. NUMBER OF VIEWS: One view TECHNIQUE: AP Pelvis LIMITATIONS: None. FINDINGS: MINERALIZATION: Osteopenia. HIPS: Interval open reduction, internal fixation of the left femoral neck. A moderately displaced le sser trochanteric fracture is of uncertain chronicity. Degenerative changes are seen of the femoroac etabular joints. PELVIS AND SACRUM: No acute fracture or dislocation. No worrisome bone lesions. PUBIS AND ISCHIUM: No acute fracture. LOWER LUMBAR SPINE: No significant findings as visualized. SOFT TISSUES: No findings. OTHER: No other significant finding. IMPRESSION: Status post left femoral neck ORIF. Age-indeterminate avulsion injury of the left lesse r trochanter. COMMENT: Pelvic fractures are often occult on plain radiographs. If strong clinical suspicion for f racture, recommend CT or MR. TECHNICAL DOCUMENTATION: JOB ID: [id number] 2010 [employer]- All Rights Reserved Reading location - IP/workstation name: [email or web address]
--- NOTE | 2020-07-02 14:54 | RADIOLOGY REPORT (SQ) ---
EXAM DESCRIPTION: CT ABD/PELVIS NO ORAL OR IV IMAGES COMPLETED DATE/TIME: 07/02/2020 2:14 pm REASON FOR STUDY: pain COMPARISON: None. TECHNIQUE: CT scan of the abdomen and pelvis performed without intravenous or oral contrast. Images reviewed with lung, soft tissue, and bone windows. Reconstructed coronal and sagittal MPR images revi ewed. All images stored on PACS. All CT scanners at this facility use dose modulation, iterative reconstruction, and/or weight based d osing when appropriate to reduce radiation dose to as low as reasonably achievable (ALARA). [facility]: Dose Right [facility]: CareDose [facility]: Dose Right [facility]: Teradose 4D [facility]: Smart [employer] RADIATION DOSE: CT Rad equipment meets quality standard of care and radiation dose reduction techniq ues were employed. CTDIvol: 16.0 mGy. DLP: 883 mGy-cm.mGy. LIMITATIONS: None. FINDINGS: LOWER CHEST: No significant findings. No nodules or infiltrates. NON-CONTRASTED LIVER, SPLEEN, ADRENALS: Evaluation limited by lack of IV contrast. No identified sign ificant masses. PANCREAS: No masses. No peripancreatic inflammatory changes. GALLBLADDER: No identified stones by CT criteria. No inflammatory changes to suggest cholecystitis. RIGHT KIDNEY AND URETER: No suspicious masses. Assessment limited by lack of IV contrast. Faint non obstructing nephroliths. No hydronephrosis or hydroureter. LEFT KIDNEY AND URETER: No suspicious masses. Assessment limited by lack of IV contrast. Faint nono bstructing nephroliths. No hydronephrosis or hydroureter. AORTA AND RETROPERITONEUM: No aneurysm. No retroperitoneal masses or adenopathy. BOWEL AND PERITONEAL CAVITY: No obvious masses or inflammatory changes. No free fluid. APPENDIX: Not visualized. PELVIS, BLADDER, AND ABDOMINAL WALL:No abnormal masses. No free fluid. Bladder normal. BONES: Status post ORIF of the left femur without evidence of gross complication. In the setting of open reduction, internal fixation, the appearance of a lesser trochanter avulsion injury remains age indeterminate. Degenerative changes are seen of the hips and spine with grade 1 anterolisthesis of L 4 relative to L5 on the basis of disc degeneration. OTHER: There is a partially imaged nodular density within the left breast demonstrating a small calci fication. IMPRESSION: 1. Nonobstructing nephrolithiasis. No evidence of obstructive uropathy or acute intra- abdominal infectious/inflammatory process. 2. Status post ORIF of the left femur with age indeterminate avulsion injury of the lesser trochante r ; recommend correlation for mechanism of injury and point tenderness. Given the lack of surroundin g soft tissue findings, favor this to be a chronic injury. 3. Partially imaged left breast nodule ; no local mammograms for the purposes of direct comparison. Recommend correlate with outside studies or obtain routine screening mammogram if none have been per formed. COMMENT: Quality ID # [id number]: Final reports with documentation of one or more dose reduction techniques (e.g., Automated exposure control, adjustment of the mA and/or kV according to patient size, use of iterative reconstruction technique) TECHNICAL DOCUMENTATION: JOB ID: [id number] 2010 [employer]- All Rights Reserved Reading location - IP/workstation name: [email or web address]
[2020-07-02] MEDS: ARIPIPRAZOLE 2 MG TABLET PO SCH (22:18)
[2020-07-03] MEDS: DIVALPROEX SODIUM 125 MG CAP.SPRINK PO SCH ×3 (06:04→23:01)
[2020-07-03] MEDS: BUPROPION HCL 75 MG TABLET PO SCH (10:03)
[2020-07-03] MEDS: PAROXETINE HCL 20 MG TABLET PO SCH (10:03)
[2020-07-03] MEDS: RIVAROXABAN 10 MG TABLET PO SCH (10:03)
[2020-07-03] MEDS: LORAZEPAM 1 MG TABLET PO SCH ×2 (10:03→18:00)
[2020-07-03] MEDS: ARIPIPRAZOLE 2 MG TABLET PO SCH (23:01)
[2020-07-04] MEDS: DIVALPROEX SODIUM 125 MG CAP.SPRINK PO SCH ×3 (06:34→23:45)
[2020-07-04] MEDS: PAROXETINE HCL 20 MG TABLET PO SCH (10:31)
[2020-07-04] MEDS: BUPROPION HCL 75 MG TABLET PO SCH (10:31)
[2020-07-04] MEDS: LORAZEPAM 1 MG TABLET PO SCH ×2 (10:31→18:25)
[2020-07-04] MEDS: RIVAROXABAN 10 MG TABLET PO SCH (10:31)
[2020-07-04] MEDS: ACETAMINOPHEN 325 MG TABLET PO PRN (13:23)
--- NOTE | 2020-07-04 13:25 | ER Document Report ---
Doctor's Note Notes: 07/04/20 13:24 Nurse informed me the patient has had an increase in her temperature to 100.3, will give her Tylenol, and repeat lab work, chest x-ray and urine. 07/04/20 17:45 The patient is now about 4 hours since her last dose of Tylenol, and her temperatures up to 102 rectally. Her lungs sound clear on auscultation. The nurse reports that she was recently turned to clean and change her diaper and there was no decubitus ulcers seen. A repeat CBC shows that her white count is going up. The absolute neutrophil count has increased from 6.2-10.3. Urinalysis remains unremarkable. Chest x- ray does not show acute disease. Examination of the surgical wound on the left hip does not show any signs of cellulitis or drainage.
--- NOTE | 2020-07-04 13:43 | RADIOLOGY REPORT (SQ) ---
EXAM DESCRIPTION: CHEST SINGLE VIEW IMAGES COMPLETED DATE/TIME: 07/04/2020 1:32 pm REASON FOR STUDY: Fever COMPARISON: Chest radiograph 06/08/2020 NUMBER OF VIEWS: One view. TECHNIQUE: Single frontal radiographic view of the chest acquired. LIMITATIONS: None. FINDINGS: LUNGS AND PLEURA: No opacities, masses or pneumothorax. No pleural effusion. MEDIASTINUM AND HILAR STRUCTURES: No masses. Contour normal. HEART AND VASCULAR STRUCTURES: Heart normal in size. Normal vasculature. BONES: No acute findings. HARDWARE: None in the chest. OTHER: No other significant finding. IMPRESSION: NO SIGNIFICANT RADIOGRAPHIC FINDING IN THE CHEST. TECHNICAL DOCUMENTATION: JOB ID: [id number] 2010 [employer]- All Rights Reserved Reading location - IP/workstation name: [email or web address]
[2020-07-04 14:26] LABS: ABSOLUTE BASOPHILS # (AUTO) 0.1 10^3/uL (0.0-0.2); ABSOLUTE LYMPHOCYTES (AUTO) 1.3 10^3/uL (0.5-4.7); ABSOLUTE MONOCYTES (AUTO) 2.7 10^3/uL (0.1-1.4); ABSOLUTE NEUT (AUTO) 10.3 10^3/uL (1.7-8.2); BASOPHILS % (AUTO) 0.4 % (0-2); EOSINOPHILS % (AUTO) 0.1 % (0-6); HEMATOCRIT 29.9 % (36.0-47.0); HEMOGLOBIN 10.1 g/dL (12.0-15.5); LYMPHOCYTES % (AUTO) 9.1 % (13-45); MEAN CORPUSCULAR HEMOGLOBIN 30.2 pg (27.0-33.4); MEAN CORPUSCULAR HGB CONC 33.8 g/dL (32.0-36.0); MEAN CORPUSCULAR VOLUME 89 fl (80-97); MONOCYTES % (AUTO) 18.6 % (3-13); PLATELET COUNT 405 10^3/uL (150-450); RED BLOOD COUNT 3.35 10^6/uL (3.72-5.28); RED CELL DISTRIBUTION WIDTH 14.4 % (11.5-14.0); SEGMENTED NEUTROPHILS % (AUTO) 71.8 % (42-78); TOTAL CELLS COUNTED % (AUTO) 100 %; WHITE BLOOD COUNT 14.3 10^3/uL (4.0-10.5)
[2020-07-04 14:44] LABS: ALBUMIN 2.7 g/dL (3.5-5.0); ALKALINE PHOSPHATASE 71 U/L (38-126); ANION GAP 9 (5-19); ASPARTATE AMINO TRANSFERASE 19 U/L (14-36); BILIRUBIN,DIRECT 0.3 mg/dL (0.0-0.4); BILIRUBIN,TOTAL 0.7 mg/dL (0.2-1.3); BLOOD UREA NITROGEN 16 mg/dL (7-20); CALCIUM 8.8 mg/dL (8.4-10.2); CARBON DIOXIDE 24 mmol/L (22-30); CHLORIDE 101 mmol/L (98-107); CREATINE KINASE 28 U/L (30-135); GLUCOSE 136 mg/dL (75-110); POTASSIUM 4.3 mmol/L (3.6-5.0); TOTAL PROTEIN 5.8 g/dL (6.3-8.2)
[2020-07-04 14:50] LABS: AMORPHOUS SEDIMENT,URINE TRACE /HPF; APPEARANCE,URINE SLIGHTLY-CLOUDY; BILIRUBIN,URINE NEGATIVE (NEGATIVE); COLOR,URINE YELLOW; GLUCOSE, URINE NEGATIVE (NEGATIVE); KETONES,URINE TRACE mg/dL (NEGATIVE); LEUKOCYTE ESTERASE,URINE NEGATIVE (NEGATIVE); NITRITE,URINE NEGATIVE (NEGATIVE); PROTEIN,URINE 30 mg/dL (NEGATIVE); URINE SPECIFIC GRAVITY 1.015
[2020-07-04] MEDS ORDERED: ONDANSETRON HCL INJ/PF 4 MG/2 ML SDV IV PRN (18:47)
[2020-07-04] MEDS ORDERED: ACETAMINOPHEN 325 MG TABLET PO PRN ×2 (18:47→18:52)
[2020-07-04] MEDS ORDERED: MAG HYDROX/AL HYDROX/SIMETH SUSP 30 ML UDCUP PO PRN (18:47)
--- NOTE | 2020-07-04 19:04 | PDOC H&P ---
History of Present Illness Admission Date/PCP: JOHN HOPKINS Patient complains of: fever History of Present Illness: LUCHO BROWN is a 79 year old female with history of recent surgery of the left hip ORIF, recurrent UTI, and dementia who presents to the hospital from [facility] on 07/01/2020. Has been a social hold in the ER after patient's presented because of difficulty with care for patient and [facility] given her recent ORIF and her demented state. She has been awaiting placement at nursing facility for rehab. Hospitalist service consulted today because patient has been spiking fevers. Work-up currently has not revealed any source of infection with negative urinalysis, unchanged chest x-ray and pending COVID-19 resolved. Patient really not able to give me much in terms of subjective. She does grimace when I press on her abdomen. Past Medical History Cardiac Medical History: Reports: Hyperlipidema, Hypertension Pulmonary Medical History: Reports: Chronic Obstructive Pulmonary Disease (COPD) Denies: Respiratory Failure Neurological Medical History: Denies: Seizures Endocrine Medical History: Denies: Diabetes Mellitus Type 1, Diabetes Mellitus Type 2, Hyperthyroidism, Hypothyroidism GI Medical History: Denies: Cirrhosis, Hepatitis Musculoskeltal Medical History: Denies: Fibromyalgia, Gout Skin Medical History: Denies: Eczema, Psoriasis Psychiatric Medical History: Reports: Dementia, Depression Hematology: Reports: Anemia Denies: Bleeding Tendencies Past Surgical History Past Surgical History: Reports: Appendectomy, Hysterectomy, Orthopedic Surgery - L trochanter, Tonsillectomy Social History Smoking Status: Unknown if Ever Smoked Frequency of Alcohol Use: None Hx Recreational Drug Use: No Drugs: None Hx Prescription Drug Abuse: No Family History Family History: Other - No family history is available. Unable to obtain due to mental status. Parental Family History Reviewed: No Children Family History Reviewed: Unknown Sibling(s) Family History Reviewed.: Unknown Medication/Allergy Home Medications: Aripiprazole 2 mg PO QHS 10/10/19 Bupropion HCl [Wellbutrin 75 mg Tablet] 75 mg PO DAILY 10/10/19 Divalproex Sodium [Depakote Sprinkle] 250 mg PO Q8 10/10/19 Paroxetine HCl [Paxil 20 mg Tablet] 20 mg PO DAILY 10/10/19 Risperidone [Risperdal 1 mg Tablet] 1 mg PO Q8HP PRN 10/10/19 Acetaminophen [Pain Relief Extra Strength] 1,000 mg PO Q8HP PRN 06/09/20 Albuterol Sulfate [Albuterol Sulfate Hfa] 2 puff IH Q6HP PRN 06/09/20 Ciprofloxacin HCl [Cipro 500 mg Tablet] 250 mg PO BID MDD LAST DOSE JUN. 07/01/20 Lorazepam [Ativan 1 mg Tablet] 0.5 mg PO BID 07/01/20 Rivaroxaban [Xarelto 10 mg Tablet] 10 mg PO DAILY MDD THRU 07/01/20 Allergies/Adverse Reactions: No Known Allergies Allergy (Verified 06/08/20 22:22) Review of Systems ROS unobtainable: Due to mental status Physical Exam Vital Signs: Temp Pulse Resp BP Pulse Ox 102.0 F H 91 20 113/56 L 97 07/04/20 17:39 07/04/20 13:13 07/04/20 06:43 07/04/20 13:13 07/04/20 13:13 General appearance: PRESENT: no acute distress, cooperative Neck exam: ABSENT: JVD Respiratory exam: PRESENT: symmetrical, unlabored. ABSENT: tachypnea, wheezes Cardiovascular exam: PRESENT: RRR, +S1, +S2. ABSENT: tachycardia GI/Abdominal exam: PRESENT: soft, tenderness. ABSENT: distended, firm, guarding, rebound, rigid Extremities exam: ABSENT: pedal edema Neurological exam: PRESENT: alert, awake, other - Awakens easily but is not really conversant with me.. ABSENT: oriented to person, oriented to place, oriented to time, oriented to situation Psychiatric exam: ABSENT: agitated, anxious Focused psych exam: ABSENT: pressured speech Results Laboratory Results: 07/04/20 14:05 07/04/20 14:05 07/04/20 07/04/20 07/04/20 14:05 14:05 14:05 WBC 14.3 H RBC 3.35 L Hgb 10.1 L Hct 29.9 L MCV 89 MCH 30.2 MCHC 33.8 RDW 14.4 H Plt Count 405 Seg Neutrophils % 71.8 Sodium 133.6 L Potassium 4.3 Chloride 101 Carbon Dioxide 24 Anion Gap 9 BUN 16 Creatinine 0.70 Est GFR ( Amer) > 60 Glucose 136 H Lactic Acid Calcium 8.8 Total Bilirubin 0.7 AST 19 Alkaline Phosphatase 71 Total Protein 5.8 L Albumin 2.7 L Urine Color YELLOW Urine Appearance SLIGHTLY-CLOUDY Urine pH 7.0 Ur Specific [place] 1.015 Urine Protein 30 H Urine Glucose (UA) NEGATIVE Urine Ketones TRACE H Urine Blood SMALL H Urine Nitrite NEGATIVE Ur Leukocyte Esterase NEGATIVE Urine WBC (Auto) 4 Urine RBC (Auto) 14 07/04/20 17:45 WBC RBC Hgb Hct MCV MCH MCHC RDW Plt Count Seg Neutrophils % Sodium Potassium Chloride Carbon Dioxide Anion Gap BUN Creatinine Est GFR ( Amer) Glucose Lactic Acid 0.9 Calcium Total Bilirubin AST Alkaline Phosphatase Total Protein Albumin Urine Color Urine Appearance Urine pH Ur Specific [place] Urine Protein Urine Glucose (UA) Urine Ketones Urine Blood Urine Nitrite Ur Leukocyte Esterase Urine WBC (Auto) Urine RBC (Auto) 07/04/20 07/04/20 14:05 14:05 Creatine Kinase 28 L Troponin I < 0.012 Impressions: Pelvis X-Ray 07/02/20 10:50 IMPRESSION: Status post left femoral neck ORIF. Age-indeterminate avulsion injury of the left lesser trochanter. Abdomen/Pelvis CT 07/02/20 13:22 IMPRESSION: 1. Nonobstructing nephrolithiasis. No evidence of obstructive uropathy or acute intra-abdominal infectious/inflammatory process. 2. Status post ORIF of the left femur with age indeterminate avulsion injury of the lesser trochanter ; recommend correlation for mechanism of injury and point tenderness. Given the lack of surrounding soft tissue findings, favor this to be a chronic injury. 3. Partially imaged left breast nodule ; no local mammograms for the purposes of direct comparison. Recommend correlate with outside studies or obtain routine screening mammogram if none have been performed. Chest X-Ray 07/04/20 13:20 IMPRESSION: NO SIGNIFICANT RADIOGRAPHIC FINDING IN THE CHEST. Assessment and Plan - Diagnosis (1) Fever Qualifiers: Fever type: unspecified Qualified Code(s): R50.9 - Fever, unspecified Is this a current diagnosis for this admission?: Yes (2) Status post open reduction and internal fixation (ORIF) of fracture Is this a current diagnosis for this admission?: Yes (3) Dementia Qualifiers: Dementia type: Alzheimer's disease Alzheimer's disease onset: unspecified onset Dementia behavioral disturbance: with behavioral disturbance Qualified Code(s): G30.9 - Alzheimer's disease, unspecified; F02.81 - Dementia in other diseases classified elsewhere with behavioral disturbance Is this a current diagnosis for this admission?: Yes (4) Hip fracture, intertrochanteric Qualifiers: Encounter type: sequela Fracture type: closed Fracture alignment: displaced Laterality: left Qualified Code(s): S72.142S - Displaced intertrochanteric fracture of left femur, sequela Is this a current diagnosis for this admission?: Yes (5) Person under investigation for COVID-19 Is this a current diagnosis for this admission?: Yes - Plan Summary Summary: Chest x-ray shows no changes Urinalysis is negative No current source of infection noted We will hold off on antibiotics for now and only start if patient starts to get septic COVID result is pending Blood cultures have been obtained Continue PT and OT Pain control I will have orthopedics evaluate wound tomorrow morning given her recent ORIF on 06/26/2020 at [facility] However at the surgical site does not appear infected. Check KUB Check labs in the morning Bowel regimen. - Time Time Spent with patient: 25-34 minutes Anticipated Discharge Disposition: Intermediate Facility Anticipated Discharge Timeframe: when bed available
[2020-07-04] MEDS ORDERED: IBUPROFEN 600 MG TABLET PO PRN (19:05)
[2020-07-04] MEDS: NORMAL SALINE 1000 ML 1,000 ML IV PRN (21:30)
[2020-07-04] MEDS: ARIPIPRAZOLE 2 MG TABLET PO SCH (23:45)
--- NOTE | 2020-07-05 02:46 | EKG REPORT ---
SEVERITY:- ABNORMAL ECG - SINUS RHYTHM ANTEROLATERAL TWI MULTIPLE ATRIAL PREMATURE COMPLEXES : Confirmed by: Jimbo Cornejo MD 05-Jul-2020 02:45:48
[2020-07-05] MEDS: DIVALPROEX SODIUM 125 MG CAP.SPRINK PO SCH ×3 (05:02→22:11)
[2020-07-05 09:22] LABS: ABSOLUTE EOSINOPHILS # (AUTO) 0.1 10^3/uL (0.0-0.6); ABSOLUTE LYMPHOCYTES (AUTO) 1.7 10^3/uL (0.5-4.7); ABSOLUTE MONOCYTES (AUTO) 1.9 10^3/uL (0.1-1.4); ABSOLUTE NEUT (AUTO) 7.7 10^3/uL (1.7-8.2); BASOPHILS % (AUTO) 0.4 % (0-2); EOSINOPHILS % (AUTO) 0.8 % (0-6); HEMATOCRIT 27.4 % (36.0-47.0); HEMOGLOBIN 9.1 g/dL (12.0-15.5); LYMPHOCYTES % (AUTO) 14.9 % (13-45); MEAN CORPUSCULAR HEMOGLOBIN 30.3 pg (27.0-33.4); MEAN CORPUSCULAR HGB CONC 33.3 g/dL (32.0-36.0); MEAN CORPUSCULAR VOLUME 91 fl (80-97); MONOCYTES % (AUTO) 16.6 % (3-13); PLATELET COUNT 350 10^3/uL (150-450); RED BLOOD COUNT 3.01 10^6/uL (3.72-5.28); RED CELL DISTRIBUTION WIDTH 14.1 % (11.5-14.0); SEGMENTED NEUTROPHILS % (AUTO) 67.3 % (42-78); TOTAL CELLS COUNTED % (AUTO) 100 %; WHITE BLOOD COUNT 11.4 10^3/uL (4.0-10.5)
[2020-07-05] MEDS: LORAZEPAM 1 MG TABLET PO SCH (09:43)
[2020-07-05] MEDS: RIVAROXABAN 10 MG TABLET PO SCH (09:44)
[2020-07-05] MEDS: BUPROPION HCL 75 MG TABLET PO SCH (09:44)
[2020-07-05] MEDS: DOCUSATE SODIUM 100 MG CAPSULE PO SCH (09:44)
[2020-07-05] MEDS: PAROXETINE HCL 20 MG TABLET PO SCH (09:44)
[2020-07-05 09:49] LABS: ANION GAP 7 (5-19); BLOOD UREA NITROGEN 19 mg/dL (7-20); CALCIUM 8.7 mg/dL (8.4-10.2); CARBON DIOXIDE 25 mmol/L (22-30); CHLORIDE 105 mmol/L (98-107); GLUCOSE 91 mg/dL (75-110); POTASSIUM 4.3 mmol/L (3.6-5.0)
[2020-07-05] MEDS ORDERED: ONDANSETRON HCL INJ/PF 4 MG/2 ML SDV IV PRN (11:00)
--- NOTE | 2020-07-05 14:18 | PDOC PROGRESS REPORT ---
Subjective Progress Note for:: 07/05/20 Subjective:: Patient has no complaints this morning. States she feels well. Denies any abdominal pain. Denies nausea vomiting. Denies shortness of breath. Mild cough. Fevers seem to be breaking. We will continue to keep off antibiotics for now until we have any clear indication of a source of bacterial infection. Reason For Visit: FEVER Physical Exam Vital Signs: Temp Pulse Resp BP Pulse Ox 97.6 F 76 16 108/49 L 92 07/05/20 11:00 07/05/20 11:00 07/05/20 11:00 07/05/20 11:00 07/05/20 11:00 Intake & Output 07/04/20 07/05/20 07/06/20 06:59 06:59 06:59 Intake Total 120 Balance 120 Weight 77.6 kg 77.6 kg General appearance: PRESENT: no acute distress, cooperative Neck exam: ABSENT: JVD Respiratory exam: PRESENT: symmetrical, unlabored. ABSENT: tachypnea, wheezes Cardiovascular exam: PRESENT: RRR, +S1, +S2. ABSENT: tachycardia GI/Abdominal exam: PRESENT: soft. ABSENT: rebound, rigid, tenderness Neurological exam: PRESENT: alert, awake, oriented to person. ABSENT: oriented to place, oriented to time Results Laboratory Results: 07/05/20 08:09 07/05/20 08:09 07/04/20 07/04/20 07/04/20 14:05 14:05 14:05 WBC 14.3 H RBC 3.35 L Hgb 10.1 L Hct 29.9 L MCV 89 MCH 30.2 MCHC 33.8 RDW 14.4 H Plt Count 405 Seg Neutrophils % 71.8 Sodium 133.6 L Potassium 4.3 Chloride 101 Carbon Dioxide 24 Anion Gap 9 BUN 16 Creatinine 0.70 Est GFR ( Amer) > 60 Glucose 136 H Lactic Acid Calcium 8.8 Total Bilirubin 0.7 AST 19 Alkaline Phosphatase 71 Total Protein 5.8 L Albumin 2.7 L Urine Color YELLOW Urine Appearance SLIGHTLY-CLOUDY Urine pH 7.0 Ur Specific [place] 1.015 Urine Protein 30 H Urine Glucose (UA) NEGATIVE Urine Ketones TRACE H Urine Blood SMALL H Urine Nitrite NEGATIVE Ur Leukocyte Esterase NEGATIVE Urine WBC (Auto) 4 Urine RBC (Auto) 14 07/04/20 07/05/20 07/05/20 17:45 08:09 08:09 WBC 11.4 H RBC 3.01 L Hgb 9.1 L Hct 27.4 L MCV 91 MCH 30.3 MCHC 33.3 RDW 14.1 H Plt Count 350 Seg Neutrophils % 67.3 Sodium 137.3 Potassium 4.3 Chloride 105 Carbon Dioxide 25 Anion Gap 7 BUN 19 Creatinine 0.56 Est GFR ( Amer) > 60 Glucose 91 Lactic Acid 0.9 Calcium 8.7 Total Bilirubin AST Alkaline Phosphatase Total Protein Albumin Urine Color Urine Appearance Urine pH Ur Specific [place] Urine Protein Urine Glucose (UA) Urine Ketones Urine Blood Urine Nitrite Ur Leukocyte Esterase Urine WBC (Auto) Urine RBC (Auto) 07/04/20 07/04/20 14:05 14:05 Creatine Kinase 28 L Troponin I < 0.012 Impressions: Pelvis X-Ray 07/02/20 10:50 IMPRESSION: Status post left femoral neck ORIF. Age-indeterminate avulsion injury of the left lesser trochanter. Abdomen/Pelvis CT 07/02/20 13:22 IMPRESSION: 1. Nonobstructing nephrolithiasis. No evidence of obstructive uropathy or acute intra-abdominal infectious/inflammatory process. 2. Status post ORIF of the left femur with age indeterminate avulsion injury of the lesser trochanter ; recommend correlation for mechanism of injury and point tenderness. Given the lack of surrounding soft tissue findings, favor this to be a chronic injury. 3. Partially imaged left breast nodule ; no local mammograms for the purposes of direct comparison. Recommend correlate with outside studies or obtain routi nc screening mammogram if none have been performed. Chest X-Ray 07/04/20 13:20 IMPRESSION: NO SIGNIFICANT RADIOGRAPHIC FINDING IN THE CHEST. Assessment and Plan - Diagnosis (1) Fever Qualifiers: Fever type: unspecified Qualified Code(s): R50.9 - Fever, unspecified Is this a current diagnosis for this admission?: Yes (2) Status post open reduction and internal fixation (ORIF) of fracture Is this a current diagnosis for this admission?: Yes (3) Dementia Qualifiers: Dementia type: Alzheimer's disease Alzheimer's disease onset: unspecified onset Dementia behavioral disturbance: with behavioral disturbance Qualified Code(s): G30.9 - Alzheimer's disease, unspecified; F02.81 - Dementia in other diseases classified elsewhere with behavioral disturbance Is this a current diagnosis for this admission?: Yes (4) Hip fracture, intertrochanteric Qualifiers: Encounter type: sequela Fracture type: closed Fracture alignment: displac ed Laterality: left Qualified Code(s): S72.142S - Displaced intertrochanteric fracture of left femur, sequela Is this a current diagnosis for this admission?: Yes (5) Person under investigation for COVID-19 Is this a current diagnosis for this admission?: Yes - Plan Summary Summary: Chest x-ray shows no changes Urinalysis is negative No current source of infection noted We will hold off on antibiotics for now and only start if patient starts to get septic COVID result is pending Blood cultures have been obtained Continue PT and OT Pain control I will have orthopedics evaluate wound tomorrow morning given her recent ORIF on 06/26/2020 at [facility] However at the surgical site does not appear infected. Check labs in the morning Bowel regimen. 07/05/2020 Fevers seem to be breaking. I did examine patient's left hip surgical incision site which looks fine. However I spoke with Dr. Vargas to take a look at it as well. So far no clear source of bacterial infection so we will continue to hold off on antibiotics for now except of course if patient starts showing signs of sepsis. COVID-19 test is negative Awaiting blood culture results Patient to work with physical therapy to see if she is adequate to go back to [facility] versus placement at SNF. Discharge planning consulted. - Time Time Spent with patient: Less than 15 minutes Anticipated Discharge Disposition: Long Term Facility Anticipated Discharge Timeframe: 24-48hrs
[2020-07-05] MEDS: NORMAL SALINE 1000 ML 1,000 ML IV PRN (14:55)
[2020-07-05] MEDS: LORAZEPAM 0.5 MG TABLET PO SCH (17:10)
[2020-07-05] MEDS: ARIPIPRAZOLE 2 MG TABLET PO SCH (22:11)
[2020-07-06] MEDS: NORMAL SALINE 1000 ML 1,000 ML IV PRN ×2 (05:08→17:43)
[2020-07-06] MEDS: DIVALPROEX SODIUM 125 MG CAP.SPRINK PO SCH ×3 (05:08→22:06)
[2020-07-06 06:40] LABS: HEMATOCRIT 26.4 % (36.0-47.0); HEMOGLOBIN 8.8 g/dL (12.0-15.5); MEAN CORPUSCULAR HEMOGLOBIN 30.2 pg (27.0-33.4); MEAN CORPUSCULAR HGB CONC 33.3 g/dL (32.0-36.0); MEAN CORPUSCULAR VOLUME 91 fl (80-97); PLATELET COUNT 349 10^3/uL (150-450); RED BLOOD COUNT 2.91 10^6/uL (3.72-5.28); RED CELL DISTRIBUTION WIDTH 14.3 % (11.5-14.0); WHITE BLOOD COUNT 9.9 10^3/uL (4.0-10.5)
--- NOTE | 2020-07-06 08:05 | PDOC CONSULTATION ---
Consultation Consult Date: 07/06/20 Provider Consulted: BECCA VASQUEZ History of Present Illness Admission Date/PCP: 07/04/20 19:12 JOHN HOPKINS Patient complains of: Left hip pain History of Present Illness: LUCHO BROWN is a 79 year old female who has history of dementia and is a poor historian. She was brought to the emergency room on 07/01/2020 due to difficulty with patient care after undergoing left hip cephalo-medullary nail. Patient states she does have pain in her hip and difficulty with ambulation otherwise unable to fully obtain adequate HPI. Past Medical History Cardiac Medical History: Reports: Hyperlipidema, Hypertension Pulmonary Medical History: Reports: Chronic Obstructive Pulmonary Disease (COPD) Denies: Respiratory Failure Neurological Medical History: Denies: Seizures Endocrine Medical History: Denies: Diabetes Mellitus Type 1, Diabetes Mellitus Type 2, Hyperthyroidism, Hypothyroidism GI Medical History: Denies: Cirrhosis, Hepatitis Musculoskeltal Medical History: Denies: Fibromyalgia, Gout Skin Medical History: Denies: Eczema, Psoriasis Psychiatric Medical History: Reports: Dementia, Depression Hematology: Reports: Anemia Denies: Bleeding Tendencies Past Surgical History Past Surgical History: Reports: Appendectomy, Hysterectomy, Orthopedic Surgery - L trochanter, Tonsillectomy Social History Smoking Status: Unknown if Ever Smoked Frequency of Alcohol Use: None Hx Recreational Drug Use: No Drugs: None Hx Prescription Drug Abuse: No Family History Family History: Other - No family history is available. Unable to obtain due to mental status. Parental Family History Reviewed: No Children Family History Reviewed: No Sibling(s) Family History Reviewed.: No Medication/Allergy Home Medications: Aripiprazole 2 mg PO QHS 10/10/19 Bupropion HCl [Wellbutrin 75 mg Tablet] 75 mg PO DAILY 10/10/19 Divalproex Sodium [Depakote Sprinkle] 250 mg PO Q8 10/10/19 Paroxetine HCl [Paxil 20 mg Tablet] 20 mg PO DAILY 10/10/19 Risperidone [Risperdal 1 mg Tablet] 1 mg PO Q8HP PRN 10/10/19 Acetaminophen [Pain Relief Extra Strength] 1,000 mg PO Q8HP PRN 06/09/20 Albuterol Sulfate [Albuterol Sulfate Hfa] 2 puff IH Q6HP PRN 06/09/20 Ciprofloxacin HCl [Cipro 500 mg Tablet] 250 mg PO BID MDD LAST DOSE JUN. 07/01/20 Lorazepam [Ativan 1 mg Tablet] 0.5 mg PO BID 07/01/20 Rivaroxaban [Xarelto 10 mg Tablet] 10 mg PO DAILY MDD THRU 07/01/20 Allergies/Adverse Reactions: No Known Allergies Allergy (Verified 06/08/20 22:22) Review of Systems ROS unobtainable: Due to mental status Physical Exam Vital Signs: Temp Pulse Resp BP Pulse Ox 98.1 F 106 H 16 111/51 L 95 07/05/20 23:50 07/05/20 23:50 07/05/20 23:50 07/05/20 23:50 07/05/20 23:50 Intake & Output 07/05/20 07/06/20 07/07/20 06:59 06:59 06:59 Intake Total 1500 Balance 1500 Weight 77.6 kg 77.6 kg General appearance: PRESENT: no acute distress, cooperative, well-developed, well-nourished Head exam: PRESENT: atraumatic, normocephalic Eye exam: PRESENT: conjunctiva pink, EOMI, PERRLA. ABSENT: scleral icterus Ear exam: PRESENT: other - Difficulty with hearing Mouth exam: PRESENT: moist, tongue midline Teeth exam: PRESENT: poor dentation Neck exam: PRESENT: full ROM. ABSENT: carotid bruit, JVD, lymphadenopathy, thyromegaly Respiratory exam: PRESENT: unlabored Cardiovascular exam: PRESENT: RRR. ABSENT: diastolic murmur, rubs, systolic murmur Pulses: PRESENT: normal dorsalis pedis pul, +2 pedal pulses bilateral Vascular exam: PRESENT: normal capillary refill GI/Abdominal exam: PRESENT: normal bowel sounds, soft. ABSENT: distended, guarding, mass, organolmegaly, rebound, tenderness Rectal exam: PRESENT: deferred Musculoskeletal exam: PRESENT: other - Left hip: Dressing clean/dry/intact no erythema or drainage. Mild thigh swelling without change, intact plantarflexion/dorsiflexion. No sensory deficits. No calf tenderness. Neurological exam: PRESENT: alert, awake, CN II-XII grossly intact, other - Disoriented to time place and situation. ABSENT: motor sensory deficit Psychiatric exam: PRESENT: appropriate affect, normal mood. ABSENT: homicidal ideation, suicidal ideation Skin exam: PRESENT: dry, intact, warm. ABSENT: cyanosis, rash Results Laboratory Results: 07/06/20 05:58 07/05/20 08:09 07/05/20 07/05/20 07/06/20 08:09 08:09 05:58 WBC 11.4 H 9.9 RBC 3.01 L 2.91 L Hgb 9.1 L 8.8 L Hct 27.4 L 26.4 L MCV 91 91 MCH 30.3 30.2 MCHC 33.3 33.3 RDW 14.1 H 14.3 H Plt Count 350 349 Seg Neutrophils % 67.3 Sodium 137.3 Potassium 4.3 Chloride 105 Carbon Dioxide 25 Anion Gap 7 BUN 19 Creatinine 0.56 Est GFR ( Amer) > 60 Glucose 91 Calcium 8.7 07/04/20 07/04/20 14:05 14:05 Creatine Kinase 28 L Troponin I < 0.012 Impressions: Pelvis X-Ray 07/02/20 10:50 IMPRESSION: Status post left femoral neck ORIF. Age-indeterminate avulsion i njury of the left lesser trochanter. Abdomen/Pelvis CT 07/02/20 13:22 IMPRESSION: 1. Nonobstructing nephrolithiasis. No evidence of obstructive uropathy or acute intra-abdominal infectious/inflammatory process. 2. Status post ORIF of the left femur with age indeterminate avulsion injury of the lesser trochanter ; recommend correlation for mechanism of injury and point tenderness. Given the lack of surrounding soft tissue findings, favor this to be a chronic injury. 3. Partially imaged left breast nodule ; no local mammograms for the purposes of direct comparison. Recommend correlate with outside studies or obtain routine screening mammogram if none have been performed. Chest X-Ray 07/04/20 13:20 IMPRESSION: NO SIGNIFICANT RADIOGRAPHIC FINDING IN THE CHEST. Status: Image reviewed by - I have reviewed patient's CT scan and radiographs consistent with cephalo-medullary nail left intertrochanteric fracture no evidence of hardware malalignment. Maintained reduction within acceptable posit ion. Assessment & Plan - Diagnosis (1) Status post open reduction and internal fixation (ORIF) of fracture Is this a current diagnosis for this admission?: Yes Plan: Patient is status post left cephalo-medullary nail intratrochanteric fracture at an outside facility. Radiographs and CT scan have been reviewed which demonstrate no evidence of abnormality. Wounds are clean/dry/intact there is no sign or symptoms to suggest infection or cause of patient's fevers. At this point I have recommended continuing physical therapy with weightbearing as tolerated. Patient should follow-up with operating surgeon postoperatively. We will sign off at this time feel free to contact us with further issues.
[2020-07-06] MEDS: DOCUSATE SODIUM 100 MG CAPSULE PO SCH (10:07)
[2020-07-06] MEDS: BUPROPION HCL 75 MG TABLET PO SCH (10:07)
[2020-07-06] MEDS: LORAZEPAM 0.5 MG TABLET PO SCH ×2 (10:07→17:11)
[2020-07-06] MEDS: RIVAROXABAN 10 MG TABLET PO SCH (10:07)
[2020-07-06] MEDS: PAROXETINE HCL 20 MG TABLET PO SCH (10:07)
--- NOTE | 2020-07-06 21:32 | PDOC PROGRESS REPORT ---
Subjective Progress Note for:: 07/06/20 Subjective:: LUCHO BROWN is a 79 year old female with history of recent surgery of the left hip ORIF, recurrent UTI, and dementia who presents to the hospital from [facility] on 07/01/2020. Has been a social hold in the ER after patient's presented because of difficulty with care for patient and [facility] given her recent ORIF and her demented state. She has been awaiting placement at nursing facility for rehab. Hospitalist service consulted today because patient has been spiking fevers. Work-up currently has not revealed any source of infection with negative urinalysis, unchanged chest x-ray and pending COVID-19 resolved. Patient really not able to give me much in terms of subjective. D2 hospital stay. She was seen and examined at bedside. She has baseline dementia so she is unable to say any specific complains but she said no when asked if she has pain on her hip or her belly. She has not had a fever for 2 days now and WBC count is back to normal. Ortho assessed her wound and reviewed her scans and stated that there does not seem to be anysign of infection on her operative site. Blood cultures have been negative as well. COVID 19 negative Reason For Visit: FEVER Physical Exam Vital Signs: Temp Pulse Resp BP Pulse Ox 99.2 F 80 18 115/50 L 98 07/06/20 20:02 07/06/20 20:02 07/06/20 16:00 07/06/20 20:02 07/06/20 20:02 Intake & Output 07/05/20 07/06/20 07/07/20 06:59 06:59 06:59 Intake Total 1500 1780 Balance 1500 1780 Weight 77.6 kg 77.6 kg General appearance: PRESENT: no acute distress, cooperative, thin Head exam: PRESENT: atraumatic, normocephalic Eye exam: PRESENT: EOMI, PERRLA Ear exam: PRESENT: normal external ear exam Mouth exam: PRESENT: moist Neck exam: PRESENT: full ROM. ABSENT: meningismus Respiratory exam: PRESENT: clear to auscultation co[place], symmetrical. ABSENT: rales, unlabored Cardiovascular exam: PRESENT: RRR, +S1, +S2 Pulses: PRESENT: normal radial pulses GI/Abdominal exam: PRESENT: normal bowel sounds, soft. ABSENT: rebound, tenderness Extremities exam: PRESENT: other - Dressing over left hip area clean dry, no tenderness or erythema Neurological exam: PRESENT: other - Patient has baseline dementia able to answer yes or no sometimes Psychiatric exam: PRESENT: normal mood Skin exam: PRESENT: normal color Results Laboratory Results: 07/06/20 05:58 07/05/20 08:09 07/06/20 05:58 WBC 9.9 RBC 2.91 L Hgb 8.8 L Hct 26.4 L MCV 91 MCH 30.2 MCHC 33.3 RDW 14.3 H Plt Count 349 07/04/20 07/04/20 14:05 14:05 Creatine Kinase 28 L Troponin I < 0.012 Impressions: Pelvis X-Ray 07/02/20 10:50 IMPRESSION: Status post left femoral neck ORIF. Age-indeterminate avulsion injury of the left lesser trochanter. Abdomen/Pelvis CT 07/02/20 13:22 IMPRESSION: 1. Nonobstructing nephrolithiasis. No evidence of obstructive uropathy or acute intra-abdominal infectious/inflammatory process. 2. Status post ORIF of the left femur with age indeterminate avulsion injury of the lesser trochanter ; recommend correlation for mechanism of injury and point tenderness. Given the lack of surrounding soft tissue findings, favor this to be a chronic injury. 3. Partially imaged left breast nodule ; no local mammograms for the purposes of direct comparison. Recommend correlate with outside studies or obtain routine screening mammogram if none have been performed. Chest X-Ray 07/04/20 13:20 IMPRESSION: NO SIGNIFICANT RADIOGRAPHIC FINDING IN THE CHEST. Assessment and Plan - Diagnosis (1) Fever Qualifiers: Fever type: unspecified Qualified Code(s): R50.9 - Fever, unspecified Is this a current diagnosis for this admission?: Yes Plan: -Noted to have high-grade fever on admission -She has been afebrile for at least 2 days now -WBC back to normal with no antibiotics - blood cultures negative -Urine negative for UTI -COVID test negative -Reason for fever unlikely infectious in origin -Plan to discharge back to [facility] (2) Status post open reduction and internal fixation (ORIF) of fracture Is this a current diagnosis for this admission?: Yes Plan: -Status post left hip ORIF -CT scan did not show any soft tissue findings -Wound evaluated by Ortho no concern for infection -Would have to follow-up with the Ortho surgeon who did her surgery -PT/OT following (3) Dementia Qualifiers: Dementia type: Alzheimer's disease Alzheimer's disease onset: unspecified onset Dementia behavioral disturbance: with behavioral disturbance Qualified Code(s): G30.9 - Alzheimer's disease, unspecified; F02.81 - Dementia in other diseases classified elsewhere with behavioral disturbance Is this a current diagnosis for this admission?: Yes Plan: Has baseline dementia No acute intervention (4) Person under investigation for COVID-19 Is this a current diagnosis for this admission?: Yes Plan: -COVID test negative (5) Hip fracture, intertrochanteric Qualifiers: Encounter type: subsequent encounter Fracture type: closed Is this a current diagnosis for this admission?: Yes Plan: -Status post ORIF in another hospital - Time Time Spent with patient: 15-24 minutes Anticipated Discharge Disposition: Retirement Facility Anticipated Discharge Timeframe: within 48 hours
[2020-07-06] MEDS: ARIPIPRAZOLE 2 MG TABLET PO SCH (22:06)
[2020-07-07] MEDS: NORMAL SALINE 1000 ML 1,000 ML IV PRN ×2 (04:52→17:29)
[2020-07-07] MEDS: DIVALPROEX SODIUM 125 MG CAP.SPRINK PO SCH ×3 (06:30→22:53)
[2020-07-07] MEDS: PAROXETINE HCL 20 MG TABLET PO SCH (10:15)
[2020-07-07] MEDS: LORAZEPAM 0.5 MG TABLET PO SCH ×2 (10:15→17:28)
[2020-07-07] MEDS: BUPROPION HCL 75 MG TABLET PO SCH (10:15)
[2020-07-07] MEDS: DOCUSATE SODIUM 100 MG CAPSULE PO SCH (10:15)
[2020-07-07] MEDS: RIVAROXABAN 10 MG TABLET PO SCH (11:45)
[2020-07-07] MEDS ORDERED: NORMAL SALINE 500 ML IV ONE (12:00)
--- NOTE | 2020-07-07 12:39 | PDOC DISCHARGE SUMMARY ---
Impression - Admit/DC Date/PCP Admission Date/Primary Care Provider: 07/04/20 19:12 JOHN HOPKINS Discharge Date: 07/07/20 - Discharge Diagnosis (1) Fever Is this a current diagnosis for this admission?: Yes (2) Status post open reduction and internal fixation (ORIF) of fracture Is this a current diagnosis for this admission?: Yes (3) Dementia Is this a current diagnosis for this admission?: Yes (4) Person under investigation for COVID-19 Is this a current diagnosis for this admission?: Yes (5) Hip fracture, intertrochanteric Is this a current diagnosis for this admission?: Yes - Additional Information Resuscitation Status: Full Code Discharge Diet: As Tolerated Discharge Activity: Activity As Tolerated Referrals: LUCIANO RODRIGUEZ FNP-C [Primary Care Provider] - Prescriptions: Docusate Sodium [Colace 100 mg Capsule] 100 mg PO DAILY 30 Days #30 capsule Home Medications: Aripiprazole 2 mg PO QHS 10/10/19 Bupropion HCl [Wellbutrin 75 mg Tablet] 75 mg PO DAILY 10/10/19 Divalproex Sodium [Depakote Sprinkle] 250 mg PO Q8 10/10/19 Paroxetine HCl [Paxil 20 mg Tablet] 20 mg PO DAILY 10/10/19 Risperidone [Risperdal 1 mg Tablet] 1 mg PO Q8HP PRN 10/10/19 Acetaminophen [Pain Relief Extra Strength] 1,000 mg PO Q8HP PRN 06/09/20 Albuterol Sulfate [Albuterol Sulfate Hfa] 2 puff IH Q6HP PRN 06/09/20 Lorazepam [Ativan 1 mg Tablet] 0.5 mg PO BID 07/01/20 Rivaroxaban [Xarelto 10 mg Tablet] 10 mg PO DAILY MDD THRU JUL. 07/01/20 Docusate Sodium [Colace 100 mg Capsule] 100 mg PO DAILY 30 Days #30 capsule 07/07/20 Rivaroxaban [Xarelto 10 mg Tablet] 10 mg PO DAILY tablet 07/07/20 History of Present Illiness History of Present Illness: LUCHO BROWN is a 79 year old female with history of recent surgery of the left hip ORIF, recurrent UTI, and dementia who presents to the hospital from [facility] on 07/01/2020. Has been a social hold in the ER after patient's presented because of difficulty with care for patient and [facility] given her recent ORIF and her demented state. She has been awaiting placement at nursing facility for rehab. Hospitalist service consulted today because patient has been spiking fevers. Work-up currently has not revealed any source of infection with negative urinalysis, unchanged chest x-ray and pending COVID-19 resolved. Patient really not able to give me much in terms of subjective. Hospital Course Hospital Course: Work up for the cause of fever was unrevealing. CXR was normal, urinalysis did not show any UTI. Orthopedic surgeon was consulted to assess her post ORIF wound and it is in their opinion that she does not have signs of infection. COVID negative. Blood culture was negative. Her WBC count went down and fever broke without any antibiotics. Physical Exam Vital Signs: Temp Pulse Resp BP Pulse Ox 97.7 F 82 17 96/52 L 95 07/07/20 11:32 07/07/20 11:32 07/07/20 11:32 07/07/20 11:32 07/07/20 11:32 Intake & Output 07/06/20 07/07/20 07/08/20 06:59 06:59 06:59 Intake Total 1500 2800 260 Balance 1500 2800 260 Weight 77.6 kg 77.6 kg General appearance: PRESENT: no acute distress, cooperative, hard of hearing Head exam: PRESENT: atraumatic, normocephalic Eye exam: PRESENT: EOMI, PERRLA Mouth exam: PRESENT: moist Neck exam: PRESENT: full ROM Respiratory exam: PRESENT: clear to auscultation coleman, symmetrical, unlabored Cardiovascular exam: PRESENT: RRR, +S1, +S2 GI/Abdominal exam: PRESENT: normal bowel sounds, soft. ABSENT: rebound, tenderness Extremities exam: PRESENT: other - limited ROM left hip. Left hip post operative site with dressing, clean, dry Neurological exam: PRESENT: alert, awake - has baseline dementia, other Psychiatric exam: PRESENT: normal mood Results Laboratory Results: WBC 9.9 10^3/uL (4.0-10.5) 07/06/20 05:58 RBC 2.91 10^6/uL (3.72-5.28) L 07/06/20 05:58 Hgb 8.8 g/dL (12.0-15.5) L 07/06/20 05:58 Hct 26.4 % (36.0-47.0) L 07/06/20 05:58 MCV 91 fl (80-97) 07/06/20 05:58 MCH 30.2 pg (27.0-33.4) 07/06/20 05:58 MCHC 33.3 g/dL (32.0-36.0) 07/06/20 05:58 RDW 14.3 % (11.5-14.0) H 07/06/20 05:58 Plt Count 349 10^3/uL (150-450) 07/06/20 05:58 Lymph % (Auto) 14.9 % (13-45) 07/05/20 08:09 Emmet % (Auto) 16.6 % (3-13) H 07/05/20 08:09 Eos % (Auto) 0.8 % (0-6) 07/05/20 08:09 Baso % (Auto) 0.4 % (0-2) 07/05/20 08:09 Absolute Neuts (auto) 7.7 10^3/uL (1.7-8.2) 07/05/20 08:09 Absolute Lymphs (auto) 1.7 10^3/uL (0.5-4.7) 07/05/20 08:09 Absolute Monos (auto) 1.9 10^3/uL (0.1-1.4) H 07/05/20 08:09 Absolute Eos (auto) 0.1 10^3/uL (0.0-0.6) 07/05/20 08:09 Absolute Basos (auto) 0.0 10^3/uL (0.0-0.2) 07/05/20 08:09 Seg Neutrophils % 67.3 % (42-78) 07/05/20 08:09 Sodium 137.3 mmol/L (137-145) 07/05/20 08:09 Potassium 4.3 mmol/L (3.6-5.0) 07/05/20 08:09 Chloride 105 mmol/L (98-107) 07/05/20 08:09 Carbon Dioxide 25 mmol/L (22-30) 07/05/20 08:09 Anion Gap 7 (5-19) 07/05/20 08:09 BUN 19 mg/dL (7-20) 07/05/20 08:09 Creatinine 0.56 mg/dL (0.52-1.25) 07/05/20 08:09 Est GFR ( Amer) > 60 (>60) 07/05/20 08:09 Est GFR (MDRD) Non-Af > 60 (>60) 07/05/20 08:09 Glucose 91 mg/dL (75-110) 07/05/20 08:09 Lactic Acid 0.9 mmol/L (0.7-2.1) 07/04/20 17:45 Calcium 8.7 mg/dL (8.4-10.2) 07/05/20 08:09 Total Bilirubin 0.7 mg/dL (0.2-1.3) 07/04/20 14:05 Direct Bilirubin 0.3 mg/dL (0.0-0.4) 07/04/20 14:05 Neonat Total Bilirubin Not Reportable 07/04/20 14:05 Neonat Direct Bilirubin Not Reportable 07/04/20 14:05 Neonat Indirect Bili Not Reportable 07/04/20 14:05 AST 19 U/L (14-36) 07/04/20 14:05 ALT 11 U/L (<35) 07/04/20 14:05 Alkaline Phosphatase 71 U/L (38-126) 07/04/20 14:05 Creatine Kinase 28 U/L (30-135) L 07/04/20 14:05 Troponin I < 0.012 ng/mL 07/04/20 14:05 Total Protein 5.8 g/dL (6.3-8.2) L 07/04/20 14:05 Albumin 2.7 g/dL (3.5-5.0) L 07/04/20 14:05 Urine Color YELLOW 07/04/20 14:05 Urine Appearance SLIGHTLY-CLOUDY 07/04/20 14:05 Urine pH 7.0 (5.0-9.0) 07/04/20 14:05 Ur Specific Mineral 1.015 07/04/20 14:05 Urine Protein 30 mg/dL (NEGATIVE) H 07/04/20 14:05 Urine Glucose (UA) NEGATIVE mg/dL (NEGATIVE) 07/04/20 14:05 Urine Ketones TRACE mg/dL (NEGATIVE) H 07/04/20 14:05 Urine Blood SMALL (NEGATIVE) H 07/04/20 14:05 Urine Nitrite NEGATIVE (NEGATIVE) 07/04/20 14:05 Urine Nitrite (Reflex) NEGATIVE (NEGATIVE) 07/01/20 15:33 Urine Bilirubin NEGATIVE (NEGATIVE) 07/04/20 14:05 Urine Urobilinogen 4.0 mg/dL (<2.0) H 07/04/20 14:05 Ur Leukocyte Esterase NEGATIVE (NEGATIVE) 07/04/20 14:05 Leukocyte Esterase Rfl NEGATIVE (NEGATIVE) 07/01/20 15:33 Urine WBC (Auto) 4 /HPF 07/04/20 14:05 Urine RBC (Auto) 14 /HPF 07/04/20 14:05 Urine WBC (Reflex) < 1 /HPF 07/01/20 15:33 Squamous Epi Cells Auto <1 /HPF 07/01/20 15:33 Amorphous Sediment Auto TRACE /HPF 07/04/20 14:05 Urine Mucus (Auto) RARE /LPF 07/04/20 14:05 Urine Ascorbic Acid NEGATIVE (NEGATIVE) 07/04/20 14:05 Valproic Acid 43.0 ug/mL (50.0-120.0) L 07/02/20 10:58 COVID-19 Source NASOPHARYNGEAL 07/03/20 19:30 COVID-19 (RAJESH) NOT DETECTED 07/03/20 19:30 07/04/20 14:05 Troponin I < 0.012 Impressions: Pelvis X-Ray 07/02/20 10:50 IMPRESSION: Status post left femoral neck ORIF. Age-indeterminate avulsion injury of the left lesser trochanter. Abdomen/Pelvis CT 07/02/20 13:22 IMPRESSION: 1. Nonobstructing nephrolithiasis. No evidence of obstructive uropathy or acute intra-abdominal infectious/inflammatory process. 2. Status post ORIF of the left femur with age indeterminate avulsion injury of the lesser trochanter ; recommend correlation for mechanism of injury and point tenderness. Given the lack of surrounding soft tissue findings, favor this to be a chronic injury. 3. Partially imaged left breast nodule ; no local mammograms for the purposes of direct comparison. Recommend correlate with outside studies or obtain routine screening mammogram if none have been performed. Chest X-Ray 07/04/20 13:20 IMPRESSION: NO SIGNIFICANT RADIOGRAPHIC FINDING IN THE CHEST. Plan Plan of Treatment: - Plan is to send her home to [facility] to continue rehab Time Spent: Less than 30 Minutes Stroke Is this a Stroke Patient?: No Acute Heart Failure Is this a Heart Failure Patient?: No
[2020-07-07] MEDS: ARIPIPRAZOLE 2 MG TABLET PO SCH (22:53)
[2020-07-08] MEDS: DIVALPROEX SODIUM 125 MG CAP.SPRINK PO SCH ×3 (05:35→22:31)
[2020-07-08] MEDS: RIVAROXABAN 10 MG TABLET PO SCH (10:23)
[2020-07-08] MEDS: DOCUSATE SODIUM 100 MG CAPSULE PO SCH (10:24)
[2020-07-08] MEDS: BUPROPION HCL 75 MG TABLET PO SCH (10:24)
[2020-07-08] MEDS: PAROXETINE HCL 20 MG TABLET PO SCH (10:24)
[2020-07-08] MEDS: LORAZEPAM 0.5 MG TABLET PO SCH ×2 (10:24→18:00)
[2020-07-08] MEDS: DEXTROSE 5%-LACTATED RINGERS 1,000 ML IV PRN ×2 (11:56→22:39)
--- NOTE | 2020-07-08 19:26 | PDOC PROGRESS REPORT ---
Subjective Progress Note for:: 07/08/20 Subjective:: LUCHO BROWN is a 79 year old female with history of recent surgery of the left hip ORIF, recurrent UTI, and dementia who presents to the hospital from [facility] on 07/01/2020. Has been a social hold in the ER after patient's presented because of difficulty with care for patient and [facility] given her recent ORIF and her demented state. She has been awaiting placement at nursing facility for rehab. Hospitalist service consulted today because patient has been spiking fevers. Work-up currently has not revealed any source of infection with negative urinalysis, unchanged chest x-ray and pending COVID-19 resolved. Patient really not able to give me much in terms of subjective. D2 hospital stay. She was seen and examined at bedside. She has baseline dementia so she is unable to say any specific complains but she said no when asked if she has pain on her hip or her belly. She has not had a fever for 2 days now and WBC count is back to normal. Ortho assessed her wound and reviewed her scans and stated that there does not seem to be any sign of infection on her operative site. Blood cultures have been negative as well. COVID 19 negative. D3 hospital stay she remained stable and will be discharged back to [facility]. D4 hospital stay. She was not discharged yesterday because her daughter wishes for her to go to [facility]. She remains afebrile with no white count. Plan is to discharge her tomorrow. Reason For Visit: FEVER Physical Exam Vital Signs: Temp Pulse Resp BP Pulse Ox 98.6 F 69 16 114/49 L 97 07/08/20 16:00 07/08/20 16:00 07/08/20 16:00 07/08/20 16:00 07/08/20 16:00 Intake & Output 07/07/20 07/08/20 07/09/20 06:59 06:59 06:59 Intake Total 2800 1760 1000 Balance 2800 1760 1000 Weight 77.6 kg 82 kg General appearance: PRESENT: no acute distress, cooperative, hard of hearing Head exam: PRESENT: atraumatic, normocephalic Eye exam: PRESENT: EOMI, PERRLA Ear exam: PRESENT: normal external ear exam Mouth exam: PRESENT: moist Neck exam: PRESENT: full ROM Respiratory exam: PRESENT: clear to auscultation coleman, symmetrical, unlabored Vascular exam: PRESENT: normal capillary refill GI/Abdominal exam: PRESENT: normal bowel sounds, soft. ABSENT: rebound, tenderness Musculoskeletal exam: PRESENT: other - limited ROM most limbs especially left leg 2/2 recent ORIF Neurological exam: PRESENT: alert, awake, other - has baseline dementia Psychiatric exam: PRESENT: normal mood Results Laboratory Results: 07/06/20 05:58 07/05/20 08:09 07/04/20 07/04/20 14:05 14:05 Creatine Kinase 28 L Troponin I < 0.012 Impressions: Pelvis X-Ray 07/02/20 10:50 IMPRESSION: Status post left femoral neck ORIF. Age-indeterminate avulsion injury of the left lesser trochanter. Abdomen/Pelvis CT 07/02/20 13:22 IMPRESSION: 1. Nonobstructing nephrolithiasis. No evidence of obstructive uropathy or acute intra-abdominal infectious/inflammatory process. 2. Status post ORIF of the left femur with age indeterminate avulsion injury of the lesser trochanter ; recommend correlation for mechanism of injury and point tenderness. Given the lack of surrounding soft tissue findings, favor this to be a chronic injury. 3. Partially imaged left breast nodule ; no local mammograms for the purposes of direct comparison. Recommend correlate with outside studies or obtain routine screening mammogram if none have been performed. Chest X-Ray 07/04/20 13:20 IMPRESSION: NO SIGNIFICANT RADIOGRAPHIC FINDING IN THE CHEST. Assessment and Plan - Diagnosis (1) Fever Qualifiers: Fever type: unspecified Qualified Code(s): R50.9 - Fever, unspecified Is this a current diagnosis for this admission?: Yes Plan: -Noted to have high-grade fever on admission -She has been afebrile for at least 2 days now -WBC back to normal with no antibiotics - blood cultures negative -Urine negative for UTI -COVID test negative -Reason for fever unlikely infectious in origin -Plan to discharge back to [facility] (2) Status post open reduction and internal fixation (ORIF) of fracture Is this a current diagnosis for this admission?: Yes Plan: -Status post left hip ORIF -CT scan did not show any soft tissue findings -Wound evaluated by Ortho no concern for infection -Would have to follow-up with the Ortho surgeon who did her surgery -PT/OT following (3) Dementia Qualifiers: Dementia type: Alzheimer's disease Alzheimer's disease onset: unspecified onset Dementia behavioral disturbance: with behavioral disturbance Qualified Code(s): G30.9 - Alzheimer's disease, unspecified; F02.81 - Dementia in other diseases classified elsewhere with behavioral disturbance Is this a current diagnosis for this admission?: Yes Plan: Has baseline dementia No acute intervention (4) Person under investigation for COVID-19 Is this a current diagnosis for this admission?: Yes Plan: -COVID test negative (5) Hip fracture, intertrochanteric Qualifiers: Encounter type: subsequent encounter Fracture type: closed Is this a current diagnosis for this admission?: Yes Plan: -Status post ORIF in another hospital - PT/OT to see - Time Time Spent with patient: 25-34 minutes Anticipated Discharge Disposition: [facility] Facility Anticipated Discharge Timeframe: within 24 hours
[2020-07-08] MEDS: ARIPIPRAZOLE 2 MG TABLET PO SCH (22:31)
[2020-07-09] MEDS: DIVALPROEX SODIUM 125 MG CAP.SPRINK PO SCH ×3 (07:22→22:05)
[2020-07-09] MEDS: DOCUSATE SODIUM 100 MG CAPSULE PO SCH (10:52)
[2020-07-09] MEDS: RIVAROXABAN 10 MG TABLET PO SCH (10:52)
[2020-07-09] MEDS: BUPROPION HCL 75 MG TABLET PO SCH (10:52)
[2020-07-09] MEDS: PAROXETINE HCL 20 MG TABLET PO SCH (10:52)
--- NOTE | 2020-07-09 15:05 | PDOC PROGRESS REPORT ---
Subjective Progress Note for:: 07/09/20 Subjective:: LUCHO BROWN is a 79 year old female with history of recent surgery of the left hip ORIF, recurrent UTI, and dementia who presents to the hospital from [facility] on 07/01/2020. Has been a social hold in the ER after patient's presented because of difficulty with care for patient and [facility] given her recent ORIF and her demented state. She has been awaiting placement at nursing facility for rehab. Hospitalist service consulted today because patient has been spiking fevers. Work-up currently has not revealed any source of infection with negative urinalysis, unchanged chest x-ray and pending COVID-19 resolved. Patient really not able to give me much in terms of subjective. D2 hospital stay. She was seen and examined at bedside. She has baseline dementia so she is unable to say any specific complains but she said no when asked if she has pain on her hip or her belly. She has not had a fever for 2 days now and WBC count is back to normal. Ortho assessed her wound and reviewed her scans and stated that there does not seem to be any sign of infection on her operative site. Blood cultures have been negative as well. COVID 19 negative. D3 hospital stay she remained stable and will be discharged back to [facility]. D4 hospital stay. She was not discharged yesterday because her daughter wishes for her to go to [facility]. She remains afebrile with no white count. Plan is to discharge her tomorrow. D5 hospital stay. She was seen and examined at bedside. She is awake, denies SOB, chest pain. Appetite fair to good. No fever x 3 days. Reason For Visit: FEVER Physical Exam Vital Signs: Temp Pulse Resp BP Pulse Ox 98.6 F 82 18 136/74 H 98 07/09/20 12:00 07/09/20 12:00 07/09/20 12:00 07/09/20 12:00 07/09/20 12:00 Intake & Output 07/08/20 07/09/20 07/10/20 06:59 06:59 06:59 Intake Total 1760 1857 Balance 1760 1857 Weight 82 kg General appearance: PRESENT: no acute distress, hard of hearing Head exam: PRESENT: atraumatic, normocephalic Eye exam: PRESENT: EOMI, PERRLA Mouth exam: PRESENT: moist Neck exam: PRESENT: full ROM Respiratory exam: PRESENT: clear to auscultation colmean, symmetrical, unlabored. ABSENT: rales Cardiovascular exam: PRESENT: RRR, +S1, +S2 GI/Abdominal exam: PRESENT: soft. ABSENT: rebound, tenderness Musculoskeletal exam: PRESENT: other - limited ROM Neurological exam: PRESENT: alert - has baseline dementia but she is very pleasant Psychiatric exam: PRESENT: normal mood Results Laboratory Results: 07/06/20 05:58 07/05/20 08:09 07/04/20 14:05 Blood Blood Culture - Final NO GROWTH IN 5 DAYS 07/04/20 07/04/20 14:05 14:05 Creatine Kinase 28 L Troponin I < 0.012 Impressions: Pelvis X-Ray 07/02/20 10:50 IMPRESSION: Status post left femoral neck ORIF. Age-indeterminate avulsion injury of the left lesser trochanter. Abdomen/Pelvis CT 07/02/20 13:22 IMPRESSION: 1. Nonobstructing nephrolithiasis. No evidence of obstructive uropathy or acute intra-abdominal infectious/inflammatory process. 2. Status post ORIF of the left femur with age indeterminate avulsion injury of the lesser trochanter ; recommend correlation for mechanism of injury and point tenderness. Given the lack of surrounding soft tissue findings, favor this to be a chronic injury. 3. Partially imaged left breast nodule ; no local mammograms for the purposes of direct comparison. Recommend correlate with outside studies or obtain routine screening mammogram if none have been performed. Chest X-Ray 07/04/20 13:20 IMPRESSION: NO SIGNIFICANT RADIOGRAPHIC FINDING IN THE CHEST. Assessment and Plan - Diagnosis (1) Fever Qualifiers: Fever type: unspecified Qualified Code(s): R50.9 - Fever, unspecified Is this a current diagnosis for this admission?: Yes Plan: -Noted to have high-grade fever on admission -She has been afebrile for at least 2 days now -WBC back to normal with no antibiotics - blood cultures negative -Urine negative for UTI -COVID test negative -Reason for fever unlikely infectious in origin -Plan to discharge back to [facility] (2) Status post open reduction and internal fixation (ORIF) of fracture Is this a current diagnosis for this admission?: Yes Plan: -Status post left hip ORIF -CT scan did not show any soft tissue findings -Wound evaluated by Ortho no concern for infection -Would have to follow-up with the Ortho surgeon who did her surgery -PT/OT following (3) Dementia Qualifiers: Dementia type: Alzheimer's disease Alzheimer's disease onset: unspecified onset Dementia behavioral disturbance: with behavioral disturbance Qualified Code(s): G30.9 - Alzheimer's disease, unspecified; F02.81 - Dementia in other diseases classified elsewhere with behavioral disturbance Is this a current diagnosis for this admission?: Yes Plan: Has baseline dementia No acute intervention (4) Person under investigation for COVID-19 Is this a current diagnosis for this admission?: Yes Plan: -COVID test negative (5) Hip fracture, intertrochanteric Qualifiers: Encounter type: subsequent encounter Fracture type: closed Is this a current diagnosis for this admission?: Yes Plan: -Status post ORIF in another hospital - PT/OT to see - Plan Summary Summary: Awaiting for [facility] to accept her back since she ahs been afebrile for 4 days now. - Time Time Spent with patient: 15-24 minutes Anticipated Discharge Disposition: [facility] Facility Anticipated Discharge Timeframe: to be determined
[2020-07-09] MEDS: DEXTROSE 5%-LACTATED RINGERS 1,000 ML IV PRN (15:16)
[2020-07-09] MEDS: ARIPIPRAZOLE 2 MG TABLET PO SCH (22:04)
[2020-07-10] MEDS: DIVALPROEX SODIUM 125 MG CAP.SPRINK PO SCH ×3 (05:22→22:12)
[2020-07-10] MEDS: RIVAROXABAN 10 MG TABLET PO SCH (09:26)
[2020-07-10] MEDS: BUPROPION HCL 75 MG TABLET PO SCH (09:26)
[2020-07-10] MEDS: DOCUSATE SODIUM 100 MG CAPSULE PO SCH (09:26)
[2020-07-10] MEDS: PAROXETINE HCL 20 MG TABLET PO SCH (09:26)
--- NOTE | 2020-07-10 19:41 | PDOC PROGRESS REPORT ---
Subjective Progress Note for:: 07/10/20 Subjective:: LUCHO BROWN is a 79 year old female with history of recent surgery of the left hip ORIF, recurrent UTI, and dementia who presents to the hospital from [facility] on 07/01/2020. Has been a social hold in the ER after patient's presented because of difficulty with care for patient and [facility] given her recent ORIF and her demented state. She has been awaiting placement at nursing facility for rehab. Hospitalist service consulted today because patient has been spiking fevers. Work-up currently has not revealed any source of infection with negative urinalysis, unchanged chest x-ray and pending COVID-19 resolved. Patient really not able to give me much in terms of subjective. D2 hospital stay. She was seen and examined at bedside. She has baseline dementia so she is unable to say any specific complains but she said no when asked if she has pain on her hip or her belly. She has not had a fever for 2 days now and WBC count is back to normal. Ortho assessed her wound and reviewed her scans and stated that there does not seem to be any sign of infection on her operative site. Blood cultures have been negative as well. COVID 19 negative. D3 hospital stay she remained stable and will be discharged back to [facility]. D4 hospital stay. She was not discharged yesterday because her daughter wishes for her to go to [facility]. She remains afebrile with no white count. Plan is to discharge her tomorrow. D5 hospital stay. She was seen and examined at bedside. She is awake, denies SOB, chest pain. Appetite fair to good. No fever x 3 days For discharge today. Reason For Visit: FEVER Physical Exam Vital Signs: Temp Pulse Resp BP Pulse Ox 98.3 F 74 16 121/50 L 98 07/10/20 13:15 07/10/20 13:15 07/10/20 13:15 07/10/20 13:15 07/10/20 13:15 Intake & Output 07/09/20 07/10/20 07/11/20 06:59 06:59 06:59 Intake Total 1857 2260 600 Balance 1857 2260 600 General appearance: PRESENT: no acute distress, cooperative, hard of hearing Head exam: PRESENT: atraumatic, normocephalic Eye exam: PRESENT: EOMI, PERRLA Ear exam: PRESENT: normal external ear exam Mouth exam: PRESENT: moist Neck exam: PRESENT: full ROM Respiratory exam: PRESENT: clear to auscultation coleman, symmetrical, unlabored. ABSENT: wheezes Cardiovascular exam: PRESENT: RRR, +S1, +S2 Vascular exam: PRESENT: normal capillary refill GI/Abdominal exam: PRESENT: normal bowel sounds, soft. ABSENT: rebound, tenderness Extremities exam: PRESENT: other - Limited range of motion Neurological exam: PRESENT: alert, awake Psychiatric exam: PRESENT: normal mood Results Laboratory Results: 07/06/20 05:58 07/05/20 08:09 07/04/20 07/04/20 14:05 14:05 Creatine Kinase 28 L Troponin I < 0.012 Impressions: Pelvis X-Ray 07/02/20 10:50 IMPRESSION: Status post left femoral neck ORIF. Age-indeterminate avulsion injury of the left lesser trochanter. Abdomen/Pelvis CT 07/02/20 13:22 IMPRESSION: 1. Nonobstructing nephrolithiasis. No evidence of obstructive uropathy or acute intra-abdominal infectious/inflammatory process. 2. Status post ORIF of the left femur with age indeterminate avulsion injury of the lesser trochanter ; recommend correlation for mechanism of injury and point tenderness. Given the lack of surrounding soft tissue findings, favor this to be a chronic injury. 3. Partially imaged left breast nodule ; no local mammograms for the purposes of direct comparison. Recommend correlate with outside studies or obtain routine screening mammogram if none have been performed. Chest X-Ray 07/04/20 13:20 IMPRESSION: NO SIGNIFICANT RADIOGRAPHIC FINDING IN THE CHEST. Assessment and Plan - Diagnosis (1) Fever Qualifiers: Fever type: unspecified Qualified Code(s): R50.9 - Fever, unspecified Is this a current diagnosis for this admission?: Yes Plan: -Noted to have high-grade fever on admission -She has been afebrile for at least 2 days now -WBC back to normal with no antibiotics - blood cultures negative -Urine negative for UTI -COVID test negative -Reason for fever unlikely infectious in origin -Plan to discharge back to [facility] (2) Status post open reduction and internal fixation (ORIF) of fracture Is this a current diagnosis for this admission?: Yes Plan: -Status post left hip ORIF -CT scan did not show any soft tissue findings -Wound evaluated by Ortho no concern for infection -Would have to follow-up with the Ortho surgeon who did her surgery -PT/OT following (3) Dementia Qualifiers: Dementia type: Alzheimer's disease Alzheimer's disease onset: unspecified onset Dementia behavioral disturbance: with behavioral disturbance Qualified Code(s): G30.9 - Alzheimer's disease, unspecified; F02.81 - Dementia in other diseases classified elsewhere with behavioral disturbance Is this a current diagnosis for this admission?: Yes Plan: Has baseline dementia No acute intervention (4) Person under investigation for COVID-19 Is this a current diagnosis for this admission?: Yes Plan: -COVID test negative (5) Hip fracture, intertrochanteric Qualifiers: Encounter type: subsequent encounter Fracture type: closed Is this a current diagnosis for this admission?: Yes Plan: -Status post ORIF in another hospital - PT/OT to see - Plan Summary Summary: Awaiting for [facility] to accept her back since she ahs been afebrile for 4 days now. - Time Time Spent with patient: 25-34 minutes Anticipated Discharge Disposition: Residential Facility Anticipated Discharge Timeframe: within 24 hours
[2020-07-10] MEDS: ARIPIPRAZOLE 2 MG TABLET PO SCH (22:12)
[2020-07-11] MEDS: DIVALPROEX SODIUM 125 MG CAP.SPRINK PO SCH ×2 (05:33→15:16)
[2020-07-11] MEDS: BUPROPION HCL 75 MG TABLET PO SCH (10:12)
[2020-07-11] MEDS: RIVAROXABAN 10 MG TABLET PO SCH (10:12)
[2020-07-11] MEDS: DOCUSATE SODIUM 100 MG CAPSULE PO SCH (10:12)
[2020-07-11] MEDS: PAROXETINE HCL 20 MG TABLET PO SCH (10:12)
[2020-07-11 16:35] VITALS: BP 103/56
== END 2020-07-11 20:09 ==
LOC: ER 14:38 → EH 07-04 19:12 → INTOOBSV 07-04 19:12 → 3N 07-04 21:21 → 4W 07-05 10:46 → 4N 07-07 15:51
PROVIDERS: ADMIT Internal Medicine; ATTEND Internal Medicine
DX: R50.9 Fever, unspecified (principal); S72.142S Displaced intertrochanteric fracture of left femur, sequela; W19.XXXS Unspecified fall, sequela; R05 Cough; G30.9 Alzheimer's disease, unspecified; F02.81 Dementia in other diseases classified elsewhere, unspecified severity, with behavioral disturbance; Z20.828 Contact with and (suspected) exposure to other viral communicable diseases; D72.829 Elevated white blood cell count, unspecified; R26.2 Difficulty in walking, not elsewhere classified; Z75.1 Person awaiting admission to adequate facility elsewhere; Z79.899 Other long term (current) drug therapy; F32.9 Major depressive disorder, single episode, unspecified; J44.9 Chronic obstructive pulmonary disease, unspecified; Z87.440 Personal history of urinary (tract) infections; Z96.7 Presence of other bone and tendon implants
CPT/HCPCS: 99283; 51701; 36415 ×4; 87040; 82550; 83605; 85025 ×3; 85027; 80048; 80053 ×2; 81001 ×2; 84484; 80164; 71045; 93005; 93010; 97530 ×8; 97110; 97163; 97535 ×2; 97167; G0378 ×7; U0003 ×2; A9270 ×69; J7121 ×2; J7030 ×4; J7040; C9803 ×2; 87635; J3490

== ENCOUNTER → 2020-08-02 | Outpatient (CLI) | payer MEDICARE, MEDICAID ==
--- NOTE | 2020-08-02 13:25 | WOMENS IMAGING REPORT ---
EXAM DESCRIPTION: BILAT DIAGNOSTIC MAMMO W/CAD; U/S BREAST UNILAT LIMITED IMAGES COMPLETED DATE/TIME: 08/02/2020 12:47 pm; 08/02/2020 1:09 pm REASON FOR STUDY: N63.23 UNSPECIFIED LUMP IN THE LEFT BREAST, LOWER OUTER QUADRANT; LT BREAST N63.23 N63.23 UNSPECIFIED LUMP IN THE LEFT BREAST, LOWER OUTER QUAD COMPARISON: None. EXAM PARAMETERS: Standard craniocaudal and mediolateral oblique views of each breast recorded using digital acquisition. Read with the assistance of CAD: [facility] - [employer] Tender Version 9.2 LIMITATIONS: Difficulty positioning. FINDINGS: RIGHT BREAST MASSES: No suspicious masses. CALCIFICATIONS: No new or suspicious calcifications. ARCHITECTURAL DISTORTION: None. ASYMMETRY: None noted. OTHER: No other significant findings. LEFT BREAST MASSES: Smooth mass 12 o'clock anterior 3rd with adjacent biopsy clip. CALCIFICATIONS: No new or suspicious calcifications. ARCHITECTURAL DISTORTION: None. ASYMMETRY: None noted. OTHER: No other significant finding. 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 There is an adjacent marker clip. IMPRESSION: Benign findings. BREAST DENSITY: b. There are scattered areas of fibroglandular density. BIRAD: ASSESSMENT: 2 Benign findings. RECOMMENDATION: RECOMMENDED FOLLOW UP: Birads 1 or 2: The patient should resume routine screening . SPECIFIC INTERVENTION/IMAGING/CONSULTATION RECOMMENDED:No additional intervention/ imaging/consultati on needed at this time. COMMUNICATION:The imaging findings were not discussed with the patient. Her referring provider has be en notified of the findings. COMMENT: The patient has been notified of the results by letter per SA requirements. Additional no tification policies are in place for contacting patient with suspicious or incomplete findings. Quality ID #[id number]: The [employer] recommends an annual screening mammogram for women aged 40 years or over. This facility utilizes a reminder system to ensure that all patients receive reminder letters, and/or direct phone calls for appointments. This includes reminders for routine scr eening mammograms, diagnostic mammograms, or other Breast Imaging Interventions when appropriate. Th is patient will be placed in the appropriate reminder system. TECHNICAL DOCUMENTATION: FINDING NUMBER: (1) ASSESSMENT: (1) JOB ID: [id number] 2010 [employer]- All Rights Reserved Reading location - IP/workstation name: [email or web address]
--- NOTE | 2020-08-02 13:25 | WOMENS IMAGING REPORT ---
EXAM DESCRIPTION: BILAT DIAGNOSTIC MAMMO W/CAD; U/S BREAST UNILAT LIMITED IMAGES COMPLETED DATE/TIME: 08/02/2020 12:47 pm; 08/02/2020 1:09 pm REASON FOR STUDY: N63.23 UNSPECIFIED LUMP IN THE LEFT BREAST, LOWER OUTER QUADRANT; LT BREAST N63.23 N63.23 UNSPECIFIED LUMP IN THE LEFT BREAST, LOWER OUTER QUAD COMPARISON: None. EXAM PARAMETERS: Standard craniocaudal and mediolateral oblique views of each breast recorded using digital acquisition. Read with the assistance of CAD: .[facility] - [employer] Worker Version 9.2 LIMITATIONS: Difficulty positioning. FINDINGS: RIGHT BREAST MASSES: No suspicious masses. CALCIFICATIONS: No new or suspicious calcifications. ARCHITECTURAL DISTORTION: None. ASYMMETRY: None noted. OTHER: No other significant findings. LEFT BREAST MASSES: Smooth mass 12 o'clock anterior 3rd with adjacent biopsy clip. CALCIFICATIONS: No new or suspicious calcifications. ARCHITECTURAL DISTORTION: None. ASYMMETRY: None noted. OTHER: No other significant finding. 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 There is an adjacent marker clip. IMPRESSION: Benign findings. BREAST DENSITY: b. There are scattered areas of fibroglandular density. BIRAD: ASSESSMENT: 2 Benign findings. RECOMMENDATION: RECOMMENDED FOLLOW UP: Birads 1 or 2: The patient should resume routine screening . SPECIFIC INTERVENTION/IMAGING/CONSULTATION RECOMMENDED:No additional intervention/ imaging/consultati on needed at this time. COMMUNICATION:The imaging findings were not discussed with the patient. Her referring provider has be en notified of the findings. COMMENT: The patient has been notified of the results by letter per SA requirements. Additional no tification policies are in place for contacting patient with suspicious or incomplete findings. Quality ID #[id number]: The [employer] recommends an annual screening mammogram for women aged 40 years or over. This facility utilizes a reminder system to ensure that all patients receive reminder letters, and/or direct phone calls for appointments. This includes reminders for routine scr eening mammograms, diagnostic mammograms, or other Breast Imaging Interventions when appropriate. Th is patient will be placed in the appropriate reminder system. TECHNICAL DOCUMENTATION: FINDING NUMBER: (1) ASSESSMENT: (1) JOB ID: [id number] 2010 [employer]- All Rights Reserved Reading location - IP/workstation name: [facility]
== END ==
LOC: WI 12:27
PROVIDERS: ATTEND Family Medicine
DX: N63.23 Unspecified lump in the left breast, lower outer quadrant (principal)
CPT/HCPCS: 76642; 77066